=== PATIENT | female | born 1955 | race Caucasian/White ===

== ENCOUNTER 2017-04-11 08:23 | Day surgery (SDC) | payer OTHER ==
[2017-04-06 11:11] VITALS: BMI 37.2
[~2017-04-11 08:23] MED LIST: LACTATED RINGERS 1,000 ML IV SCH
[2017-04-11 09:10] VITALS: TEMP 98.3
[2017-04-11] MEDS ORDERED: LIDOCAINE 1% 20 ML VIAL (10MG/ML) FOR IV START INTRADERMA ONE (09:20)
[2017-04-11 09:25] LABS: Glucose,Whole Blood 121 mg/dL (75-99)
[2017-04-11] MEDS ORDERED: PROPOFOL 10 MG/ML 20 ML VIAL IV ONE (10:14)
--- NOTE | 2017-04-11 10:43 | P.PCN ---
Date of Procedure: 04/11/17 Preoperative Diagnosis: Postoperative Diagnosis: Procedure(s) Performed: Procedure: Total colonoscopy. Preoperative diagnosis: Screening for neoplasia. Postoperative diagnosis: Exam within normal limits. Preparation: HalfLytely prep. Sedation: Was provided by anesthesia. Brief clinical history: The patient is a 61-year-old female who is referred for this evaluation for screening for neoplasia. She has history of endometrial cancer for which she underwent hysterectomy and was advised surveillance colonoscopies every 5 years or so. She has no abdominal complaints, bleeding or anemia. Procedure: With the patient on her left lateral decubitus position and after informed consent and adequate sedation, the perianal area was inspected and it did not show any fissures or fistulas. There were no masses felt on digital rectal examination. The Olympus CFQ 160L video colonoscope was then inserted in the rectum in the usual fashion and advanced to the cecum. The mucosa appeared healthy. No polyps or tumors were seen or any obvious diverticular disease or other pathology. I retroflexed the endoscope in the rectum before the endoscope was withdrawn. The patient tolerated the procedure well. Plan: The patient was reassured. With her history, I recommended repeat exam in 5 years. Implants: Indications for Procedure: Operative Findings: Description of Procedure:
[2017-04-11 11:21] VITALS: BP 127/73; PULSE 57; RESP 16
== END 2017-04-11 11:36 | disposition home or self-care (01) ==
LOC: ORWHC2ENDO 08:23
DX: Z12.11 Encounter for screening for malignant neoplasm of colon (principal); I10 Essential (primary) hypertension; E78.5 Hyperlipidemia, unspecified; Z86.718 Personal history of other venous thrombosis and embolism; Z86.711 Personal history of pulmonary embolism; Z85.51 Personal history of malignant neoplasm of bladder; Z79.899 Other long term (current) drug therapy
CPT/HCPCS: J2704; G0121

== ENCOUNTER → 2018-06-07 | Outpatient (CLI) | payer OTHER ==
[2018-06-07 11:32] LABS: Blood Urea Nitrogen 18 mg/dL (7-17)
--- NOTE | 2018-06-07 13:28 | CT ---
EXAMINATION TYPE: CT ChestAbdPelvis w con DATE OF EXAM: 06/07/2018 COMPARISON: 02/23/2018 and 02/16/2017 HISTORY: History of endometrial CA CT DLP: 2339 mGycm. Automated Exposure Control for Dose Reduction was Utilized. CONTRAST: CT scan of the thorax, abdomen and pelvis is performed with IV Contrast, patient injected with 100 mL of Isovue 300. FINDINGS: LUNGS: Spiculated area of possible scarring is seen in the location of the previously identified roun ded 1.9 cm right lower lobe pulmonary nodule on series 4 image 31 on series 7 image 79. This could re late to posttreatment change. Additionally the previously seen 9 mm nodule within the lingula is not triangular appearance measuring approximately 4 mm on series 4 image 26. The adjacent previously seen left upper lobe pulmonary nodule is no longer identified with a ill-defined area of groundglass atte nuation in the region of the previously seen seen nodule on series 4 image 23. Additionally within th e anterior right upper lobe at the mediastinal border on series 4 image 20 in the previously seen loc ation of the 1.1 cm soft tissue mass there is an elongated residual 5 mm density. No new pulmonary no dules are seen. MEDIASTINUM: There are no greater than 1 cm hilar or mediastinal lymph nodes. No pericardial effusi on is seen. Mild coronary artery calcifications are present within the left main coronary artery. LIVER/GB: Hepatic parenchyma is diffusely hypoattenuated in comparison to that of the spleen, most co mmonly seen in hepatic steatosis. This finding limits evaluation for hepatic masses. No gross evidenc e of hepatic mass is seen. No intrahepatic biliary ductal dilatation. Gallbladder surgically absent. PANCREAS: No significant abnormality is seen. SPLEEN: No significant abnormality is seen. ADRENALS: No significant abnormality is seen. KIDNEYS: Kidneys enhance and excrete symmetrically. No hydronephrosis. Small posterior cortical renal scar is seen of the inferior pole. BOWEL: No dilated large or small bowel. Appendix is within normal limits of size, partially contrast- filled and partially air-filled. GENITAL ORGANS: Uterus is surgically absent. Ovaries are not identified and also may be surgically ab sent or atrophic LYMPH NODES: No greater than 1cm abdominal or pelvic lymph nodes are appreciated. Nonenlarged left ex ternal iliac chain lymph nodes are similar to the prior and seen on series 3 image 106 and 107. OSSEOUS STRUCTURES: Mild multilevel degenerative changes of the spine are noted. No new suspicious os seous lesions. IMPRESSION: 1. Response to treatment. Marked decrease in size of the bilateral pulmonary nodules with near comple te resolution. No new pulmonary nodules or mediastinal adenopathy. 2. No evidence of infradiaphragmatic visceral metastasis or lymphadenopathy.
== END ==
LOC: RADCTMAIN 10:46
PROVIDERS: ATTEND Obstetrics & Gynecology
DX: C54.1 Malignant neoplasm of endometrium (principal)
CPT/HCPCS: 82565; 84520; 71260; 74177; Q9967

== ENCOUNTER → 2018-10-29 | Outpatient (CLI) | payer OTHER ==
[2018-10-29 09:23] LABS: Blood Urea Nitrogen 22 mg/dL (7-17)
--- NOTE | 2018-10-29 10:28 | CT ---
EXAMINATION TYPE: CT chest w con DATE OF EXAM: 10/29/2018 COMPARISON: CT June 07, 2018 and older studies. PET/CT April 23, 2016. HISTORY: follow up Lung CA and Thoracotomy CT DLP: 618.40 mGycm. Automated Exposure Control for Dose Reduction was Utilized. TECHNIQUE: CT scan of the thorax is performed following with IV Contrast, patient injected with 100m l mL of Isovue 300. FINDINGS: LUNGS: Surgical sutures medially right infrahilar level are redemonstrated with adjacent irregular co nsolidation and/or parenchymal scarring, there is new tiny right pleural fluid collection on current study. Left lung remains clear. No obvious new nodule or mass is present. No pneumothorax is seen tera aterally. MEDIASTINUM: There are no new greater than 1 cm mediastinal lymph nodes. Some prominent but subcenti meter lymph nodes are seen. For reference right pericarinal lymph node measures 9 x 7 mm on current s tudy image 25 is larger versus most recent prior CT. There is enlarging low dense right hilar adenopa thy or low dense consolidation axial image 34 measuring 2.1 x 1.3 cm. No cardiomegaly or pericardial effusion is seen. Coronary artery calcification is redemonstrated which is noted marker for coronary artery disease. OTHER: Cholecystectomy clips are noted. Liver is low dense consistent with fatty infiltration. Some m ultilevel spurring in the thoracic spine is redemonstrated. IMPRESSION: New tiny right pleural effusion. Enlarging but subcentimeter mediastinal lymph node with new enlarged but low dense right hilar adenopathy or nodular consolidation. Recurrent neoplasm cannot be entirely excluded. Consider repeat PET/CT to further evaluate.
== END | disposition home or self-care (01) ==
LOC: RADCTMAIN 08:29
PROVIDERS: ATTEND Thoracic Surgery (Cardiothoracic Vascular Surgery)
DX: J90 Pleural effusion, not elsewhere classified (principal); R59.0 Localized enlarged lymph nodes; Z98.890 Other specified postprocedural states
CPT/HCPCS: 82565; 84520; 71260; 36415; Q9967

== ENCOUNTER → 2018-11-03 | Outpatient (CLI) | payer OTHER ==
--- NOTE | 2018-11-04 10:01 | PE ---
EXAMINATION TYPE: PET CT fusion skull to thigh DATE OF EXAM: 11/03/2018 COMPARISON: CT chest October 29, 2018. CT chest abdomen and pelvis June 07, 2018 and older CTs. PET/ CT April 23, 2016. HISTORY: History of right lung cancer diagnosed 2012 completed radiation treatment in August 2012 an d had right lung surgery July 11, 2018. TECHNIQUE: Following the intravenous administration of 14.41 mCi of F-18 FDG, whole body images are performed from the skull base to the midthigh. Images are reviewed on the computer in the coronal, a xial, and sagittal planes. Reconstructed rotating images are created on independent workstation and reviewed on the computer. A localization noncontrast CT is performed in conjunction with the PET sc an. SCAN: Subsequent FINDINGS: SKULL BASE AND NECK: No new areas of abnormal hypermetabolic uptake are present CHEST, MEDIASTINUM, AND HILAR REGION: Surgical change right infrahilar level medially there are axial image 86 is redemonstrated. No new areas of abnormal hypermetabolic uptake or suspicious nodularity is seen. Mild hypermetabolic uptake max SUV of 2.7 image 84 along area of linear scarring is presumed postsurgical. No suspicious adenopathy is present. New right-sided volume loss with mediastinal shif t is noted. No abnormal hypermetabolic uptake right infrahilar level at area of low dense consolidati on on recent CT noted near axial image 81. Trace right basilar pleural effusion axial image 103 is re demonstrated without hypermetabolic uptake. ABDOMEN AND PELVIS: There is small to moderate length segment of right: With mild to moderate wall th ickening over a length of roughly 6 cm on reconstructed coronal images, max SUV at this level is 4.96 . Concentric colonic neoplasm cannot be excluded. This area appeared fairly unremarkable with better contrast opacification on whole-body CT June 07, 2018. I would advise colonoscopy correlation of has not been performed in last 3 years. No additional areas of suspicious hypermetabolic uptake. OSSEOUS STRUCTURES: No areas of suspicious hypermetabolic uptake. OTHER CT: There is coronary artery calcification which is noted marker for coronary artery disease. Liver is diffusely low dense consistent with fatty infiltration. Cholecystectomy clips are redemonstr ated. Uterus is surgically absent or markedly atrophic. A few scattered pelvic phleboliths are present. There is mild calcified plaque of aorta extending into branch vessels. There is facet arthropathy in the lower lumbar spine. IMPRESSION: No suspicious hypermetabolic uptake in the mediastinum or right hilar region to suggest n eoplastic recurrence after surgery. No metastatic disease is seen. Only area of concern is the right colon on PET/CT, this area appeared fairly unremarkable on May 2018 whole-body CT.
== END ==
LOC: RADPETMAIN 11:52
PROVIDERS: ATTEND Obstetrics & Gynecology
DX: C54.1 Malignant neoplasm of endometrium (principal); R91.1 Solitary pulmonary nodule
CPT/HCPCS: 78815; A9552

== ENCOUNTER → 2019-05-10 | Outpatient (CLI) | payer OTHER ==
[2019-05-10 11:50] LABS: African American GFR (CKD) >90 (>60 ml/min/1.73 sqM); Blood Urea Nitrogen 19 mg/dL (7-17)
--- NOTE | 2019-05-10 14:11 | CT ---
EXAMINATION TYPE: CT ChestAbdPelvis w con DATE OF EXAM: 05/10/2019 COMPARISON: 10/29/2018 and 06/07/2018 HISTORY: R91.8 endometrial ca CONTRAST: CT scan of the chest, abdomen and pelvis is performed with Oral Contrast and with IV Contrast, patien t injected with 100 mL of Isovue 300. CT Chest: LUNGS: There is enlarging right perihilar mass measuring 3.9 x 2.0 cm. Neoplasm is not excluded. Line ar scarring is noted within the right middle lobe and right lower lobe. No additional mass is seen. R esolution of previously noted pleural effusion. MEDIASTINUM: Thoracic aorta is of normal caliber. The heart is not enlarged. No evidence for media stinal mass or adenopathy. HILAR STRUCTURES: No evidence for mass. No hilar adenopathy is appreciated. OTHER: No significant abnormality. CONTRAST CT ABDOMEN AND PELVIS FINDINGS: LIVER/GB: The gallbladder surgically absent. There is fatty hepatic infiltration noted. No space occu pying hepatic lesion. Biliary tree is of normal caliber. PANCREAS: No inflammation. No distinct mass. SPLEEN: No splenic enlargement. No lesion seen. ADRENALS: No nodule. No thickening. KIDNEYS/BLADDER: No hydronephrosis. No nephrolithiasis. No disctinct renal mass. BOWEL: Normal appendix. Normal bowel caliber. No inflammation. GENITAL ORGANS: Hysterectomy changes noted. No evidence for recurrent mass. The ovaries are not clear ly visualized. LYMPH NODES: No greater than 1cm abdominal or pelvic lymph nodes are appreciated. AORTA: No significant abnormality. OSSEOUS STRUCTURES: Vacuum disc changes lumbar spine. OTHER: No significant additional abnormality is seen. IMPRESSION: 1. Enlarging right hilar mass is suspicious for a neoplasm. Consider bronchoscopic evaluation and/or PET/CT. 2. Fatty liver. 3. No evidence for recurrent disease.
== END | disposition home or self-care (01) ==
LOC: RADCTMAIN 10:51
PROVIDERS: ATTEND Internal Medicine Hematology & Oncology
DX: Z03.89 Encounter for observation for other suspected diseases and conditions ruled out (principal); K76.0 Fatty (change of) liver, not elsewhere classified; R91.8 Other nonspecific abnormal finding of lung field; C54.1 Malignant neoplasm of endometrium
CPT/HCPCS: 82565; 84520; 71260; 74177; 36415; Q9967

== ENCOUNTER → 2019-06-08 | Outpatient (CLI) | payer OTHER ==
--- NOTE | 2019-06-12 10:57 | PE ---
Nuclear medicine PET/CT HISTORY: Carcinoma of endometrium, C 54.1, subsequent Patient received 11.1 mCi F-18 FDG intravenously in delayed scanning was performed from the skull bas e to the mid thighs. Localization and attenuation correction CT scan was performed. Correlation CT chest abdomen pelvis 05/10/2019, prior nuclear medicine PET/CT 11/03/2018 NECK and CHEST: Calcifications in the tonsillar pillars likely due to chronic infection. There is no cervical adenopathy. No abnormal supraclavicular, mediastinal, axillary, or hilar adenopathy. Coronar y artery calcification is present. The abnormal attenuation in the right lung base shows a similar ap pearance to previous CT, there are postop changes, findings at the right lung base likely represent r esidual postoperative finding, there is no associated hypermetabolic uptake, no pleural or pericardia l effusion. ABDOMEN: No evident liver mass or retroperitoneal adenopathy. No suspicious hypermetabolic uptake. Pa tient is post cholecystectomy. Uterus and adnexal structures are not seen. There is no pelvic adenopa thy or free fluid, no ascites. Osseous structures are stable. No suspicious hypermetabolic uptake. IMPRESSION: Postop changes. No recurrence evident.
== END | disposition home or self-care (01) ==
LOC: RADPETMAIN 10:00
PROVIDERS: ATTEND Internal Medicine Hematology & Oncology
DX: C54.1 Malignant neoplasm of endometrium (principal); Z90.49 Acquired absence of other specified parts of digestive tract
CPT/HCPCS: 78815; A9552

== ENCOUNTER 2019-07-19 10:25 | Day surgery (SDC) | payer OTHER ==
[2019-07-08 14:41] VITALS: BMI 38.0
[~2019-07-19 10:25] MED LIST changes: +ALBUTEROL NEB (CONC) 2.5 MG/0.5 ML INHALATION ONE; +DEXAMETHASONE SOD PHOSPHATE 10 MG/ML 1 ML VIAL IV ONE; +LIDOCAINE 1% 20 ML VIAL (10MG/ML) FOR IV START INTRADERMA PRN; +LIDOCAINE 2% (PF) 20 MG/ML 5 ML VIAL INHALATION ONE; +LIDOCAINE VISCOUS 300 MG/15 ML CUP MUCOUS MEM ONE; +MIDAZOLAM 2 MG/2 ML VIAL IV PRN; +MORPHINE SULFATE 2 MG/ML SYRINGE IV PRN; +ONDANSETRON 4 MG/2 ML VIAL IVP ONE; +ONDANSETRON 4 MG/2 ML VIAL IVP PRN; +SODIUM CHLORIDE 0.9% 1,000 ML IV SCH
[2019-07-19 11:17] LABS: Glucose,Whole Blood 121 mg/dL (75-99)
--- NOTE | 2019-07-19 13:26 | CT ---
EXAMINATION TYPE: CT Chest shabnam Holt Protocol DATE OF EXAM: 07/19/2019 COMPARISON: 06/08/2019 HISTORY: 64-year-old female Pre procedural imaging for navigational purposes, pulmonary nodule/mass. TECHNIQUE: Contiguous axial scanning of the chest without IV contrast. Both inspiratory and expiratio n for imaging is performed. Coronal and sagittal reconstructions performed. CT DLP: 727 mGycm Automated exposure control for dose reduction was used. FINDINGS: Imaging for navigational purposes. There seems to be some linear densities in the right lower lobe, q uestion some type of surgical material. Prior right posterior thoracotomy with some mild herniating f at into the subpleural region. Linear areas of probable scarring are present at the right base. Mild respiratory motion artifact in the lower lungs. No consolidation or pleural effusion. Heart upper limits of normal in size without pericardial effusion. Mild coronary vessel calcification s are noted. Ectatic ascending aorta 3.6 cm. Conventional arch vessel branching anatomy. No thoracic lymphadenopathy identified. Visualized upper abdomen shows cholecystectomy clips. Bones: Anterior endplate spondylosis lower thoracic spine. IMPRESSION: IMAGING FOR NAVIGATIONAL PURPOSES. LINEAR DENSITIES IN THE RIGHT LOWER LOBE MAY REPRESENT SURGICAL MA TERIAL ESPECIALLY GIVEN PRIOR THORACOTOMY CHANGE POSTERIOR RIGHT HEMITHORAX. SMALL AMOUNT OF HERNIATI NG FAT IS PRESENT EXTENDING INTO THE SUBPLEURAL REGION HERE.
[2019-07-19] MEDS ORDERED: ROCURONIUM BROMIDE 10 MG/ML 10 ML VIAL IV ONE (14:06)
[2019-07-19] MEDS ORDERED: MIDAZOLAM 2 MG/2 ML VIAL ONE (14:06)
[2019-07-19] MEDS ORDERED: fentaNYL (PF) 50 MCG/ML 2 ML AMP ONE (14:06)
[2019-07-19] MEDS ORDERED: GLYCOPYRROLATE 0.2 MG/ML 2 ML VIAL ONE (14:06)
[2019-07-19] MEDS ORDERED: SUCCINYLCHOLINE CHLORIDE 100 MG/5 ML SYR IV ONE (14:06)
[2019-07-19] MEDS ORDERED: LIDOCAINE 1% INJ 10MG/ML (20 ML MDV) ONE (14:06)
[2019-07-19] MEDS ORDERED: PROPOFOL 10 MG/ML 20 ML VIAL IV ONE (14:06)
[2019-07-19] MEDS ORDERED: NEOSTIGMINE 1 MG/ML 10 ML VIAL ONE (14:06)
[2019-07-19] MEDS ORDERED: ePHEDrine SULFATE/0.9% NACL/PF 50 MG/5 ML SYRINGE IV ONE (14:06)
[2019-07-19 15:20] VITALS: TEMP 97.6
[2019-07-19 15:42] LABS: Glucose,Whole Blood 148 mg/dL (75-99)
--- NOTE | 2019-07-19 15:49 | XR ---
EXAMINATION TYPE: XR chest 1V portable DATE OF EXAM: 07/19/2019 COMPARISON: CT dated 07/19/2019 HISTORY: Status post bronchoscopy TECHNIQUE: Single frontal view of the chest is obtained. FINDINGS: No postprocedural pneumothorax is seen. In comparison to the most recent chest x-ray of 06/20/2019 there are new multifocal opacities predominating at the right lung base, likely post procedura l atelectasis. Low lung volumes are noted. Surgical sutures at the right lung base are suboptimally v iewed given slight underpenetration and patient body habitus. Cardiomediastinal silhouette remains en larged. No acute osseous pathology. IMPRESSION: New multifocal airspace disease likely relates to postprocedural multifocal atelectasis with low lung volumes. No postprocedural pneumothorax is seen.
[2019-07-19 16:44] VITALS: RESP 20
[2019-07-19 16:57] VITALS: BP 132/70; PULSE 81
--- NOTE | 2019-07-19 17:51 | P.PCN ---
Date of Procedure: 07/19/19 Preoperative Diagnosis: Right middle lobe opacity Postoperative Diagnosis: Right middle lobe opacity Procedure(s) Performed: Navigational bronchoscopy, TBNA and TBBX of the RML lobe opacity Anesthesia: FLO Surgeon: Chago Morales [employer]ens Fabricating Machine Tender #1: Becki Newton Estimated Blood Loss (ml): 5 Pathology: other Condition: stable Disposition: same day Operative Findings: The patient underwent a CT of the chest using the Veran protocol to map the right middle lobe opacity. This computed tomography scan was performed and the right middle lobe opacity was identified and was mapped and its trajectory leading to the right middle lobe opacity was established. Following that, all this information was uploaded into the [employer] navigational tower. The patient was brought into the operating room. The VPADS were already applied to his chest. The patient was intubated and placed on a mechanical ventilator in the usual fashion by the help of IMPRESSION PRINTER. After achieving adequate anesthesia, the flexible bronchoscope was inserted to the orotracheal tube and was advanced into the lower trachea. Examination of the airways was done. Trachea in this distal portion was within normal limits. Franchesca was sharp in the midline. Examination of the right side showed a right mainstem bronchus was normal, right upper lobe bronchus was normal, the stump for a right lung pneumonectomy was within normal limits and the right middle lobe was identified with 2 segments being the medial and the lateral segment. Examination of the left side include the left mainstem bronchus, left upper lobe bronchus and left lower lobe bronchus and all of the structures were within normal limits. The airway examination was completed. Following that using the forceps navigational system, the appropriate calibration was done using the primary franchesca and the secondary franchesca and the right upper lobe as a reference points. Bronchoscope was then navigated into the right middle lobe bronchus and under navigational guidance, transbronchial needle aspirate and transbronchial biopsies of the right midlung opacity was done without any complications. Several passes were obtained using a 19-gauge cytology needle. Several transbronchial biopsies were also obtained. No bleeding was encountered. Total amount of bleed was less than 5 mL. Bronchoscope was removed and the patient was extubated blood any major difficulties. The patient was seen in recovery and the patient was doing extremely well. The patient will be discharged home once cleared by anesthesia to be followed up on outpatient basis. Note that the airways inspection showed no endobronchial tumors or lesions. There was a normal right lower lobe lobectomy stump.
== END 2019-07-19 17:14 | disposition home or self-care (01) ==
LOC: ORWHC2ENDO 10:25
PROVIDERS: ATTEND Internal Medicine Critical Care Medicine
DX: J98.4 Other disorders of lung (principal); I10 Essential (primary) hypertension; E78.00 Pure hypercholesterolemia, unspecified; E78.5 Hyperlipidemia, unspecified; F32.9 Major depressive disorder, single episode, unspecified; E66.9 Obesity, unspecified; Z68.38 Body mass index [BMI] 38.0-38.9, adult; E11.9 Type 2 diabetes mellitus without complications; Z85.42 Personal history of malignant neoplasm of other parts of uterus; Z90.710 Acquired absence of both cervix and uterus; Z90.49 Acquired absence of other specified parts of digestive tract; Z79.1 Long term (current) use of non-steroidal anti-inflammatories (NSAID); Z79.899 Other long term (current) drug therapy; Z88.8 Allergy status to other drugs, medicaments and biological substances
CPT/HCPCS: 31628; 31627; 88305; 88173; 71045; 71250; J2250; J1100; J2710; J2405; J2001; J3010; J0330; J2704

== ENCOUNTER → 2019-08-12 | Outpatient (CLI) | payer OTHER ==
--- NOTE | 2019-08-12 13:42 | FL ---
EXAMINATION TYPE: FL barium swallow DATE OF EXAM: 08/12/2019 CLINICAL HISTORY: Dysphagia. Prior thoracic surgery. TECHNIQUE: A double contrast esophagram is performed utilizing air and barium. A total of 1 minute and 3 seconds of fluoroscopic time was utilized during procedure. 43 fluoroscopic images were saved. COMPARISON: None FINDINGS: The esophagus shows normal motility and emptying into the stomach. Very small hiatal hernia is noted seen best in the supine position. There is mild gastroesophageal reflux present. No esophag eal strictures seen. Esophageal mucosa is regular other than minimal impression on the posterior cerv ical esophagus by small anterior osteophytes of the cervical spine. Surgical clips are noted in the a bdomen. Slight delay of passage of contrast through the very small hiatal hernia is seen at the gastr oesophageal junction. IMPRESSION: Very small hiatal hernia and mild degree gastroesophageal reflux.
== END ==
LOC: RADUSWWP 08:42
PROVIDERS: ATTEND Family Medicine
DX: K44.9 Diaphragmatic hernia without obstruction or gangrene (principal); K21.9 Gastro-esophageal reflux disease without esophagitis
CPT/HCPCS: 74220

== ENCOUNTER 2019-08-15 06:58 | Day surgery (SDC) | payer OTHER ==
[2019-08-13 15:27] VITALS: BMI 38.0
[~2019-08-15 06:58] MED LIST changes: -ALBUTEROL NEB (CONC) 2.5 MG/0.5 ML INHALATION ONE; -DEXAMETHASONE SOD PHOSPHATE 10 MG/ML 1 ML VIAL IV ONE; -LIDOCAINE 2% (PF) 20 MG/ML 5 ML VIAL INHALATION ONE; -LIDOCAINE VISCOUS 300 MG/15 ML CUP MUCOUS MEM ONE; -MIDAZOLAM 2 MG/2 ML VIAL IV PRN; -MORPHINE SULFATE 2 MG/ML SYRINGE IV PRN; -ONDANSETRON 4 MG/2 ML VIAL IVP ONE; -ONDANSETRON 4 MG/2 ML VIAL IVP PRN; -SODIUM CHLORIDE 0.9% 1,000 ML IV SCH
[2019-08-15 07:19] VITALS: RESP 18; TEMP 98.2
[2019-08-15 07:22] LABS: Glucose,Whole Blood 131 mg/dL (75-99)
[2019-08-15] MEDS ORDERED: LIDOCAINE 1% INJ 10MG/ML (20 ML MDV) ONE (07:32)
[2019-08-15] MEDS ORDERED: PROPOFOL 10 MG/ML 20 ML VIAL IV ONE (07:32)
--- NOTE | 2019-08-15 07:43 | P.GSHP ---
History of Present Illness H&P Date: 08/15/19 CHIEF COMPLAINT: Colon screen HISTORY OF PRESENT ILLNESS: The patient is a 64-year-old female who presents for colon screen. Lower endoscopy was offered for further evaluation and management. PAST MEDICAL HISTORY: Please see list. PAST SURGICAL HISTORY: Please see list. MEDICATIONS: Please see list. ALLERGIES: Please see list. SOCIAL HISTORY: No illicit drug use FAMILY HISTORY: No reports of Crohn disease or ulcerative colitis. REVIEW OF ORGAN SYSTEMS: CONSTITUTIONAL: No reports of fevers or chills. PHYSICAL EXAM: VITAL SIGNS: Stable GENERAL: Well-developed pleasant in no acute distress. HEENT: No scleral icterus. Extraocular movements grossly intact. Moist buccal mucosa. NECK: Supple without lymphadenopathy. CHEST: Unlabored respirations. Equal bilateral excursions. CARDIOVASCULAR: Regular rate and rhythm. Distal 2+ pulses. ABDOMEN: Soft, nontender, nondistended. MUSCULOSKELETAL: No clubbing, cyanosis, or edema. ASSESSMENT: 1. Colon screen. PLAN: 1. Recommend proceeding with a lower endoscopy Past Medical History Past Medical History: Cancer, Diabetes Mellitus, Deep Vein Thrombosis (DVT), Hyperlipidemia, Hypertension, Pulmonary Embolus (PE) Additional Past Medical History / Comment(s): HX lung and endometrial CANCER- received internal radiation for endometrial CA. HAD DVT LT LEG THAT TURNED INTO PE AT AGE 23. BORDERLINE DIABETIC-NO MEDS History of Any Multi-Drug Resistant Organisms: None Reported Past Surgical History: Cholecystectomy, Hysterectomy, Orthopedic Surgery Additional Past Surgical History / Comment(s): RT KNEE SX. LT KNEE SX-NO KNEE CAP. COLONOSOCPY. LUNG SX 4/5TH OF RT LOWER LUNG REMOVED R/T CANCER Past Anesthesia/Blood Transfusion Reactions: No Reported Reaction Smoking Status: Never smoker - Past Family History Mother History Unknown: Yes Additional Family Medical History / Comment(s): PT ADOPTED-FAMILY HHX UNKNOWN Medications and Allergies Home Medications Medication Instructions Recorded Confirmed Type Cholecalciferol [Vitamin D3] 2,000 unit PO DAILY 04/06/17 08/15/19 History Cinnamon Bark [Cinnamon] 1,000 mg PO BID 04/06/17 08/15/19 History Etodolac 500 mg PO BID 04/06/17 08/15/19 History Fish Oil/Dha/Epa [Fish Oil 1,200 1,200 mg PO DAILY 04/06/17 08/15/19 History mg Fish Oil] Sertraline [Zoloft] 100 mg PO QAM 04/06/17 08/15/19 History Simvastatin 40 mg PO HS 04/06/17 08/15/19 History Triamterene/Hydrochlorothiazid 1 each PO DAILY 04/06/17 08/15/19 History [Triamterene-Hctz 37.5-25 mg Tb] Vitamin B Complex 1 each PO DAILY 04/06/17 08/15/19 History Gabapentin [Neurontin] 100 mg PO BID 07/08/19 08/15/19 History Allergies Allergy/AdvReac Type Severity Reaction Status Date / Time No Known Allergies Allergy Verified 08/13/19 15:21 Surgical - Exam Vital Signs Temp Pulse Resp BP Pulse Ox 98.2 F 87 18 169/72 96 08/15/19 07:14 08/15/19 07:14 08/15/19 07:14 08/15/19 07:14 08/15/19 07:14 Results - Labs Abnormal Lab Results - Last 24 Hours (Table) 08/15/19 Range/Units 07:18 POC Glucose (mg/dL) 131 H (75-99) mg/dL
--- NOTE | 2019-08-15 07:57 | P.PCN ---
Date of Procedure: 08/15/19 Description of Procedure: PREOPERATIVE DIAGNOSIS: Colonoscopy screening. POSTOPERATIVE DIAGNOSIS: Colonoscopy screening. OPERATION: Colonoscopy to the ileocecal valve and appendiceal orifice. SURGEON: Elizabeth Delaney MD. ANESTHESIA: MAC. INDICATIONS: The patient is a 64-year-old female who presents for colonoscopy screening. Benefits and risks were described and informed consent was obtained. DESCRIPTION OF PROCEDURE: The patient had undergone Suprep. She had been brought into the operating room and laid in the left lateral decubitus position. After adequate intravenous sedation, the rectum was examined with 2% lidocaine jelly. No external hemorrhoids were encountered. The rectal tone was within normal limits. No lesions were fair. The scope was removed with visualization of each mucosal fold. No scattered diverticulosis was encountered. No colonic polyps were found. No evidence of focal colitis was found. Retroflexion of the scope demonstrated grade 1 internal hemorrhoids without active bleeding or inflammation. The colon was desufflated. The patient had tolerated the procedure well. Withdrawal time was over 6 minutes. FINDINGS: Aronchick preparation quality scale 2 (1-5) Internal hemorrhoids, grade 1 No external prolapsed hemorrhoids. No arteriovenous malformations. No adenomatous polyps. No focal colitis. No sigmoid diverticulosis RECOMMENDATIONS: Lower endoscopy in 5 years, 2023 or Cologuard home test Plan - Discharge Summary Discharge Rx Participant: No New Discharge Prescriptions: No Action Cholecalciferol [Vitamin D3] 2,000 unit PO DAILY Sertraline [Zoloft] 100 mg PO QAM Vitamin B Complex 1 each PO DAILY Triamterene/Hydrochlorothiazid [Triamterene-Hctz 37.5-25 mg Tb] 1 each PO DAILY Simvastatin 40 mg PO HS Fish Oil/Dha/Epa [Fish Oil 1,200 mg Fish Oil] 1,200 mg PO DAILY Etodolac 500 mg PO BID Cinnamon Bark [Cinnamon] 1,000 mg PO BID Gabapentin [Neurontin] 100 mg PO BID Discharge Medication List Cholecalciferol [Vitamin D3] 2,000 unit PO DAILY 04/06/17 [History] Cinnamon Bark [Cinnamon] 1,000 mg PO BID 04/06/17 [History] Etodolac 500 mg PO BID 04/06/17 [History] Fish Oil/Dha/Epa [Fish Oil 1,200 mg Fish Oil] 1,200 mg PO DAILY 04/06/17 [History] Sertraline [Zoloft] 100 mg PO QAM 04/06/17 [History] Simvastatin 40 mg PO HS 04/06/17 [History] Triamterene/Hydrochlorothiazid [Triamterene-Hctz 37.5-25 mg Tb] 1 each PO DAILY 04/06/17 [History] Vitamin B Complex 1 each PO DAILY 04/06/17 [History] Gabapentin [Neurontin] 100 mg PO BID 07/08/19 [History] Follow up Appointment(s)/Referral(s): Elizabeth Delnaey MD [STAFF PHYSICIAN] - As Needed Patient Instructions/Handouts: *Sur[facility] - (Anesthesia) Endoscopy Discharge Instructions Activity/Diet/Wound Care/Special Instructions: Repeat colonoscopy in 5 years, 2023 or Cologuard home test Discharge Disposition: HOME SELF-CARE
[2019-08-15 08:05] LABS: Glucose,Whole Blood 132 mg/dL (75-99)
[2019-08-15 09:20] VITALS: BP 127/76; PULSE 64
== END 2019-08-15 08:45 | disposition home or self-care (01) ==
LOC: ORWHC2ENDO 06:58
PROVIDERS: ATTEND Surgery Plastic and Reconstructive Surgery
DX: Z12.11 Encounter for screening for malignant neoplasm of colon (principal); K64.0 First degree hemorrhoids; E78.5 Hyperlipidemia, unspecified; I10 Essential (primary) hypertension; Z85.42 Personal history of malignant neoplasm of other parts of uterus; Z86.711 Personal history of pulmonary embolism; Z86.718 Personal history of other venous thrombosis and embolism; Z90.49 Acquired absence of other specified parts of digestive tract; Z79.899 Other long term (current) drug therapy; F32.9 Major depressive disorder, single episode, unspecified
CPT/HCPCS: J2001; J2704; G0121

== ENCOUNTER → 2019-10-31 | Outpatient (CLI) | payer OTHER ==
[2019-10-31 10:02] LABS: African American GFR (CKD) >90 (>60 ml/min/1.73 sqM); Blood Urea Nitrogen 27 mg/dL (7-17); Non-African American GFR(CKD) >90 (>60 ml/min/1.73 sqM)
--- NOTE | 2019-10-31 11:43 | CT ---
EXAMINATION TYPE: CT ChestAbdPelvis w con DATE OF EXAM: 10/31/2019 COMPARISON: PET/CT June 08, 2019. CT May 10, 2019 and older CTs HISTORY: Endometrial cancer CT DLP: 2735.9 mGycm. Automated Exposure Control for Dose Reduction was Utilized. CONTRAST: CT scan of the thorax, abdomen and pelvis is performed with IV Contrast, patient injected with 100 mL of Isovue 300. FINDINGS: LUNGS: There are some patchy bibasilar linear scarring and/or atelectasis. There is low dense consoli dation or mass right infrahilar level axial image 23 measuring 3.1 x 1.2 cm unchanged from most recen t CT May 10, 2019 and not significantly changed from PET CT axial image 87 where area was ametabolic . This is presumed the area targeted on bronchoscopy July 19, 2019, correlate clinically. No new nodules or masses. No pleural effusion or pneumothorax. Lung volumes. MEDIASTINUM: There are no greater than 1 cm hilar or mediastinal lymph nodes. No cardiomegaly or pe ricardial effusion is seen. Coronary artery calcification is present which is noted marked underlyin g coronary artery disease. LIVER/GB: Liver remains low dense consistent with diffuse fatty infiltration. Cholecystectomy clips a re redemonstrated. PANCREAS: No significant abnormality is seen. SPLEEN: No significant abnormality is seen. ADRENALS: No significant abnormality is seen. KIDNEYS: No significant abnormality is seen. BOWEL: Oral contrast reaches hepatic flexure. Mild to moderate prominence of fecal material transvers e colon through splenic flexure. No suspicious small or large bowel dilatation. Incidental normal-francisoc javier earing appendix from cecum right lower quadrant. GENITAL ORGANS: Uterus is surgically absent. No concerning new pelvic mass. LYMPH NODES: No greater than 1cm abdominal or pelvic lymph nodes are appreciated. OSSEOUS STRUCTURES: Multilevel spurring in the spine. Facet arthropathy lower lumbar levels. OTHER: No significant additional abnormality is seen. IMPRESSION: No new suspicious mass or adenopathy to suggest neoplastic recurrence.
== END | disposition home or self-care (01) ==
LOC: RADCTMAIN 08:52
PROVIDERS: ATTEND Internal Medicine Hematology & Oncology
DX: R91.1 Solitary pulmonary nodule (principal); C54.1 Malignant neoplasm of endometrium
CPT/HCPCS: 82565; 84520; 71260; 74177; 36415; Q9967 ×2

== ENCOUNTER → 2020-04-30 | Outpatient (CLI) | payer OTHER ==
[2020-04-30 11:20] LABS: African American GFR (CKD) >90 (>60 ml/min/1.73 sqM); Blood Urea Nitrogen 19 mg/dL (7-17); Non-African American GFR(CKD) >90 (>60 ml/min/1.73 sqM)
--- NOTE | 2020-04-30 12:23 | CT ---
EXAMINATION TYPE: CT chest w con DATE OF EXAM: 04/30/2020 COMPARISON: 10/31/2019, 07/19/2019, and 05/10/2019 HISTORY: 65-year-old female Follow up nodule. J98.4. TECHNIQUE: Contiguous axial scanning of the chest after the administration of 100 mL of Isovue 300. Coronal/sagittal reconstructions performed. CT DLP: 770mGycm. Automatic exposure control utilized for a dose reduction. FINDINGS: Heart normal size without pericardial effusion. Some LAD calcifications are noted. Ascending aorta borderline ectatic at 3.5 cm. Conventional arch vessel branching anatomy. Right infrahilar mixed soft tissue and fat density area measuring 3.7 x 2.0 cm remains unchanged back to at least 05/02/2019. Some surgical material is present along the medial right lower lobe along wit h some curvilinear scarring. Additional low-density curvilinear band extending superiorly along the u pper right major fissure, axial image 22 through 24 is also unchanged. Right posterolateral thoracotomy change with small amount of fat herniating into the subpleural regio n is unchanged. No new pulmonary nodules. No consolidation or pleural effusion. Visualized upper abdomen shows suspected hepatic steatosis. Cholecystectomy clips. Bones: Again, right-sided thoracotomy change. No osseous destructive process. IMPRESSION: 1. Stable right infrahilar mixed soft tissue and low density masslike opacity measuring 3.7 x 2.0 cm. Unchanged back to at least 05/10/2019 with adjacent postsurgical change. Possible scar and posttreatm ent change. 2. No suspicious pulmonary nodules or lymphadenopathy seen. 3. Hepatic steatosis.
== END | disposition home or self-care (01) ==
LOC: RADCTMAIN 10:13
PROVIDERS: ATTEND Internal Medicine Hematology & Oncology
DX: J98.4 Other disorders of lung (principal)
CPT/HCPCS: 82565; 84520; 71260; Q9967

== ENCOUNTER 2020-05-18 17:56 | Emergency (ER) | payer OTHER ==
[2020-05-18 19:15] VITALS: TEMP 98.7
[2020-05-18] MEDS ORDERED: SODIUM CHLORIDE 0.9% 1,000 ML IV STA (19:21)
[2020-05-18] MEDS ORDERED: HYDROmorphone 1 MG/ML 1 ML SYRINGE IVP STA (19:21)
[2020-05-18] MEDS ORDERED: ONDANSETRON 4 MG/2 ML VIAL IVP STA (19:21)
--- NOTE | 2020-05-18 19:44 | ED ---
Back Pain HPI - General Chief Complaint: Back Pain/Injury Stated Complaint: Back Pain Time Seen by Provider: 05/18/20 19:02 Source: patient, EMS - History of Present Illness Initial Comments: 65-year-old female patient presents to the emergency department today for evaluation of left-sided back pain. Patient states that couple of days ago she had some mild pain to the left low back. States that over the last 2 days the symptoms have worsen significantly. States it seems to be spasming until sharp. States it hurts worse never she moves or takes a deep breath. She denies any hematuria, dysuria, urinary frequency, urinary urgency. Denies radiation of the pain down her legs. Denies numbness or tingling in the legs. She denies any loss of bowel or bladder control. Patient states the pain does radiate to the left lower quadrant abdomen. She did have an episode of vomiting today has been nauseous. She denies any fevers but states she has been chilled. Patient denies any recent rash, cough, shortness of breath, chest pain, diarrhea, constipation, dizziness, weakness, headache, visual changes, or any other complaints. - Related Data Home Medications Medication Instructions Recorded Confirmed Cholecalciferol [Vitamin D3] 2,000 unit PO DAILY 04/06/17 05/18/20 Cinnamon Bark [Cinnamon] 1,000 mg PO BID 04/06/17 05/18/20 Etodolac 500 mg PO BID 04/06/17 05/18/20 Fish Oil/Dha/Epa [Fish Oil 1,200 1,200 mg PO DAILY 04/06/17 05/18/20 mg Fish Oil] Sertraline [Zoloft] 100 mg PO QAM 04/06/17 05/18/20 Simvastatin 40 mg PO HS 04/06/17 05/18/20 Triamterene/Hydrochlorothiazid 1 each PO DAILY 04/06/17 05/18/20 [Triamterene-Hctz 37.5-25 mg Tb] Vitamin B Complex 1 each PO DAILY 04/06/17 05/18/20 Gabapentin [Neurontin] 100 mg PO TID 07/08/19 05/18/20 Previous Rx's Medication Instructions Recorded Acetaminophen-Codeine 300-30mg 1 tab PO Q6H PRN #12 tablet 05/18/20 [Tylenol #3] Cyclobenzaprine [Flexeril] 10 mg PO TID #20 tab 05/18/20 Naproxen [EC-Naprosyn] 500 mg PO BID PRN #30 tablet. 05/18/20 Allergies Allergy/AdvReac Type Severity Reaction Status Date / Time No Known Allergies Allergy Verified 05/18/20 22:14 Review of Systems ROS Statement: Those systems with pertinent positive or pertinent negative responses have been documented in the HPI. ROS Other: All systems not noted in ROS Statement are negative. Past Medical History Past Medical History: Hyperlipidemia, Hypertension Additional Past Medical History / Comment(s): HX lung and endometrial CANCER. HAD DVT LT LEG THAT TURNED INTO PE AT AGE 23. BORDERLINE DIABETIC-NO MEDS. chronic back pain History of Any Multi-Drug Resistant Organisms: None Reported Past Surgical History: Cholecystectomy, Hysterectomy, Orthopedic Surgery Additional Past Surgical History / Comment(s): RT KNEE SX. LT KNEE SX-NO KNEE CAP. COLONOSOCPY. LUNG SX 4/5TH OF RT LOWER LUNG REMOVED R/T CANCER Past Anesthesia/Blood Transfusion Reactions: No Reported Reaction Past Psychological History: Depression Smoking Status: Never smoker - Past Family History Mother History Unknown: Yes Additional Family Medical History / Comment(s): PT ADOPTED-FAMILY HHX UNKNOWN General Exam General appearance: alert, in no apparent distress, other (This is a well- developed, well-nourished adult female patient in no acute distress. Vital signs upon presentation are temperature 97.8F, pulse 65, respirations 17, blood pressure 151/72, pulse ox 97% on room air) Eye exam: Present: normal appearance, PERRL, EOMI. Absent: scleral icterus, conjunctival injection, periorbital swelling ENT exam: Present: normal exam, normal oropharynx, mucous membranes moist Respiratory exam: Present: normal lung sounds bilaterally. Absent: respiratory distress, wheezes, rales, rhonchi, stridor Cardiovascular Exam: Present: regular rate, normal rhythm, normal heart sounds. Absent: systolic murmur, diastolic murmur, rubs, gallop, clicks GI/Abdominal exam: Present: soft, tenderness (Left lower quadrant), normal bowel sounds. Absent: distended, guarding, rebound, rigid Back exam: Present: normal inspection, paraspinal tenderness (Left lumbar paraspinal tenderness) Neurological exam: Present: alert, oriented X3, CN II-XII intact Psychiatric exam: Present: normal affect, normal mood Skin exam: Present: warm, dry, intact, normal color. Absent: rash Course Vital Signs 05/18/20 05/18/20 05/18/20 18:09 19:13 21:33 Temperature 97.8 F 98.7 F Pulse Rate 65 65 78 Respiratory 17 20 18 Rate Blood Pressure 151/72 141/67 151/74 O2 Sat by Pulse 97 94 L 96 Oximetry Medical Decision Making - Medical Decision Making 65-year-old female patient presents to the emergency department today for evaluation of left back pain with radiation into the left lower quadrant abdomen. Physical examination did reveal left flank tenderness, left lower quadrant tenderness. She is afebrile normal vital signs. Labs reviewed and are unremarkable. CT abdomen and pelvis was obtained and is unremarkable. Patient has been moving to a new home, states she has been lifting a lot of things. Symptoms are consistent with mechanical back pain and muscle spasms. We will treat with anti-inflammatories and muscle relaxers. She is instructed to follow-up with her primary care physician for recheck in 1-2 days. Return parameters were discussed in detail. She verbalizes understanding and agrees with this plan. - Lab Data Result diagrams: 05/18/20 19:42 05/18/20 19:42 Lab Results 05/18/20 05/18/20 05/18/20 Range/Units 19:42 19:42 19:42 WBC 7.4 (3.8-10.6) k/uL RBC 4.25 (3.80-5.40) m/uL Hgb 13.1 (11.4-16.0) gm/dL Hct 38.7 (34.0-46.0) % MCV 91.1 (80.0-100.0) fL MCH 30.9 (25.0-35.0) pg MCHC 33.9 (31.0-37.0) g/dL RDW 12.3 (11.5-15.5) % Plt Count 215 (150-450) k/uL Neutrophils % 67 % Lymphocytes % 23 % Monocytes % 5 % Eosinophils % 2 % Basophils % 1 % Neutrophils # 4.9 (1.3-7.7) k/uL Lymphocytes # 1.7 (1.0-4.8) k/uL Monocytes # 0.4 (0-1.0) k/uL Eosinophils # 0.2 (0-0.7) k/uL Basophils # 0.1 (0-0.2) k/uL Sodium 138 (137-145) mmol/L Potassium 4.1 (3.5-5.1) mmol/L Chloride 105 (98-107) mmol/L Carbon Dioxide 26 (22-30) mmol/L Anion Gap 7 mmol/L BUN 15 (7-17) mg/dL Creatinine 0.66 (0.52-1.04) mg/dL Est GFR (CKD-EPI)AfAm >90 (>60 ml/min/1.73 sqM) Est GFR (CKD-EPI)NonAf >90 (>60 ml/min/1.73 sqM) Glucose 128 H (74-99) mg/dL Plasma Lactic Acid Goyo 1.2 (0.7-2.0) mmol/L Calcium 9.9 (8.4-10.2) mg/dL Total Bilirubin 0.7 (0.2-1.3) mg/dL AST 30 (14-36) U/L ALT 30 (4-34) U/L Alkaline Phosphatase 71 (38-126) U/L Total Protein 7.0 (6.3-8.2) g/dL Albumin 4.6 (3.5-5.0) g/dL Amylase 51 (30-110) U/L Lipase 166 (23-300) U/L Urine Color Urine Appearance (Clear) Urine pH (5.0-8.0) Ur Specific Bartlett (1.001-1.035) Urine Protein (Negative) Urine Glucose (UA) (Negative) Urine Ketones (Negative) Urine Blood (Negative) Urine Nitrite (Negative) Urine Bilirubin (Negative) Urine Urobilinogen (<2.0) mg/dL Ur Leukocyte Esterase (Negative) 05/18/20 Range/Units 21:55 WBC (3.8-10.6) k/uL RBC (3.80-5.40) m/uL Hgb (11.4-16.0) gm/dL Hct (34.0-46.0) % MCV (80.0-100.0) fL MCH (25.0-35.0) pg MCHC (31.0-37.0) g/dL RDW (11.5-15.5) % Plt Count (150-450) k/uL Neutrophils % % Lymphocytes % % Monocytes % % Eosinophils % % Basophils % % Neutrophils # (1.3-7.7) k/uL Lymphocytes # (1.0-4.8) k/uL Monocytes # (0-1.0) k/uL Eosinophils # (0-0.7) k/uL Basophils # (0-0.2) k/uL Sodium (137-145) mmol/L Potassium (3.5-5.1) mmol/L Chloride (98-107) mmol/L Carbon Dioxide (22-30) mmol/L Anion Gap mmol/L BUN (7-17) mg/dL Creatinine (0.52-1.04) mg/dL Est GFR (CKD-EPI)AfAm (>60 ml/min/1.73 sqM) Est GFR (CKD-EPI)NonAf (>60 ml/min/1.73 sqM) Glucose (74-99) mg/dL Plasma Lactic Acid Goyo (0.7-2.0) mmol/L Calcium (8.4-10.2) mg/dL Total Bilirubin (0.2-1.3) mg/dL AST (14-36) U/L ALT (4-34) U/L Alkaline Phosphatase (38-126) U/L Total Protein (6.3-8.2) g/dL Albumin (3.5-5.0) g/dL Amylase (30-110) U/L Lipase (23-300) U/L Urine Color Yellow Urine Appearance Clear (Clear) Urine pH 5.0 (5.0-8.0) Ur Specific Bartlett 1.049 H (1.001-1.035) Urine Protein Negative (Negative) Urine Glucose (UA) Negative (Negative) Urine Ketones Negative (Negative) Urine Blood Negative (Negative) Urine Nitrite Negative (Negative) Urine Bilirubin 1+ H (Negative) Urine Urobilinogen <2.0 (<2.0) mg/dL Ur Leukocyte Esterase Negative (Negative) - Radiology Data Radiology results: report reviewed, image reviewed CT abdomen and pelvis is obtained. Report reviewed in its entirety. Impression by Dr. Huff shows no suspicious abnormality to account for flank pain. Mild fatty infiltration of liver. Disposition Clinical Impression: Spasm of muscle of lower back Disposition: HOME SELF-CARE Condition: Good Instructions (If sedation given, give patient instructions): Acute Low Back Pain (ED), Muscle Spasm (ED) Additional Instructions: Apply warm moist heat over the painful areas. Take medications as directed. Perform gentle range of motion exercises. Avoid prolonged episodes of sitting or standing as this will make your pain worse. Follow-up with your primary care physician for recheck in 1-2 days. Return to the emergency department im mediately for any new, worsening, or concerning symptoms. Prescriptions: Naproxen [EC-Naprosyn] 500 mg PO BID PRN #30 tablet. PRN Reason: Pain Cyclobenzaprine [Flexeril] 10 mg PO TID #20 tab Acetaminophen-Codeine 300-30mg [Tylenol #3] 1 tab PO Q6H PRN #12 tablet PRN Reason: Pain Is patient prescribed a controlled substance at d/c from ED?: No Referrals: Camron Byrne DO [Primary Care Provider] - 1-2 days Time of Disposition: 22:09
[2020-05-18 19:55] LABS: Basophils # (A) 0.1 k/uL (0-0.2); Basophils % (A) 1 %; Eosinophils # (A) 0.2 k/uL (0-0.7); Eosinophils % (A) 2 %; HCT 38.7 % (34.0-46.0); HGB 13.1 gm/dL (11.4-16.0); Lymphocytes # (A) 1.7 k/uL (1.0-4.8); Lymphocytes % (A) 23 %; MCH 30.9 pg (25.0-35.0); MCHC 33.9 g/dL (31.0-37.0); MCV 91.1 fL (80.0-100.0); Mean Platelet Volume 7.9; Monocytes # (A) 0.4 k/uL (0-1.0); Monocytes % (A) 5 %; Neutrophils # (A) 4.9 k/uL (1.3-7.7); Neutrophils % (A) 67 %; Platelet Count 215 k/uL (150-450); RBC 4.25 m/uL (3.80-5.40); RDW 12.3 % (11.5-15.5); WBC 7.4 k/uL (3.8-10.6)
[2020-05-18 20:05] LABS: ALT 30 U/L (4-34); AST 30 U/L (14-36); African American GFR (CKD) >90 (>60 ml/min/1.73 sqM); Albumin 4.6 g/dL (3.5-5.0); Alkaline Phosphatase 71 U/L (38-126); Amylase 51 U/L (30-110); Anion Gap 7 mmol/L; Blood Urea Nitrogen 15 mg/dL (7-17); Calcium 9.9 mg/dL (8.4-10.2); Carbon Dioxide 26 mmol/L (22-30); Chloride 105 mmol/L (98-107); Glucose 128 mg/dL (74-99); Non-African American GFR(CKD) >90 (>60 ml/min/1.73 sqM); Potassium 4.1 mmol/L (3.5-5.1); Sodium 138 mmol/L (137-145); Total Bilirubin 0.7 mg/dL (0.2-1.3)
--- NOTE | 2020-05-18 21:17 | CT ---
EXAMINATION TYPE: CT abdomen pelvis w con DATE OF EXAM: 05/18/2020 COMPARISON: 10/31/2019 INDICATION: abdominal/flank pain DLP: 2099.9 mGycm, Automated exposure control for dose reduction was used. CONTRAST: 100 mL of Isovue 300. Study performed without Oral Contrast TECHNIQUE: Axial images were obtained from above the diaphragm to the pubic rami in the axial plane a t 5 mm thick sections. Reconstructed images are reviewed on the computer in the coronal plane. FINDINGS: Limited CT sections are obtained the lung bases. Some mild streak atelectasis posterior right lung b ase.. CT ABDOMEN: Liver: There is mild fatty infiltration of liver. Spleen: Normal Pancreas: Normal Adrenal glands: The adrenal glands are normal. Gallbladder: Gallbladder is surgically absent. Kidneys: No masses are evident. No hydronephrosis is present. No cysts are present. Delayed images were obtained through the kidneys, which remain unremarkable. Aorta: Vascular calcification is within the aorta. Inferior vena cava: Normal. CT PELVIS: Loops of bowel within the abdomen and pelvis are normal. The study is performed without oral cont rast limiting bowel evaluation. Appendix: Normal as visualized. Urinary bladder: Tiny amount of air is present which can be related to recent instrumentation. Genitourinary structures: Uterus and ovaries are not identified. Osseous structures: No suspicious lytic or sclerotic lesions. Facet degenerative changes are present. Degenerative disc changes are within the lumbar spine IMPRESSIONS: 1. No suspicious abnormality to account for flank pain. 2. Mild fatty infiltration liver.
[2020-05-18] MEDS ORDERED: KETOROLAC 30 MG/ML 1 ML VIAL IVP STA (21:30)
[2020-05-18] MEDS ORDERED: diazePAM 5 MG TAB PO STA (21:31)
[2020-05-18 21:34] VITALS: BP 151/74; PULSE 78; RESP 18
[2020-05-18] MEDS ORDERED: ACET/COD 300 MG/30 MG STARTER PACK 6 TAB BTL PO STA (22:09)
[2020-05-18 22:20] LABS: Appearance,Urine Clear (Clear); Bilirubin,Urine 1+ (Negative); Blood,Urine Negative (Negative); Color,Urine Yellow; Glucose,Urine (UA) Negative (Negative); Ketones,Urine Negative (Negative); Leukocyte Esterase,Urine Negative (Negative); Nitrite,Urine Negative (Negative); Protein,Urine Negative (Negative); Urobilinogen,Urine <2.0 mg/dL (<2.0)
[2020-05-18 22:36] LABS: Specific Gravity,Urine 1.049 (1.001-1.035)
== END 2020-05-18 22:38 | disposition home or self-care (01) ==
LOC: EC 17:56
DX: M62.830 Muscle spasm of back (principal); R10.814 Left lower quadrant abdominal tenderness; I10 Essential (primary) hypertension; E78.5 Hyperlipidemia, unspecified; F32.9 Major depressive disorder, single episode, unspecified; Z85.118 Personal history of other malignant neoplasm of bronchus and lung; Z85.42 Personal history of malignant neoplasm of other parts of uterus; Z79.899 Other long term (current) drug therapy
CPT/HCPCS: 36415; 80053; 82150; 83605; 83690; 85025; 81003; 74177; 99284; 96374; 96375 ×2; 96361 ×2; J2405; J1885; J1170; Q9967

== ENCOUNTER → 2020-07-10 | Outpatient (CLI) | payer OTHER ==
--- NOTE | 2020-07-10 10:04 | MR ---
EXAMINATION TYPE: MR lumbar spine wo/w con DATE OF EXAM: 07/10/2020 COMPARISON: CT 06/08/2019 HISTORY: Spondylosis, Scoliosis. History of endometrial carcinoma. TECHNIQUE: Multiplanar, multisequence images of the lumbar spine were acquired. Spinal alignment is normal. Vertebral body heights are preserved. Vertebral bone marrow is normal in signal. There is an L3 vertebral body hemangioma. Degenerative endplate changes of L2, L3, and L4, wi th small areas of postcontrast enhancement adjacent to Schmorl's nodes and endplate irregularity whic h are likely degenerative. No suspicious postcontrast enhancement. Multilevel degenerative disc disease, as described by level below. There is diffuse facet arthropathy . Lower thoracic cord is normal in signal. Conus terminates normally at L2. Cauda equina nerve roots are normal in course and caliber. Paraspinal soft tissues are unremarkable. T12-L1: Mild posterior disc bulge effaces the ventral aspect of the thecal sac. No canal stenosis. Fo ramina are patent bilaterally. L1-L2: Moderate circumferential disc bulge with mild superimposed right paracentral disc protrusion w hich indents the ventral aspect of the thecal sac. No canal stenosis. Foramina are patent bilaterally . L2-L3: Severe circumferential disc bulge, facet arthropathy, and ligament flavum hypertrophy. Moderat e to severe canal stenosis. Foramina are patent bilaterally. L3-L4: Severe circumferential disc bulge, facet arthropathy, and ligament hypertrophy. Moderate canal stenosis. Moderate right neural foramina narrowing. L4-L5: Moderate circumferential disc bulge, facet arthropathy, ligamentum flavum hypertrophy. Moderat e canal stenosis. Foramina are moderately narrowed bilaterally. L5-S1: Mild circumferential disc bulge, facet arthropathy. No Canal stenosis. Moderate right and flakita re left neural foramina narrowing. IMPRESSION: Degenerative disc disease and facet arthropathy contribute to varying degrees of neural foramina narr owing and canal stenosis. There is moderate to severe canal stenosis at L2-L3, and moderate canal andreas nosis at L3-L4 and L4-L5.
== END | disposition home or self-care (01) ==
LOC: RADMRIMAIN 08:09
PROVIDERS: ATTEND Physical Medicine & Rehabilitation
DX: M48.061 Spinal stenosis, lumbar region without neurogenic claudication (principal); M51.36 Other intervertebral disc degeneration, lumbar region; M47.816 Spondylosis without myelopathy or radiculopathy, lumbar region
CPT/HCPCS: 72158; A9585

== ENCOUNTER → 2020-10-13 | Outpatient (CLI) | payer OTHER ==
--- NOTE | 2020-10-13 11:56 | CT ---
EXAMINATION TYPE: CT chest wo con DATE OF EXAM: 10/13/2020 COMPARISON: Chest CT April 30, 2020 and older CTs HISTORY: malignant neoplasm of endometrium CT DLP: 605.9 mGycm. Automated Exposure Control for Dose Reduction was Utilized. TECHNIQUE: CT scan of the thorax is performed without IV contrast. FINDINGS: LUNGS: Lung volumes redemonstrated. Mild to moderate right greater than left bibasilar linear scarrin g and/or atelectasis again seen. Right basilar partial pneumonectomy changes medial lower lung redemo nstrated. No new greater than 4 mm nodules or masses bilaterally. Tiny nodular scarring anteromedial right mid lung axial image 24 redemonstrated and stable. No pleural effusion or pneumothorax seen bilaterally. MEDIASTINUM: Lack of IV contrast is noted to limit evaluation for mediastinal and especially hilar ad enopathy. There are no definitive new or enlarging greater than 1 cm hilar or mediastinal lymph nodes . No cardiomegaly or pericardial effusion is seen. Coronary artery calcification redemonstrated. OTHER: The liver remains low dense consistent with diffuse fatty infiltration. Cholecystectomy clips are redemonstrated. Underlying scoliotic curvature with mild to moderate multilevel spurring of the s pine redemonstrated. Right posterior mid rib partial resection redemonstrated. IMPRESSION: Posttreatment changes to right lung redemonstrated. No new or enlarging nodules or adenop athy identified.
== END | disposition home or self-care (01) ==
LOC: RADCTMAIN 10:55
PROVIDERS: ATTEND Internal Medicine Hematology & Oncology
DX: C54.1 Malignant neoplasm of endometrium (principal); Z90.2 Acquired absence of lung [part of]
CPT/HCPCS: 71250

== ENCOUNTER → 2021-04-19 | Outpatient (CLI) | payer OTHER ==
--- NOTE | 2021-04-20 08:59 | CT ---
EXAMINATION TYPE: CT chest w con DATE OF EXAM: 04/19/2021 COMPARISON: 10/13/2020, 04/30/2020, 10/31/2017 HISTORY: 65-year-old female J98.4, Follow up for pulmonary nodule. C54.1, endometrial carcinoma. TECHNIQUE: Contiguous axial scanning of the chest after the administration of 100ml mL of Isovue 300. Coronal/sagittal reconstructions performed. CT DLP: 459.5mGycm. Automatic exposure control utilized for a dose reduction. FINDINGS: Heart upper limits of normal in size without pericardial effusion. Ectatic ascending aorta at 3.8 cm. Conventional arch was a branching anatomy. No thoracic lymphadenopathy by CT size criteria. Redemonstrated prior thoracotomy change along the posterior right midlung with some stable herniating chest wall fact into the subpleural region. Strandy opacities in the right lower lung suggestive of postsurgical change and scarring especially g iven surgical material near. Mixed soft tissue and fat density elongated area along the right infrahilar region has shown gradual decrease in size now measuring 2.6 x 1.5 cm versus 2.7 x 2.0 cm on 10/13/2020 and 3.7 x 2.0 cm on 04/30. A couple small pulmonary nodules in the anterior medial right middle lobe measuring up to 6 mm versus 5 mm on 10/13/2020 and 3 mm on 04/30/2020. A new 6 mm anterior right upper lobe pulmonary nodule, axial image 13 warrants close surveillance. Strandy atelectasis at the left base. No consolidation or pleural effusion. Tiny hiatal hernia. Visualized upper abdomen otherwise shows no gross abnormality. Bones: Previous right-sided thoracotomy change. No osseous destructive process. Some bridging anter ior and lower thoracic spine. IMPRESSION: 1. Postsurgical and posttreatment change at the right infrahilar region and right lower lung is overa ll unchanged. The more focal density in the right infrahilar region shows continued gradual decrease in size. 2. However, a couple areas warrant continued surveillance. Particularly, a new 6 mm right upper lobe pulmonary nodule. A new metastatic or primary neoplastic pulmonary nodule are both possibilities at t his time. The other 2 nodules measure 6 mm and less in the right middle lobe and measured 3 mm back o n 04/30/2020.
== END ==
LOC: RADCTMAIN 18:51
PROVIDERS: ATTEND Internal Medicine Hematology & Oncology
DX: C54.1 Malignant neoplasm of endometrium (principal); R91.1 Solitary pulmonary nodule; R91.8 Other nonspecific abnormal finding of lung field
CPT/HCPCS: 71260; Q9967

== ENCOUNTER → 2021-04-26 | Outpatient (CLI) | payer OTHER ==
--- NOTE | 2021-04-26 13:05 | P.PAINCN ---
History of Present Illness - Reason for Consult Consult date: 04/26/21 - History of Present Illness This is 66 years old female with a chronic history of severe low back pain for more than 10 years, and she is diagnosed with lumbar degenerative disc disease and lumbar spondylosis with lumbar facet arthropathy, patient done physical therapy for a few months ,and she had minimal improvement and she tried several different treatment with the medication youngster anti-inflammatory medication a nd pain medication Ultram and Neurontin, she continued to have severe low back pain, patient had diagnostic medial branch block done at [facility] by Dr. Pabon, on 2 different occasions and she got excellent pain relief than 90% improvement of her low back pain, and she was referred to [facility] pain clinic for RFA of the medial branch lumbar area, also patient complaining of severe right-sided chest wall pain, it's constant and increases with any chest wall movement, radiated from the posterior chest wall to the anterior part of the chest wall, this pain started after she had thoracotomy surgery Past Medical History Past Medical History: Hyperlipidemia, Hypertension Additional Past Medical History / Comment(s): HX lung and endometrial CANCER. HAD DVT LT LEG THAT TURNED INTO PE AT AGE 23. BORDERLINE DIABETIC-NO MEDS. chronic back pain History of Any Multi-Drug Resistant Organisms: None Reported Past Surgical History: Cholecystectomy, Hysterectomy, Orthopedic Surgery Additional Past Surgical History / Comment(s): RT KNEE SX. LT KNEE SX-NO KNEE CAP. COLONOSOCPY. LUNG SX 4/5TH OF RT LOWER LUNG REMOVED R/T CANCER Past Anesthesia/Blood Transfusion Reactions: No Reported Reaction Past Psychological History: Anxiety, Depression Smoking Status: Never smoker Past Alcohol Use History: Occasional Past Drug Use History: None Reported - Past Family History Mother History Unknown: Yes Additional Family Medical History / Comment(s): PT ADOPTED-FAMILY HHX UNKNOWN Medications and Allergies Home Medications Medication Instructions Recorded Confirmed Type Cholecalciferol [Vitamin D3] 2,000 unit PO DAILY 04/06/17 05/18/20 History Cinnamon Bark [Cinnamon] 1,000 mg PO BID 04/06/17 05/18/20 History Etodolac 500 mg PO BID 04/06/17 05/18/20 History Sertraline [Zoloft] 100 mg PO QAM 04/06/17 05/18/20 History Simvastatin 40 mg PO HS 04/06/17 05/18/20 History Triamterene/Hydrochlorothiazid 1 each PO DAILY 04/06/17 05/18/20 History [Triamterene-Hctz 37.5-25 mg Tb] Vitamin B Complex 1 each PO DAILY 04/06/17 05/18/20 History Gabapentin [Neurontin] 100 mg PO TID 07/08/19 05/18/20 History traMADol HCL 50 mg PO BID 04/26/21 04/26/21 History Allergies Allergy/AdvReac Type Severity Reaction Status Date / Time No Known Allergies Allergy Verified 05/18/20 22:14 Physical Exam Vitals: Intake and Output 04/25/21 04/26/21 04/26/21 22:59 06:59 14:59 Other: Weight 108.862 kg Physical Examinations : -Constitutiona : Cooperative , not in acute distress . -HEENT : nech : supple , no Lymphadenopathy , normal thyroid size . : eyes : no ptosis , no icterus, no photophobia . - neurologic : Cranial nerve II to XII intact , no focal neurological deffecit . -psychatric : alert , oriented X 3 , appropriate affect , intact judgment and insight . -Lymphatic : no Lymphadenopathy . - musculoskeltal : Thoracic Spine : Severe tenderness over the posterior aspect of the thoracic spine around T7 to T9 around the area of the incision/scar Incision healed appropriately, positive anadenia positive dysesthesia Lumber spine moter stegnth lower extremities ,thigh and legs 4/5 Right side , 5/5 Left side deep tendon reflexes : normal Knee Jerk , normal ankle Jerk lumber facet Loading Test =positive Right , positive Left Range of motion of the lumbar spine Flexion 30 degrees, extension 10 degrees strait leg raising test = positive at 30 degree Fabere test= positive Right , and positive LT . Sever tenderness over the Sacroiliac joint on the Right , and Left sides Results Comments: MRI of the lumbar spine multilevel lumbar degenerative disc disease multilevel lumbar spondylosis with facet arthropathy Assessment and Plan Plan: Assessment and plan=1-lumbar spondylosis with lumbar facet arthropathy without myelopathy. 2-lumbar degenerative disc disease. 3-intercostal neuralgia/ right-sided chest wall pain Patient had diagnostic medial branch block lumbar area x2 done by Dr. Pabon at [facility], ,she would be good candidate to have RFA of the medial branch lumbar area at L3 , L4, L5 In the future after we finished treatment for her low back we can do diagnostic intercostal nerve block and possible RFA of the intercostal nerve Time with Patient: Greater than 30 PQRS Measure Charge Sheet Measure #130: Documentation of Current Meds in Medical Chart: Patient's medications documented in chart Measure #226: Tobacco Use: Screen & Cessation Intervention: Pt not a tobacco user Measure #111: Pneumonia Vaccination: Pneumococcal vaccine administered or previously received Measure #47: Advance Care Plan: Advance care planning discussed & documented, pt chose/unable to give Measure #412: Opioid Treatment Agreement: No documentation of signed opioid treatment agreement Measure #408: Opioid Therapy Follow-up Evaluation: Patient had NO f/u eval minimum every 3 months during opioid therapy Measure #317: Preventitive Care & Scrn High Bld Press & F/U: Normal blood pressure, f/u not required Measure #128: Body Mass Index (BMI) Screening & Follow-up: BMI documented ABOVE normal parameters - f/u documented Measure #131: Pain Assessment & Follow-up: Pain positive & plan documented, Follow-up scheduled Measure #431: Unhealthy Alcohol Use Preventative Care & Scrn: Patient not identified as an unhealthy alcohol user PQRS Narrative: Smoking Status Never smoker Home Medications: Ambulatory Orders Cholecalciferol [Vitamin D3] 2,000 unit PO DAILY 04/06/17 Cinnamon Bark [Cinnamon] 1,000 mg PO BID 04/06/17 Etodolac 500 mg PO BID 04/06/17 Sertraline [Zoloft] 100 mg PO QAM 04/06/17 Simvastatin 40 mg PO HS 04/06/17 Triamterene/Hydrochlorothiazid [Triamterene-Hctz 37.5-25 mg Tb] 1 each PO DAILY 04/06/17 Vitamin B Complex 1 each PO DAILY 04/06/17 Gabapentin [Neurontin] 100 mg PO TID 07/08/19 traMADol HCL 50 mg PO BID 04/26/21
== END ==
CPT/HCPCS: 99212

== ENCOUNTER 2021-05-21 09:49 | Day surgery (SDC) | payer OTHER ==
[2021-05-20 10:27] VITALS: BMI 36.5
[2021-05-21 10:07] VITALS: TEMP 97
[2021-05-21] MEDS ORDERED: LACTATED RINGERS 1,000 ML IV ONE (10:07)
[2021-05-21 10:10] LABS: Glucose,Whole Blood 129 mg/dL (75-99)
[2021-05-21] MEDS ORDERED: MIDAZOLAM 2 MG/2 ML VIAL ONE (10:14)
[2021-05-21] MEDS ORDERED: fentaNYL (PF) 50 MCG/ML 2 ML AMP ONE (10:14)
[2021-05-21] MEDS ORDERED: ROPIVACAINE 5MG/ML 20ML VIAL ONE (10:15)
[2021-05-21] MEDS ORDERED: LIDOCAINE 1% INJ 10MG/ML (20 ML MDV) ONE (10:15)
[2021-05-21] MEDS ORDERED: IV FLUID CONTINUATION 1,000 ML IV ONE (10:52)
[2021-05-21 10:55] VITALS: RESP 12
--- NOTE | 2021-05-21 11:07 | FL ---
EXAMINATION TYPE: FL guided pain mgmt statistic DATE OF EXAM: 05/21/2021 FLUOROSCOPY Fluoroscopy time of 30 seconds was used during lumbar radiofrequency ablation for pain management. 6 image/s document/s the procedure.
[2021-05-21 11:08] VITALS: BP 134/78; PULSE 73
--- NOTE | 2021-06-16 15:37 | P.PCN ---
Date of Procedure: 05/21/21 Description of Procedure: PREOPERATIVE DIAGNOSIS: Lumbar Spondylosis POSTOPERATIVE DIAGNOSIS: Same PROCEDURES: Radiofrequency ablation of the L3, L4, L5 medial branches with fluoroscopic guidance bilaterally SURGEON: Slava Carlos MD. ANESTHESIA: Lidocaine 1% 5 mL, Monitored anesthesia care with anesthesia team EBL: Minimal Fluoroscopy was used for the procedure and images were saved in the radiology portion of the chart. PROCEDURE INDICATION: The patient with low back pain secondary to lumbar facet arthropathy who had more than 50% relief of pain with previous diagnostic lumbar medial branch block X2. PROCEDURE DESCRIPTION / TECHNIQUE: The patient was seen and identified in the preoperative area. Risks, benefits, complications, including but not limited to risk of infection ,bleeding , allergic reactions to the medications and incomplete pain relief , and alternatives were discussed with the patient, the patient agreed to proceed with the procedure and signed the consent. IV was started. The operative site was marked. Patient was taken to the OR and time out was completed. The patient was placed in the prone position on the procedure table. The lumbar area was prepped and draped in the usual sterile fashion. . Vital signs were closely monitored during the procedure .IV sedation was used during the procedure to decrease patients anxiety. Using AP and then oblique fluoroscopy, the "eye of the Yemi dog" corresponding to the connection between the superior and transverse articular processes of the L4 and L5 as well as the sacral ala were identified, marked, and localized with 1% lidocaine. Subsequently, an 18 guage 100 mm radiofrequency cannula with a 10-mm active tip was advanced guided by fluoroscopy to the identified target at each site. Needle positioning was confirmed on AP, oblique and lateral fluoroscopy. Motor testing at 2.5 Hz was done with paraspinal muscle stimulation only, and no radicular symptoms down the legs. Then 1 mL 0.5% ropivacaine was injected in each site. Radiofrequency thermocoagulation at 80 degrees celsius for 90 seconds was then performed. [place] were removed. Sterile dressings were applied. COMPLICATIONS: No acute complications. DISPOSITION / PLANS: The patient was placed in a supine position and transferred to the recovery area in a stable condition for observation and was discharged from the recovery room after meeting discharge criteria. Home discharge instructions given to the patient by the staff. The patient will follow up in clinic in 4 weeks.
== END 2021-05-21 11:21 | disposition home or self-care (01) ==
LOC: ORPAIN 09:49
PROVIDERS: ATTEND Anesthesiology
DX: M47.816 Spondylosis without myelopathy or radiculopathy, lumbar region (principal); I10 Essential (primary) hypertension; E78.5 Hyperlipidemia, unspecified; Z85.118 Personal history of other malignant neoplasm of bronchus and lung; E11.9 Type 2 diabetes mellitus without complications; Z79.891 Long term (current) use of opiate analgesic; Z79.899 Other long term (current) drug therapy
CPT/HCPCS: 64635; 64636; J2250; J2001; J3010; J2795

== ENCOUNTER → 2021-06-14 | Outpatient (CLI) | payer OTHER ==
[2021-06-14 08:33] VITALS: BP 141/67; PULSE 90; RESP 18; TEMP 98.3
--- NOTE | 2021-06-14 08:42 | P.PN ---
Subjective Progress Note Date: 06/14/21 This is follow up visit for this 66 years old female with a chronic history of severe low back pain for more than 10 years, and she is diagnosed with lumbar degenerative disc disease and lumbar spondylosis with lumbar facet arthropathy, patient done physical therapy for a few months ,and she had minimal improvement and she tried several different treatment with the medication youngster anti- inflammatory medication and pain medication Ultram and Neurontin, she continued to have severe low back pain, patient had diagnostic medial branch block done at [facility] by Dr. 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 -HEENT : nech : supple , no Lymphadenopathy , normal thyroid size . : eyes : no ptosis , no icterus, no photophobia . - neurologic : Cranial nerve II to XII intact , no focal neurological deffecit . -psychatric : alert , oriented X 3 , appropriate affect , intact judgment and insight . -Lymphatic : no Lymphadenopathy . - musculoskeltal : Thoracic Spine : Severe tenderness over the posterior aspect of the thoracic spine around T6 to T8 around the area of the incision/scar Incision healed appropriately, positive anadenia positive dysesthesia Lumber spine moter stegnth lower extremities ,thigh and legs 4/5 Right side , 5/5 Left side deep tendon reflexes : normal Knee Jerk , normal ankle Jerk lumber facet Loading Test =positive Right , positive Left Range of motion of the lumbar spine Flexion 30 degrees, extension 10 degrees strait leg raising test = positive at 30 degree Fabere test= positive Right , and positive LT . Sever tenderness over the Sacroiliac joint on the Right , and Left sides Results Comments: MRI of the lumbar spine multilevel lumbar degenerative disc disease multilevel lumbar spondylosis with facet arthropathy Assessment and Plan Plan: Assessment and plan=1-lumbar spondylosis with lumbar facet arthropathy without myelopathy. 2-lumbar degenerative disc disease. 3-intercostal neuralgia/ right-sided chest wall pain Patient will be good candidate to have diagnost ic intercostal nerve block Right T5,T6 ,T7 ,T8 ,and possible RFA of the intercostal nerve PQRS Measure Charge Sheet Measure #130: Documentation of Current Meds in Medical Chart: Patient's medications documented in chart Measure #226: Tobacco Use: Screen & Cessation Intervention: Pt not a tobacco user Measure #111: Pneumonia Vaccination: Pneumococcal vaccine administered or previously received Measure #47: Advance Care Plan: Advance care planning discussed & documented, pt chose/unable to give Measure #412: Opioid Treatment Agreement: No documentation of signed opioid treatment agreement Measure #408: Opioid Therapy Follow-up Evaluation: Patient had NO f/u eval minimum every 3 months during opioid therapy Measure #317: Preventitive Care & Scrn High Bld Press & F/U: Normal blood pressure, f/u not required Measure #128: Body Mass Index (BMI) Screening & Follow-up: BMI documented ABOVE normal parameters - f/u documented Measure #131: Pain Assessment & Follow-up: Pain positive & plan documented, Follow-up scheduled Measure #431: Unhealthy Alcohol Use Preventative Care & Scrn: Patient not iden tified as an unhealthy alcohol user PQRS Narrative: Objective - Vital Signs Vital signs: Vital Signs Temp 98.3 F 06/14/21 08:28 Pulse 90 06/14/21 08:28 Resp 18 06/14/21 08:28 BP 141/67 06/14/21 08:28 Pulse Ox 97 06/14/21 08:28
== END ==
LOC: PNWHC3 08:16
PROVIDERS: ATTEND Specialist
DX: M47.816 Spondylosis without myelopathy or radiculopathy, lumbar region (principal); M51.36 Other intervertebral disc degeneration, lumbar region
CPT/HCPCS: 99211

== ENCOUNTER 2021-07-08 13:09 | Day surgery (SDC) | payer OTHER ==
[2021-07-05 11:30] VITALS: BMI 35.7
[2021-07-08 13:37] VITALS: TEMP 99.2
[2021-07-08] MEDS ORDERED: LACTATED RINGERS 1,000 ML IV ONE (13:37)
[2021-07-08] MEDS ORDERED: MIDAZOLAM 2 MG/2 ML VIAL ONE (13:44)
[2021-07-08] MEDS ORDERED: ROPIVACAINE 5MG/ML 20ML VIAL ONE (13:44)
[2021-07-08] MEDS ORDERED: TRIAMCINOLONE ACETONIDE 40 MG/ML 1 ML VIAL ONE (13:44)
[2021-07-08] MEDS ORDERED: fentaNYL (PF) 50 MCG/ML 2 ML AMP ONE (13:44)
--- NOTE | 2021-07-08 14:05 | P.PCN ---
Date of Procedure: 07/08/21 Description of Procedure: Intercostal Nerve Block Attending: Slava Carlos MD. PREOPERATIVE DIAGNOSIS: Intercostal neuralgia on the right side POSTOPERATIVE DIAGNOSIS: Same OPERATION PERFORMED: right Sided Intercostal Nerve Block at the T5 T6 T7 T8 IV SEDATION with Versed and fentanyl, sedation time 16 min Fluoroscopy was used for the procedure and images saved to patient's chart. Ultrasound was also used for the procedure and images saved to the patient's chart. PROCEDURE AND FINDINGS: The patient was greeted in the pre procedure holding area. The risk, benefits and alternatives to the procedure were again reviewed with the patient and written informed consent was placed in the chart. Prior to the procedure a time out was completed, verifying correct patient, procedure, site, positioning, and implants and/or special equipment. An IV line was placed. A 500 mL bag of NS was connected to the patient. The patient was taken to the procedure room and positioned prone on the fluoroscopy table. Routine monitors were applied including EKG leads, blood pressure cuff, and pulse oximetry. The area of subcutaneous tissue on the [] side(s) overlying the T[] levels was identified. The patient was prepped and draped in the usual sterile fashion. At this point, a radiopaque pointer was used to count all ribs corresponding to this level. Coming down from the 1st thoracic level the proper ribs were identified. The vertebral bodies were marked, and a point in the inferior margin of the corresponding ribs were identified and marked approximately 6 centimeters lateral to midline. At this point, the subcutaneous tissue and the skin was anesthetized using about 3 cc of 1% lidocaine at each level. This was accomplished with a 1-1/2 inch 25-gauge needle. Then, a 21-gauge [place] 50 mm needle was used and Os was contacted in each case and the tissue infiltration was done under live ultrasound guidance. The tip of the needle was walked off the inferior aspect of the rib and at that point, 10 milligrams of Kenalog was injected with 1-1.5 cc of ropivacaine 0.5% at each level. A total of 40 mg of Kenalog was used for the procedure. The needle was flushed and removed. The patient tolerated the procedure well. Patient was hemodynamically stable throughout and had no difficulty with respiration or coughing or shortness of breath. The patient was taken to the recovery room where they were monitored for a brief period of time. Patient tolerated the procedure well and were discharged home in stable condition with post procedural instructions. The patient had no questions prior to discharge. Patient was instructed to go to the emergency room should they develop sudden shortness of breath, coughing or difficulty with breathing. The patient will follow up in clinic in 4 weeks. Complications: none
[2021-07-08] MEDS ORDERED: IV FLUID CONTINUATION 600 ML IV ONE (14:14)
[2021-07-08 14:44] VITALS: BP 145/80; PULSE 68; RESP 20
--- NOTE | 2021-07-08 14:57 | FL ---
Fluoroscopy HISTORY: Pain 8 seconds fluoroscopy time supplied to the referring clinician. 5 intraoperative C-arm images docume nt the procedure. See dictated report from anesthesia.
== END 2021-07-08 14:44 | disposition home or self-care (01) ==
LOC: ORPAIN 13:09
PROVIDERS: ATTEND Anesthesiology
DX: G58.0 Intercostal neuropathy (principal)
CPT/HCPCS: 64420; 76000; J2250; J3301; J3010; J2795; 99152

== ENCOUNTER → 2021-07-15 | Outpatient (CLI) | payer OTHER ==
--- NOTE | 2021-07-15 10:17 | CT ---
EXAMINATION TYPE: CT chest wo con DATE OF EXAM: 07/15/2021 COMPARISON: NONE prior chest CT April 19, 2021 and older CTs HISTORY: Pulmonary nodules, history of endometrial cancer. CT DLP: 605.6 mGycm. Automated Exposure Control for Dose Reduction was Utilized. TECHNIQUE: CT scan of the thorax is performed without IV contrast. FINDINGS: LUNGS: Low lung volumes are redemonstrated. Persistent mild right greater than left bibasilar linear scarring and/or atelectasis is again seen. Right medial lower lung partial pneumonectomy changes are redemonstrated. No new greater than 4 mm nodules or masses bilaterally. There is 7 x 6 mm nodule righ t upper lung axial image 11 is not significantly changed from most recent CT. Stable 4 to 5 mm anteri or right mid lung nodule sagittal image 49. No new nodules clearly seen. No pleural effusion or pneu mothorax seen bilaterally. MEDIASTINUM: Lack of IV contrast is noted to limit evaluation for mediastinal and especially hilar ad enopathy. There are no definitive new greater than 1 cm mediastinal lymph nodes. Heart size stable an d upper limits of normal. Trace Pericardial effusion is currently seen. Coronary artery calcification redemonstrated. OTHER: Cholecystectomy clips are redemonstrated. IMPRESSION: Persistent but stable 6 mm right upper lung nodule from most recent CT. No new or enlargi ng nodules.
== END | disposition home or self-care (01) ==
LOC: RADCTMAIN 09:29
PROVIDERS: ATTEND Internal Medicine Hematology & Oncology
DX: R91.1 Solitary pulmonary nodule (principal); Z85.42 Personal history of malignant neoplasm of other parts of uterus
CPT/HCPCS: 71250

== ENCOUNTER → 2021-08-09 | Outpatient (CLI) | payer OTHER ==
[2021-08-09 14:47] VITALS: BP 130/69; PULSE 87; RESP 18; TEMP 98.3
--- NOTE | 2021-08-09 15:00 | P.PN ---
Subjective Progress Note Date: 08/09/21 This is follow up visit for this 66 years old female with a chronic history of severe low back pain for more than 10 years, and she is diagnosed with lumbar degenerative disc disease and lumbar spondylosis with lumbar facet arthropathy, patient done physical therapy for a few months ,and she had minimal improvement and she tried several different treatment with the medication youngster anti- inflammatory medication and pain medication Ultram and Neurontin, she continued to have severe low back pain, patient had diagnostic medial branch block done at [facility] by Dr. Pabon, on 2 different occasions and she got excellent pain relief than 90% improvement of her low back pain, and recently we did RFA of the medial branch lumbar area, and she reported that she had 90% improvement of her low back pain, now she is complaining of severe right-sided chest wall pain, it's constant and increases with any chest wall movement, radiated from the posterior chest wall to the anterior part of the chest wall, this pain started after she had thoracotomy surgery, which was done a few years ago(patient had endometrial cancer with metastases to the lung and required her to have right thoracotomy surgery) she continued to have severe right-sided chest wall pain after the surgery, she is using Neurontin 300 mg TID , and she uses it etodolac 500 mg twice a day, and Ultram 50 mg twice a day when necessary, patient already done physical therapy and chiropractors, recently we have done right-sided intercostal nerve block which helped her right-sided chest wall pain significantly, she got almost 100% relief for a few weeks Physical Examinations : -Constitutiona : Cooperative , not in acute distress . -HEENT : nech : supple , no Lymphadenopathy , normal thyroid size . : eyes : no ptosis , no icterus, no photophobia . - neurologic : Cranial nerve II to XII intact , no focal neurological deffecit . -psychatric : alert , oriented X 3 , appropriate affect , intact judgment and insight . -Lymphatic : no Lymphadenopathy . - musculoskeltal : Thoracic Spine : Positive tenderness here aspects thoracic spine,+ allodynia, +Dysthesia moter stegnth lower extremities ,thigh and legs 4/5 Right side , 5/5 Left side deep tendon reflexes : normal Knee Jerk , normal ankle Jerk lumber facet Loading Test =positive Right , positive Left Range of motion of the lumbar spine Flexion 30 degrees, extension 10 degrees strait leg raising test = positive at 30 degree Fabere test= positive Right , and positive LT . Sever tenderness over the Sacroiliac joint on the Right , and Left sides Results MRI of the lumbar spine multilevel lumbar degenerative disc disease multilevel lumbar spondylosis with facet arthropathy Assessment and Plan Plan: Assessment and plan=1-lumbar spondylosis with lumbar facet arthropathy without myelopathy. 2-lumbar degenerative disc disease. 3-intercostal neuralgia/ right-sided chest wall pain Patient will be good candidate to have repeate intercostal nerve block Right T5,T6 ,T7 ,T8 (she get 100% relief of her small pain after the first injection ) PQRS Measure Charge Sheet Measure #130: Documentation of Current Meds in Medical Chart: Patient's medications documented in chart Measure #226: Tobacco Use: Screen & Cessation Intervention: Pt not a tobacco user Measure #111: Pneumonia Vaccination: Pneumococcal vaccine administered or previously received Measure #47: Advance Care Plan: Advance care planning discussed & documented, pt chose/unable to give Measure #412: Opioid Treatment Agreement: No documentation of signed opioid treatment agreement Measure #408: Opioid Therapy Follow-up Evaluation: Patient had NO f/u eval minimum every 3 months during opioid therapy Measure #317: Preventitive Care & Scrn High Bld Press & F/U: Normal blood pressure, f/u not required Measure #128: Body Mass Index (BMI) Screening & Follow-up: BMI documented ABOVE normal parameters - f/u documented Measure #131: Pain Assessment & Follow-up: Pain positive & plan documented, Follow-up scheduled Measure #431: Unhealthy Alcohol Use Preventative Care & Scrn: Patient not identified as an unhealthy alcohol user PQRS Narrative: Objective - Vital Signs Vital signs: Vital Signs Temp 98.3 F 08/09/21 14:40 Pulse 87 08/09/21 14:40 Resp 18 08/09/21 14:40 BP 130/69 08/09/21 14:40 Pulse Ox 96 08/09/21 14:40
== END ==
LOC: PNWHC3 14:17
PROVIDERS: ATTEND Specialist
DX: M47.816 Spondylosis without myelopathy or radiculopathy, lumbar region (principal); M51.36 Other intervertebral disc degeneration, lumbar region; R07.89 Other chest pain
CPT/HCPCS: 99211

== ENCOUNTER → 2021-09-09 | Day surgery (SDC) | payer OTHER ==
[~2021-09-09] MED LIST changes: +IOPAMIDOL M200 10 ML VIAL ONE; +IV FLUID CONTINUATION 1,000 ML IV ONE; +LACTATED RINGERS 1,000 ML IV ONE; -LIDOCAINE 1% 20 ML VIAL (10MG/ML) FOR IV START INTRADERMA PRN; +MIDAZOLAM 2 MG/2 ML VIAL ONE; +ROPIVACAINE 5MG/ML 20ML VIAL ONE; +fentaNYL (PF) 50 MCG/ML 2 ML AMP ONE; +methylPREDNISolone ACETATE 40 MG/ML 1 ML VIAL ONE
[2021-09-09 08:07] VITALS: TEMP 97.8
--- NOTE | 2021-09-09 09:00 | P.PCN ---
Date of Procedure: 09/09/21 Procedure(s) Performed: PROCEDURE: right sided T5, T6. T10, T11, T12 Intercostal nerve block under fluoroscopic guidance.( Fluoroscopy images available in the radiology department ) PREOP DIAGNOSIS= 1-: Right Intercostal neuralgia.. 2-right side chest wall pain POSTOP DIAGNOSIS: Same as pre-op Diagnosis. ANESTHESIA: moderate sedations with versed 1 mg ,and Fentanyle 50 mcg . EBL: Minimal COMPLICATION: None. IV FLUIDS: 100 mL of normal saline. PROCEDURE INDICATION: Chronic right-sided thoracic pain secondary to intercostals neuralgia who had more than 100% pain relief from a prior diagnostic block with Bupivacaine. PROCEDURE DESCRIPTION: The patient was seen and identified in the preoperative area. Risks, benefits, complications, and alternatives were discussed with the patient. The patient agreed to proceed with the procedure and signed the consent. IV was started. Vital signs were stable throughout the procedure. The patient was taken to the procedure room and was placed in the prone position on the procedure table. The thoracic area was prepped and draped in the usual sterile fashion. Critical pause was taken. Using anteroposterior fluoroscopy, the T8 (first level) rib on the right was identified. An area approximately 2 inches lateral to the vertebral midline was localized under fluoroscopy. Subsequently, a 25-gauge, 2-inch needle was advanced under fluoroscopy towards the inferior aspect of the rib. After making contact with the rib, the needle w as walked off and carefully slipped inferiorly off the rib. After negative aspiration and with the absence of paresthesias, half ml of Iso View 200 injected and it showed no intravascular spread then after that 1,5 ml then a mixture of ropivacaine 0.5% 6 ml mixed with Depo-Medrol 80 mg and 1-1/2 mL of the mixture injected after negative aspiration . The needle was subsequently removed while being flushed with Ropivacaine 0.5 % ,and the same procedure was repeated at the levels of T7 ,, T6 ,, T5 At the end of the procedure, skin was cleansed, and bandages were applied. Patient denied any shortness of breath after the procedure. Lungs auscultation showed clear and equal air entry bilaterally after the procedure. The patient tolerated the procedure well without complications. Patient was observed in the recovery area ,
[2021-09-09 09:06] VITALS: RESP 16
--- NOTE | 2021-09-09 09:07 | FL ---
EXAMINATION TYPE: FL guided pain mgmt statistic DATE OF EXAM: 09/09/2021 CLINICAL HISTORY: Rib pain. TECHNIQUE: Fluoroscopy. COMPARISON: None. FINDINGS: Fluoroscopic guidance was provided during pain relief procedure performed by Dr. Gomez . A total of 20 seconds of fluoroscopic time was utilized during the procedure and 4 spot images are acquired. Images acquired shows needle localization at several levels with contrast injection just below mid to lower posterior ribs. IMPRESSION: As Above.
[2021-09-09 09:15] VITALS: BP 126/70; PULSE 79
--- NOTE | 2021-09-09 09:25 | XR ---
EXAMINATION TYPE: XR chest 1V portable DATE OF EXAM: 09/09/2021 COMPARISON: Chest CT July 15, 2021. Chest x-ray July 19, 2019 HISTORY: Post rib injections TECHNIQUE: Single AP portable frontal upright view of the chest is obtained. FINDINGS: There is mild scattered chronic parenchymal changes without suspicious focal air space opa city, pleural effusion, or pneumothorax seen. The cardiac silhouette size is stable and upper limits of normal. Partial resection of the posterior right sixth rib is redemonstrated. IMPRESSION: No pneumothorax after recent thoracic pain relief procedure.
== END ==
LOC: ORPAIN 07:52
PROVIDERS: ATTEND Specialist
DX: G89.29 Other chronic pain (principal); G58.8 Other specified mononeuropathies; R07.89 Other chest pain
CPT/HCPCS: 71045; 64420; 64421 ×3; J2250; J1030; J3010; Q9966; J2795; 99152

== ENCOUNTER → 2021-09-27 | Outpatient (CLI) | payer OTHER ==
[2021-09-27 11:21] VITALS: BP 123/67; PULSE 98; RESP 18; TEMP 97.8
--- NOTE | 2021-09-28 17:02 | P.PN ---
Subjective Progress Note Date: 09/27/21 This is follow up visit for this 66 years old female with a chronic history of severe low back pain for more than 10 years, and she is diagnosed with lumbar degenerative disc disease and lumbar spondylosis with lumbar facet arthropathy, previously would have done RFA of the medial branch lumbar area, and she reported that her low back pain improved significantly after the RFA, and later on patient was complaining of right-sided chest wall pain and she was diagnosed with intercostal neuralgia and we have done right-sided intercostal nerve block at T5-/T6/ T7/-T8 2 patient gets excellent relief after each of block and she is currently for that most of her chest wall completely gone and she continued to some back pain , (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 -HEENT : nech : supple , no Lymphadenopathy , normal thyroid size . : eyes : no ptosis , no icterus, no photophobia . - neurologic : Cranial nerve II to XII intact , no focal neurological deffecit . -psychatric : alert , oriented X 3 , appropriate affect , intact judgment and insight . -Lymphatic : no Lymphadenopathy . - musculoskeltal : Results MRI of the lumbar spine multilevel lumbar degenerative disc disease multilevel lumbar spondylosis with facet arthropathy Assessment and plan=1-lumbar spondylosis with lumbar facet arthropathy without myelopathy. 2-lumbar degenerative disc disease. 3-intercostal neuralgia/ right-sided chest wall pain Patient had 100% relief of her right-sided chest wall pain after intercostal nerve block 2 Patient reported that she is currently having some low back pain issues, and she is currently using Ultram 50 mg twice a day when necessary, preescription for Ultram 50 mg twice a day dispense 60 with 1 refill given and patient signed a narcotic agreement , patient used to get p rescription for Ultram from the Dr. Pabon and she does not follow-up with him anymore for this reason we will take over prescription,, and in the future if patient had right-sided chest wall pain she could benefit from RFA of the right side intercostal nerve at T5, T6, T7, T8) - PQRS measures = - Patient's medications are documented in the chart. -Tobacco use is negative and counseling.Given. -Patient's has received pneumococcal vaccine. -Advanced care planning discussed, patient not eligible. -Opiate contract signed. -Pain positive and follow-up visit/procedure is scheduled. -Patient's blood pressure measured [123/67 ] , and documented in the record ,and patient will follow up with the primary care. -Patient's weight was measured and body mass index [ 35 ] above the normal limits and counseling was done. and patient instructed to follow-up with the primary care physician. -Patient was not identified as an unhealthy alcohol user Objective - Vital Signs Vital signs: Vital Signs Temp 97.8 F 09/27/21 11:14 Pulse 98 09/27/21 11:14 Resp 18 09/27/21 11:14 BP 123/67 09/27/21 11:14 Pulse Ox 96 09/27/21 11:14 Intake & Output 09/26/21 09/27/21 09/27/21 18:59 06:59 18:59 Weight 104.326 kg
== END ==
LOC: PNWHC3 11:09
PROVIDERS: ATTEND Specialist
DX: M47.816 Spondylosis without myelopathy or radiculopathy, lumbar region (principal); M51.36 Other intervertebral disc degeneration, lumbar region; R07.89 Other chest pain
CPT/HCPCS: 99211

== ENCOUNTER → 2021-11-15 | Outpatient (CLI) | payer OTHER ==
[2021-11-15 11:29] VITALS: BP 122/58; PULSE 80; RESP 18; TEMP 98
--- NOTE | 2021-11-15 19:04 | P.PN ---
Subjective Progress Note Date: 11/15/21 Principal diagnosis: This is follow-up visit for this patient, a 66 yr old female with a history of severe and chronic low back pain secondary to multilevel lumbar disc bulges, degenerative disc diseases and facet arthropathy presents today for medication refills. As pt already has an opioid agreement with [facility], she would like to refill Tramadol as well as fill her Neurontin. MAPS reviewed and consistent. Pain ranges from a 5-8/10 in intensity within the lower back with sharp, shooting pain towards the lower extremities bilaterally. Pain is provoked by movement. Pain is alleviated with medications, topical essential oils, injections, ice or heat application, routine activity, physical therapy (of which she participated in years ago), chiropractic treatment in Oct, 2021, home exercise stretching regimen and massage (with last treatment in Oct, 2021). Pt wanted to receive a pain injection this week as she is leaving for [place] in 4 days and will be out of town for 8 weeks. As pt could not be scheduled for such procedure timely, medication refills will be in place. MRI of the lumbar spine reviewed with the patient again. Interventional pain procedures completed include Patient is currently on Tramadol 50mg & Neurontin 300mg Patient denies any side effects of the medication(s), denies excessive drowsiness or sleepiness, denies suicidal ideation and reports that the current pain medication is helping to control the pain and improve activities of daily living. Patient denies any motor or sensory deficits. Patient denies any fever or night sweats, denies any change in the bowel movements or urination. Physical Examination: -Constitutional: Cooperative. Not in acute distress . -HEENT: Neck is supple. No lymphadenopathy. No thyromegaly. Normal thyroid size. Eyes: No ptosis , no icterus, no photophobia. ENT: No auditory deficits. Normal oropharynx. No Thrush. - Respiratory: Chest clear to auscultations bilaterally. No wheezing. No rhonchi. - Cardiovascular: Regular rate and rhythm. S1 / S2 , no S3 , no S4. - Gastrointestinal: Abdomen soft no tenderness. Bowel sounds positive in all four quadrants. No organomegaly. - Genitourinary: Deferred. - Neurologic: Cranial nerve II to XII intact. No focal neurological deficits. - Psychatric: Alert & oriented x 3. Matching mood & appropriate affect. Judgment and insight intact. - Lymphatic: No Lymphadenopathy. - Musculoskeletal: Cervical spine: Muscle bulk/ tone/ strength in the bilateral upper extremities normal. Facet loading test cervical area positive. Lumbar spine: Motor bulk/ tone/ strength 5/5 lower extremities , thigh and legs Deep tendon reflexes : Normal Knee Jerk. Normal Ankle Jerk . Lumbar Facet Loading Test positive Supine Straight Leg Raise: positive at 30 degree right side/ left side Reed test: positive right side / left side Range of motion: flexion of the lumbar spine <60 degrees Range of motion: Extension of the lumbar spine <20 degrees Severe tenderness over the Sacroiliac joint: right side / left side Assessment and plan: Chronic low back pain secondary to multilevel lumbar disc bulges, degenerative disc diseases and facet arthropathy MAPS reviewed and consistent Medications refilled: Tramadol 50mg #60 with one refill, Gabapentin 300mg #270 with no refill. Urine for UDS collected Chronic and current use of high-risk medication (Opioids). The patient was counseled about risk of opioid use, psychological risk associated with opioids and was orally counseled to not overuse , divert or sell medications. Pt is to store medication in a safe location. The patient is counseled against driving while using narcotic medications and also not to use alcohol or any illicit recreational drugs. Patient verbalized understanding that the lack of compliance will result in failure to renew narcotic prescription(s) as well as possible discharge from the clinic Diagnoses, prognosis and treatment options including but not limited to physical therapy, surgical interventions, interventional therapies and medication management including narcotics and adjuvant medication were discussed. All patient questions answered MAPS reviewed and it was appropriate. I have spent 31 minutes on patient care today. The time was used to review the medical records including relevant urine studies and Prescription history (MAPs), review of the available imaging, evaluation and examination of the patient, coordination of care with the medical staff and if applicable referring physicians, as well as creation of the medical record Objective - Vital Signs Vital signs: Vital Signs Temp 98 F 11/15/21 11:16 Pulse 80 11/15/21 11:16 Resp 18 11/15/21 11:16 BP 122/58 11/15/21 11:16 Pulse Ox 97 11/15/21 11:16 PQRS Measure Charge Sheet Mode of Arrival: Ambulatory - Pain Location Lower Back Non-Pharmacological Interventions: Chiropractic Treatment, Heat, Home Exercise, Ice, Massage, Physical Therapy, Sitting, Stretching Pharmacological Interventions: Block, Medication, PRN Medication PQRS Narrative: Smoking Status Never smoker Narcotic Agreement Date Signed 09/27/21 Blood Pressure 122/58 Pain Intensity [Lower Back] 5 Scale Used Numeric (1 - 10) Hx Alcohol Use (MH) Yes: occ Home Medications: Ambulatory Orders Cholecalciferol [Vitamin D3] 2,000 unit PO DAILY 04/06/17 Cinnamon Bark [Cinnamon] 1,000 mg PO BID 04/06/17 Etodolac 500 mg PO BID 04/06/17 Sertraline [Zoloft] 100 mg PO QAM 04/06/17 Simvastatin 80 mg PO HS 04/06/17 Triamterene/Hydrochlorothiazid [Triamterene-Hctz 37.5-25 mg Tb] 1 each PO DAILY 04/06/17 Vitamin B Complex 1 each PO DAILY 04/06/17 [place]-3 Fatty Acids/Fish Oil [Fish Oil 1,000 mg Softgel] 1 each PO DAILY 05/20/21 Famotidine [Pepcid AC] 10 mg PO BID 07/22/21 traMADol HCL [Ultram] 50 mg PO BID PRN #60 tab 09/27/21
== END ==
LOC: PNWHC3 09:47
PROVIDERS: ATTEND Physician Assistant Medical
DX: M51.36 Other intervertebral disc degeneration, lumbar region (principal); M47.816 Spondylosis without myelopathy or radiculopathy, lumbar region; G89.29 Other chronic pain; M51.26 Other intervertebral disc displacement, lumbar region; Z79.891 Long term (current) use of opiate analgesic
CPT/HCPCS: 80307; 99211; G0482

== ENCOUNTER → 2022-02-03 | Outpatient (CLI) | payer OTHER ==
--- NOTE | 2022-02-03 13:06 | CT ---
EXAMINATION TYPE: CT chest wo con DATE OF EXAM: 02/03/2022 INDICATION: Lung nodule CT DLP: 538.80 mGy.cm Automated Exposure Control for Dose Reduction was Utilized. TECHNIQUE AND CONTRAST: CT scan of the chest without IV contrast administration. COMPARISON: CT dated 07/15/2021 FINDINGS: Slightly more prominent right apical lung nodule measuring 7 mm compared to 6 mm previously. This nod ule was first appreciated in October 2020 CT scan when it measured 3 mm. In April 2021 CT scan, it me asured about 5 mm. Stable bilateral basal thick pulmonary atelectasis and postsurgical changes. Minim al infiltration is seen at the anterior aspect of the right upper lobe measuring about 4 mm (image #1 4, series 4), attention follow-up. No other definite lung nodule identified. Patent central airways. No pleural effusion. Cardiomegaly w ith coronary and arterial atherosclerotic calcifications. No pericardial effusion. No pathologically enlarged lymph nodes in the chest. Previous cholecystectomy. Stable bone defect at the posterior aspe ct of the right sixth rib likely related to previous surgical intervention. Degenerative changes of t horacic spine. No gross aggressive bone lesion. IMPRESSION: Minimal interval change in the size of the right apical pulmonary nodule as compared to the previous CT scan yet it is slowly growing since October 2020 CT scan as described above. Recommend further PE T scan assessment. Other interval changes and incidental findings as described above.
== END | disposition home or self-care (01) ==
LOC: RADCTMAIN 11:50
PROVIDERS: ATTEND Internal Medicine Hematology & Oncology
DX: R91.1 Solitary pulmonary nodule (principal)
CPT/HCPCS: 71250

== ENCOUNTER → 2022-02-07 | Outpatient (CLI) | payer MEDICARE, OTHER ==
[2022-02-07 11:11] VITALS: BP 145/76; PULSE 73; RESP 18; TEMP 97.9
--- NOTE | 2022-02-07 11:31 | P.PN ---
Subjective Progress Note Date: 02/07/22 Principal diagnosis: A 66 yr old female with a history of severe and chronic low back pain secondary to lumbar degenerative disc diseases and lumbar spondylosis with facet arthropathy presents today for evaluation for lower back pain. Pain level is currently at 9 out of 10 in intensity, constant, achy, sore in the lower aspects of her lumbar spine and tailbone region with radiation of pain down the lower extremities. Pain is provoked by excessive standing, excessive bending or excessive lifting. Pain is alleviated with medications, topicals, injections, ice, heat, chiropractic treatments monthly, massage therapy monthly and rest. Interventional pain procedures completed include bilateral RFA L3 to L5, right intercostal nerve block 2 Patient is currently on tramadol 50 mg #60 from this clinic. Neurontin 300 mg 3 times a day. Patient denies any side effects of the medication(s), denies excessive drowsiness or sleepiness, denies suicidal ideation and reports that the current pain medication is helping to control the pain and improve activities of daily living. Patient denies any motor or sensory deficits. Patient denies any fever or night sweats, denies any change in the bowel movements or urination. Physical Examination: -Constitutional: Cooperative. Not in acute distress . -HEENT: Neck is supple. No lymphadenopathy. No thyromegaly. Normal thyroid size. Eyes: No ptosis , no icterus, no photophobia. ENT: No auditory deficits. Normal oropharynx. No Thrush. - Respiratory: Chest clear to auscultations bilaterally. No wheezing. No rhonchi. - Cardiovascular: Regular rate and rhythm. S1 / S2 , no S3 , no S4. - Gastrointestinal: Abdomen soft no tenderness. Bowel sounds positive in all four quadrants. No organomegaly. - Genitourinary: Deferred. - Neurologic: Cranial nerve II to XII intact. No focal neurological deficits. - Psychatric: Alert & oriented x 3. Matching mood & appropriate affect. Judgment and insight intact. - Lymphatic: No Lymphadenopathy. - Musculoskeletal: Cervical spine: Muscle bulk/ tone/ strength in the bilateral upper extremities normal. Facet loading test cervical area positive. Lumbar spine: Motor bulk/ tone/ strength lower extremities , thigh and legs : 5/5 Deep tendon reflexes : Normal Knee Jerk. Normal Ankle Jerk . Vertebral body tenderness to palpation over L5 Lumbar Facet Loading Test positive Straight Leg Raise: positive at 30 degrees right side/ left side Gaenslen's Test positive Sacral spine : Severe tenderness over the Sacroiliac joint: right side / left side Range of motion: Flexion of the lumbar spine <60 degrees Range of motion: Extension of the lumbar spine <20 degrees Gaenslen's Test positive Reed test: positive right side / left side Assessment and plan: Chronic low back pain secondary to lumbar degenerative disc disease , lumbar spondylosis with facet arthropathy without myelopathy Recommendation of LESI L5- S1. May need a series of injections, up to 3 within a six-month period, to obtain optimal pain relief. Risks, benefits of procedure discussed and patient verbalized understanding. Denies anticoagulants use. Denies medical history of diabetes. Chronic and current use of high-risk medication (Opioids). The patient was counseled about risk of opioid use, psychological risk associated with opioids and was orally counseled to not overuse , divert or sell medications. Pt is to store medication in a safe location. The patient is counseled against driving while using narcotic medications and also not to use alcohol or any illicit recreational drugs. Patient verbalized understanding that the lack of compliance will result in failure to renew narcotic prescription(s) as well as possible discharge from the clinic Diagnoses, prognosis and treatment options including but not limited to physical therapy, surgical interventions, interventional therapies and medication management including narcotics and adjuvant medication were discussed. All patient questions answered MAPS reviewed and it was appropriate. UDS from 11/2021 reviewed and consistent. Prescription refill for tramadol 50 mg #60 with 1 refill I have spent 31 minutes on patient care today. Dr Gomez was available by phone for the evaluation of this patient. The time was used to review the medical records including relevant urine studies and Prescription history (MAPs), review of the available imaging, evaluation and examination of the patient, coordination of care with the medical staff and if applicable referring physicians, as well as creation of the medical record Objective - Vital Signs Vital signs: Vital Signs Temp 97.9 F 02/07/22 10:57 Pulse 73 02/07/22 10:57 Resp 18 02/07/22 10:57 BP 145/76 02/07/22 10:57 Pulse Ox 97 02/07/22 10:57 PQRS Measure Charge Sheet Mode of Arrival: Ambulatory - Pain Location Bilateral Lower Back Non-Pharmacological Interventions: Chiropractic Treatment, Heat, Ice, Massage, Position/Reposition Pharmacological Interventions: Block, PRN Medication, Topical Medication PQRS Narrative: Smoking Status Never smoker Narcotic Agreement Date Signed 09/27/21 Blood Pressure 145/76 Pain Intensity [Bilateral 9 Lower Back] Scale Used Numeric (1 - 10) Hx Alcohol Use (MH) Yes: occ Home Medications: Ambulatory Orders Cholecalciferol [Vitamin D3] 2,000 unit PO DAILY 04/06/17 Cinnamon Bark [Cinnamon] 1,000 mg PO BID 04/06/17 Etodolac 500 mg PO BID 04/06/17 Sertraline [Zoloft] 100 mg PO QAM 04/06/17 Simvastatin 80 mg PO HS 04/06/17 Triamterene/Hydrochlorothiazid [Triamterene-Hctz 37.5-25 mg Tb] 1 each PO DAILY 04/06/17 Vitamin B Complex 1 each PO DAILY 04/06/17 [place]-3 Fatty Acids/Fish Oil [Fish Oil 1,000 mg Softgel] 1 each PO DAILY 05/20/21 Famotidine [Pepcid AC] 10 mg PO BID 07/22/21 traMADol HCL [Ultram] 50 mg PO BID PRN 30 Days #60 tab 02/07/22
== END ==
LOC: PNWHC3 10:31
PROVIDERS: ATTEND Specialist
DX: G89.29 Other chronic pain (principal); M51.36 Other intervertebral disc degeneration, lumbar region; M47.816 Spondylosis without myelopathy or radiculopathy, lumbar region; Z79.891 Long term (current) use of opiate analgesic
CPT/HCPCS: 99211

== ENCOUNTER 2022-03-10 08:28 | Day surgery (SDC) | payer MEDICARE ==
[2022-03-10] MEDS ORDERED: LACTATED RINGERS 1,000 ML IV ONE (08:58)
[2022-03-10 08:59] VITALS: TEMP 96.8
[2022-03-10] MEDS ORDERED: fentaNYL (PF) 50 MCG/ML 2 ML AMP ONE (09:00)
[2022-03-10] MEDS ORDERED: IOPAMIDOL M200 10 ML VIAL ONE (09:00)
[2022-03-10] MEDS ORDERED: methylPREDNISolone ACETATE 40 MG/ML 1 ML VIAL ONE (09:00)
[2022-03-10] MEDS ORDERED: MIDAZOLAM 2 MG/2 ML VIAL ONE (09:00)
[2022-03-10 09:01] LABS: Glucose,Whole Blood 140 mg/dL (75-99)
--- NOTE | 2022-03-10 09:14 | P.PCN ---
Date of Procedure: 03/10/22 Description of Procedure: Procedure: 1. L5-S1 Epidural steroid injection under fluoroscopic guidance # 1 , 2. Lumbar epidurogram PREOPERATIVE DIAGNOSIS: Lumbar degenerative disc disease, and Lumbar radiculopathy. POSTOPERATIVE DIAGNOSIS: Lumbar degenerative disc disease, and Lumbar radiculopathy. SURGEON: Bernadette Bonds ANESTHESIA: Local with 1% lidocaine, and IV sedation as per anesthesia record EBL: None. Specimen removed: None Fluoroscopic image: saved to electronic medical records PROCEDURE INDICATION: The patient had history of Lumbar degenerative disc disease and Lumbar radiculopathy. Failed to conservative therapy. Presented for epidural steroid injection. PROCEDURE DESCRIPTION: The patient was seen and identified in the preoperative area. Risks, benefits, complications, and alternatives were discussed with the patient. The patient agreed to proceed with the procedure and signed the consent. IV was started, and vital signs were stable. Patient was taken to the procedure area, and time out was completed. The patient was placed in the prone position on procedure table and a pillow was placed under the abdomen to reduce lumbar lordosis. The lumbosacral area was prepped and draped in the usual sterile fashion. Critical pause was taken. Vital signs were closely monitored during the procedure. Using anterior-posterior fluoroscopy, the L5-S1 interlaminar space was identified, and skin and deeper tissues were localized with 1% lidocaine. Using anterior-posterior fluoroscopy, lateral fluoroscopy, and [id number] technique, a 18 gauge 3.5 Tuohy epidural needle entered the epidural space. After negative aspiration of CSF and blood with no paresthesias, 2 ml of [id number] contrast dye was injected and an excellent epidurogram was seen. Again after negative aspiration of CSF and blood with no paresthesias, 10 mL of block solution was injected into the epidural space. Block solution contained 40 mg of Depo-Medrol, and 9 mL of preservative-free normal saline. Needle was withdrawn intact, skin was cleansed, and bandages were applied. COMPLICATIONS: None. DISPOSITION / PLANS: The patient was placed in a supine position and transferred to the recovery area in a stable condition for observation. Patient was discharged from the recovery room after meeting discharge criteria. Home discharge instructions given to the patient by the staff. The patient was reexamined prior to discharge. The patient will schedule a follow up in the clinic in 4 weeks. Note: 20-gauge 3.5 inch Tuohy epidural needle is not available as needed to back ordered
[2022-03-10] MEDS ORDERED: LACTATED RINGERS 1,000 ML IV SCH (09:15)
[2022-03-10] MEDS ORDERED: IV FLUID CONTINUATION 1,000 ML IV ONE (09:17)
--- NOTE | 2022-03-10 09:25 | FL ---
EXAMINATION TYPE: FL guided pain mgmt statistic DATE OF EXAM: 03/10/2022 CLINICAL HISTORY: Low back pain. TECHNIQUE: Fluoroscopy. COMPARISON: None. FINDINGS: Fluoroscopic guidance was provided during pain relief procedure performed by Dr. Bonds . A total of 3 seconds of fluoroscopic time was utilized during the procedure and 2 spot images are a cquired. Images acquired shows needle localization at the posterior L5-S1 level. IMPRESSION: As Above.
[2022-03-10 09:34] VITALS: BP 117/70; PULSE 69; RESP 16
== END 2022-03-10 09:50 | disposition home or self-care (01) ==
LOC: ORPAIN 08:28
DX: M51.16 Intervertebral disc disorders with radiculopathy, lumbar region (principal)
CPT/HCPCS: 62323; J2250; J1030; J3010; Q9966; 99152

== ENCOUNTER → 2022-04-04 | Outpatient (CLI) | payer MEDICARE ==
[2022-04-04 08:46] VITALS: BP 137/77; PULSE 67; RESP 18; TEMP 98.2
--- NOTE | 2022-04-04 08:55 | P.PN ---
Subjective Progress Note Date: 04/04/22 This is a 66-year-old lady with history of lower back pain which has improved significantly with the last lumbar epidural steroid injection with 80% of pain relief in her lower back area. The patient continues to have pain in the midthoracic area with radiation to the chest anteriorly which goes around her chest on both sides. This pain has been there for quite a while since her right thoracotomy for lung cancer which has been in remission . The patient takes tramadol and Neurontin sparingly. Patient denies new-onset weakness, bowel/bladder incontinence, or any other signs or symptoms of cauda equina syndrome. There are no signs of acute intoxication, and no indications of medication diversion or overuse. In addition to above, 13-point review of systems is also negative for chest pain, shortness of breath, changes in vision, changes in hearing, new onset weak ness, abdominal pain, diarrhea, extreme fatigue, malaise, fever, skin changes, homicidal or suicidal ideation, or bowel or bladder incontinence. 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 Explanation: When patients on opioids, opioid and psychological risk scores were reviewed. Diagnoses, prognoses, and multiple treatment options including but not limited to physical therapy, interventional therapies, adjuvant medical therapies, narcotic medication therapies, and surgery were discussed with the patient and all questions were answered to the patient's satisfaction. 2. Opioid agreement:When patients are prescribed opoids through our clinic, opioid agreement is signed with the patient and the patient is warned not to use opioids while driving or before driving and not to combine opioids with benzodiazepines or alcohol. 3. Counseling: When patient is smoking or obese, the patient was counseled extensively on SMOKING CESSATION, BODY MASS INDEX, EXERCISE. Specifically, the patient was instructed regarding the importance of smoking cessation, obesity, and exercise in the context of both chronic pain and overall health. 4. Procedures: Scheduled for a thoracic epidural steroid injection at the T7-T8 level or at the scar level of her previous right thoracotomy. 5. Consultations: None 6. Investigations: None 7. Medications: The patient does not need prescription today but she takes tramadol and Neurontin at home and she still has I cannot for these medications 8. Disposition: Proceed with the above-mentioned procedure as soon as possible 9. Maps were reviewed and were appropriate. Objective - Vital Signs Vital signs: Vital Signs Temp 98.2 F 04/04/22 08:33 Pulse 67 04/04/22 08:33 Resp 18 04/04/22 08:33 BP 137/77 04/04/22 08:33 Pulse Ox 97 04/04/22 08:33 FiO2 Intake & Output 04/03/22 04/04/22 04/04/22 18:59 06:59 18:59 Weight 108.862 kg
== END ==
LOC: PNWHC3 08:18
PROVIDERS: ATTEND Anesthesiology
DX: M47.816 Spondylosis without myelopathy or radiculopathy, lumbar region (principal); M47.814 Spondylosis without myelopathy or radiculopathy, thoracic region; M79.2 Neuralgia and neuritis, unspecified
CPT/HCPCS: 99211

== ENCOUNTER → 2022-04-26 | Outpatient (CLI) | payer MEDICARE ==
--- NOTE | 2022-04-26 12:21 | XR ---
EXAMINATION TYPE: XR thoracic spine 2V DATE OF EXAM: 04/26/2022 COMPARISON: CT dated 02/03/2022 INDICATION: Back pain. TECHNIQUE: Standard 3 views of the thoracic spine. FINDINGS: Mild dextroscoliosis of the lower thoracic spine. Partial resection of the right sixth rib. Surgical suture is seen at the inferior aspect of the right lung. Slightly exaggerated dorsal kyphosis. No sig nificant anterolisthesis or retrolisthesis. No definite vertebral body collapse or acute displaced fracture. Degenerative changes of the mid to l ower thoracic spine with opposing endplate osteophytosis and slightly degenerative disks. T1 vertebral body is suboptimally visualized in the lateral view. No gross paraspinal lesion. Cholecy stectomy clips. IMPRESSION: Degenerative changes of the thoracic spine and other incidental findings as described above.
== END ==
LOC: RADXRMAIN 11:43
PROVIDERS: ATTEND Physician Assistant Medical
DX: M51.34 Other intervertebral disc degeneration, thoracic region (principal); M47.814 Spondylosis without myelopathy or radiculopathy, thoracic region
CPT/HCPCS: 72070

== ENCOUNTER → 2022-05-31 | Outpatient (CLI) | payer MEDICARE ==
--- NOTE | 2022-06-01 04:47 | MR ---
EXAMINATION TYPE: MR thoracic spine wo con DATE OF EXAM: 05/31/2022 COMPARISON: None HISTORY: Thoracic pain x 3 years Multiplanar multiecho imaging of the thoracic spine with no contrast. Thoracic vertebra have normal alignment. No compression fracture. Thoracic spinal cord has normal sig nal pattern. No edema. There is no thoracic paraspinal mass. No evidence of focal bone destruction.Th ere is a small posterior disc herniation at T6-7. This extends on the left side without significant n eural foraminal impingement. There is no spinal stenosis. IMPRESSION: No fracture. No spinal stenosis. Small posterior left side T6-7 disc herniation without significant i mpingement on the neural elements.
== END | disposition home or self-care (01) ==
LOC: RADMRIMAIN 06:54
PROVIDERS: ATTEND Specialist
DX: M51.34 Other intervertebral disc degeneration, thoracic region (principal)
CPT/HCPCS: 72146

== ENCOUNTER → 2022-07-25 | Outpatient (CLI) | payer MEDICARE ==
[2022-07-25 10:59] VITALS: BP 134/83; PULSE 89; RESP 18; TEMP 98.6
--- NOTE | 2022-07-25 16:19 | P.PAINPG ---
PQRS Measure Charge Sheet Comment: A 67 yr old female with a history of severe and chronic mid to low back pain secondary to thoracolumbar degenerative disc diseases and spondylosis with facet arthropathy without myelopathy presents today for evaluation s/p R paramedial T6-7 ASHLEY. Pt states she experienced 99% pain relief x 2 wks s/p procedure. Pain level is currently at 2/10 in intensity, constant, localized in the mid spine, sharp in character w shooting towards the flank. Pain is provoked by climbing steps. Pain is alleviated with PT in the past, massage therapy monthly x 2 yrs, chiropractic treatments monthly x 2 yrs, heat, ice, topicals, repositioning and rest. Interventional pain procedures completed include T6-T7 ASHLEY Patient is currently on DENIES Patient denies any side effects of the medication(s), denies excessive drowsiness or sleepiness, denies suicidal ideation and reports that the current pain medication is helping to control the pain and improve activities of daily living. Patient denies any motor or sensory deficits. Patient denies any fever or night sweats, denies any change in the bowel movements or urination. Physical Examination: -Constitutional: Cooperative. Not in acute distress . - Neurologic: Cranial nerve II to XII intact. No focal neurological deficits. - Psychatric: Alert & oriented x 3. Matching mood & appropriate affect. Judgment and insight intact. - Musculoskeletal: Cervical spine: Muscle bulk/ tone/ strength in the bilateral upper extremities normal Vertebral body tenderness to palpation over Spurling test positive Distraction test positive Facet loading test positive Thoracic spine Muscle bulk / tone/ strength in the bilateral paraspinal muscles normal Vertebral body tender to palpation over Facet loading test positive Lumbar spine: Motor bulk/ tone/ strength lower extremities , thigh and legs : 5/5 Deep tendon reflexes : Normal Knee Jerk. Normal Ankle Jerk . Vertebral body tenderness to palpation over Lumbar Facet Loading Test positive Straight Leg Raise: positive at 30 degrees right side/ left side Gaenslen's Test positive Sacral spine : Severe tenderness over the Sacroiliac joint: right side / left side Range of motion: Flexion of the lumbar spine <60 degrees Range of motion: Extension of the lumbar spine <20 degrees Gaenslen's Test positive Kenji's Test positive Reed test: positive right side / left side Thigh Thrust Test Sacral Thrust Test Assessment and plan: Chronic mid to low back pain secondary to thoracolumbar degenerative disc disease , spondylosis with facet arthropathy without myelopathy Pt exhibited substantial pain relief s/p procedure. She may return to our clinic on an as needed basis. Risks, benefits of procedure discussed and pt verbalized understanding. Denies anticoagulant use or medical history of diabetes. All patient questions answered MAPS reviewed and it was appropriate. I have spent less than 30 minutes on patient care today. Dr Gomez was available by phone for the evaluation of this patient. The time was used to review the medical records including relevant urine studies and Prescription history (MAPs), review of the available imaging, evaluation and examination of the patient, coordination of care with the medical staff and if applicable referring physicians, as well as creation of the medical record PQRS Narrative: Smoking Status Never smoker Narcotic Agreement Date Signed 09/27/21 Hx Alcohol Use (MH) Yes: occ Home Medications: Ambulatory Orders Cholecalciferol [Vitamin D3] 2,000 unit PO DAILY 04/06/17 Cinnamon Bark [Cinnamon] 1,000 mg PO BID 04/06/17 Etodolac 500 mg PO BID 04/06/17 Sertraline [Zoloft] 100 mg PO QAM 04/06/17 Simvastatin 80 mg PO HS 04/06/17 Triamterene/Hydrochlorothiazid [Triamterene-Hctz 37.5-25 mg Tb] 1 each PO DAILY 04/06/17 Vitamin B Complex 1 each PO DAILY 04/06/17 [place]-3 Fatty Acids/Fish Oil [Fish Oil 1,000 mg Softgel] 1 each PO DAILY 05/20/21 Famotidine [Pepcid AC] 10 mg PO BID 07/22/21 Gabapentin [Neurontin] 300 mg PO TID 30 Days #90 cap 06/09/22 traMADol HCl [Ultram] 50 mg PO Q12HR PRN 30 Days #60 tab 06/09/22 Controlled Substance Measures - Controlled Substance Measures Is patient prescribed a controlled substance at discharge?: No
== END ==
LOC: PNWHC3 10:26
PROVIDERS: ATTEND Specialist
DX: M51.35 Other intervertebral disc degeneration, thoracolumbar region (principal); M47.815 Spondylosis without myelopathy or radiculopathy, thoracolumbar region; G89.29 Other chronic pain
CPT/HCPCS: 99211

== ENCOUNTER → 2022-08-08 | Outpatient (CLI) | payer MEDICARE ==
--- NOTE | 2022-08-08 10:37 | CT ---
EXAMINATION TYPE: CT chest wo con DATE OF EXAM: 08/08/2022 COMPARISON: Prior chest CT February 03, 2022 and older CTs. HISTORY: Solitary pulmonary nodule CT DLP: 588.5 mGycm. Automated Exposure Control for Dose Reduction was Utilized. TECHNIQUE: CT scan of the thorax is performed without IV contrast. FINDINGS: LUNGS: Low lung volumes are redemonstrated. Persistent mild right greater than left bibasilar linear scarring and/or atelectasis is again seen. Right medial lower lung partial pneumonectomy changes are redemonstrated. No new greater than 4 mm nodules or masses bilaterally. There is slow growing 10 x 7 mm nodule right upper lung axial image 11. No additional new or enlarging greater than 5 mm pulmonary nodules. No pleural effusion or pneumothorax seen bilaterally. MEDIASTINUM: Lack of IV contrast is noted to limit evaluation for mediastinal and especially hilar ad enopathy. There are no definitive new greater than 1 cm mediastinal lymph nodes. Heart size stable an d upper limits of normal. Trace Pericardial effusion remains present. Coronary artery calcification r edemonstrated. OTHER: Cholecystectomy clips are redemonstrated. Slight scoliotic curvature again seen. IMPRESSION: Slow growing 10 x 7 mm right upper lung pulmonary nodule. Neoplasm needs to be considered . Consider PET/CT follow-up.
== END | disposition home or self-care (01) ==
LOC: RADCTMAIN 09:17
PROVIDERS: ATTEND Internal Medicine Hematology & Oncology
DX: R91.1 Solitary pulmonary nodule (principal)
CPT/HCPCS: 71250

== ENCOUNTER → 2022-08-19 | Outpatient (CLI) | payer MEDICARE ==
--- NOTE | 2022-08-19 12:01 | PE ---
EXAMINATION TYPE: PET CT fusion skull to thigh DATE OF EXAM: 08/19/2022 COMPARISON: Prior PET/CT June 08, 2019. Most recent chest CT August 08, 2022 and older CTs. HISTORY: Endometrial cancer progress study. History of right lung partial resection 2018. TECHNIQUE: Following the intravenous administration of 10.37 mCi of F-18 FDG, whole body images are performed from the skull base to the midthigh. Images are reviewed on the computer in the coronal, a xial, and sagittal planes. Reconstructed rotating images are created on independent workstation and reviewed on the computer. A localization and attenuation correction CT is performed in conjunction with the PET scan. Blood glucose level equals 135. SCAN: Subsequent Scan FINDINGS: SKULL BASE AND NECK: No new areas of abnormal hypermetabolic uptake. CHEST, MEDIASTINUM, AND HILAR REGION: No abnormal hypermetabolic uptake in the slow growing 11 x 7 mm right upper lobe nodule axial image 69. No areas of abnormal hypermetabolic uptake throughout entire thorax. ABDOMEN AND PELVIS: Normal excretion is present. No abnormal hypermetabolic uptake. Uterus surgically absent. OSSEOUS STRUCTURES: No abnormal hypermetabolic uptake. OTHER CT: Surgical changes to the lower right lung redemonstrated. Cholecystectomy clips redemonstrat ed. IMPRESSION: No abnormal hypermetabolic uptake to suggest malignancy. Slow growing near 1.0 cm right u pper lung nodule however remains suspicious and should be closely followed.
== END | disposition home or self-care (01) ==
LOC: RADPETMAIN 07:03
PROVIDERS: ATTEND Internal Medicine Hematology & Oncology
DX: C54.1 Malignant neoplasm of endometrium (principal)
CPT/HCPCS: 78815; A9552

== ENCOUNTER → 2022-09-19 | Outpatient (CLI) | payer MEDICARE ==
--- NOTE | 2022-09-20 17:15 | MM ---
Reason for Exam: Screening (asymptomatic). Last mammogram was performed 1 year(s) and 1 month(s) ago. Patient History: Menarche at age 12. First Full-Term at age 24. Postmenopausal. Risk Values: [place] 5 year model risk: 1.6%. NCI Lifetime model risk: 5.9%. Prior Study Comparison: 06/13/2019 Bilateral MG screening mammo w CAD - 2, [facility]. 08/06/2020 Bilateral MG screening mammo w CAD - 2, [facility]. 08/24/2021 Bilateral MG screening mammo w CAD - 2, [facility]. 09/08/2021 Left MG work up mamm w CAD LT - 2, [facility]. Tissue Density: There are scattered fibroglandular densities. Findings: Analyzed By CAD. Pattern appears symmetrical and stable. No significant interval change is evident. No suspicious groups of microcalcifications, spiculated or lobular masses, architectural distortion or other secondary signs of malignancy are mammographically apparent. Overall Assessment: Benign, BI-RAD 2 Management: Screening Mammogram of both breasts in 1 year. A negative mammogram report should not preclude additional follow up of suspicious palpable abnormalities. Patient should continue monthly self breast exam. A clinical breast exam by your physician is recommended on an annual basis and results should be correlated with mammographic findings. Electronically signed and approved by: Camron Huff D.O. Radiologis
== END | disposition home or self-care (01) ==
LOC: RADMAMWWP 09:58
PROVIDERS: ATTEND Family Medicine
DX: Z12.31 Encounter for screening mammogram for malignant neoplasm of breast (principal); Z78.0 Asymptomatic menopausal state
CPT/HCPCS: 77063; 77067

== ENCOUNTER → 2022-10-31 | Outpatient (CLI) | payer MEDICARE ==
--- NOTE | 2022-10-31 10:06 | CT ---
EXAMINATION TYPE: CT chest wo con DATE OF EXAM: 10/31/2022 COMPARISON: 08/08/2022 HISTORY: Lung nodule. CT DLP: 472.5 mGycm, Automated exposure control for dose reduction was used. CONTRAST: Performed injected with 0 mL of Isovue 300. TECHNIQUE: Axial images were obtained at 5 mm thick sections. Reconstructed images are reviewed on [employer] computer in the coronal plane. FINDINGS: Portion of the thyroid visualized is normal. There is a 1.1 x 0.6 cm right apical nodule. Previous measurements 1.0 x 0.7 cm. Some subpleural fat is in the right posterior lateral chest present previously there is some streak opacity within the po sterior right mid lung, stable from comparison. Mild streaky atelectasis or scarring is in the siebel crm developer ior right lung base.r No enlarged mediastinal or hilar adenopathy is evident. The ascending aorta diameter at the level o f the main pulmonary artery is 3.5 cm. The main pulmonary artery diameter at the bifurcation is 3.0 cm. Mild coronary artery calcification is present. Limited CT sections are obtained through the upper abdomen. Abdomen is essentially unremarkable. IMPRESSIONS: 1. Stable right apical nodule. This should be confirmed as stable over the course of 2 years. Follow- up in 6 months can be performed.
== END | disposition home or self-care (01) ==
LOC: RADCTMAIN 07:54
PROVIDERS: ATTEND Internal Medicine Hematology & Oncology
DX: C54.1 Malignant neoplasm of endometrium (principal); E78.5 Hyperlipidemia, unspecified; R91.1 Solitary pulmonary nodule; Z71.3 Dietary counseling and surveillance
CPT/HCPCS: 71250

== ENCOUNTER → 2022-11-10 | Outpatient (CLI) | payer MEDICARE ==
[2022-11-10 10:34] LABS: Amorphous Sediment,Urine Occasional /hpf; Appearance,Urine Cloudy (Clear); Bacteria,Urine Rare /hpf; Bilirubin,Urine 3+ (Negative); Blood,Urine Negative (Negative); Color,Urine Yellow; Glucose,Urine (UA) Negative (Negative); Ketones,Urine Negative (Negative); Leukocyte Esterase,Urine Large (Negative); Mucus,Urine Rare /hpf; Nitrite,Urine Negative (Negative); Protein,Urine Trace (Negative); RBC,Urine 3 /hpf (0-5); Specific Gravity,Urine 1.021 (1.001-1.035); Squamous Epithelial Cell,Urine 5 /hpf (0-4); Urobilinogen,Urine <2.0 mg/dL (<2.0); WBC,Urine 21 /hpf (0-5)
[2022-11-10 15:05] LABS: HGB 13.7 g/dL (12.0-15.0); MCH 29.9 pg (27.0-32.0); MCHC 33.4 g/dL (32.0-37.0); MCV 89.5 fL (80.0-97.0); Mean Platelet Volume 10.3 fL (9.5-12.2); NRBC Per 100 WBC 0 /100 WBCS (0.0-0.0); Platelet Count 256 X 10*3/uL (140-440); RBC 4.58 X 10*6/uL (4.10-5.20); RDW 11.9 % (11.5-14.5); WBC 6.81 X 10*3/uL (4.50-10.00)
[2022-11-10 15:40] LABS: ALT 25 U/L (8-44); AST 22 U/L (13-35); African American GFR (CKD) 96.7 (60.0-200.0); Albumin 4.5 g/dL (3.8-4.9); Albumin/Globulin Ratio 2.11 (1.60-3.17); Alkaline Phosphatase 84 U/L (41-126); BUN/Creat Ratio 22.09 Ratio (12.00-20.00); Blood Urea Nitrogen 16.5 mg/dL (9.0-27.0); Calcium 10.3 mg/dL (8.7-10.3); Carbon Dioxide 25.4 mmol/L (20.0-27.5); Chloride 104 mmol/L (96-109); Chol/HDL Ratio 3.47 Ratio; Globulin 2.1 g/dL (1.6-3.3); Glucose 141 mg/dL (70-110); LDL Cholesterol,Calculated 95.5 mg/dL (0.0-131.0); Non-African American GFR(CKD) 83.5 (60.0-200.0); Potassium 4.3 mmol/L (3.5-5.5); Sodium 142 mmol/L (135-145); Total Protein 6.6 g/dL (6.2-8.2)
== END | disposition home or self-care (01) ==
LOC: LABWHC1 08:25
PROVIDERS: ATTEND Family Medicine
DX: Z00.01 Encounter for general adult medical examination with abnormal findings (principal); E11.9 Type 2 diabetes mellitus without complications
CPT/HCPCS: 36415; 80053; 80061; 81001; 82043; 82306; 82570; 83036; 85027

== ENCOUNTER → 2022-11-17 | Outpatient (CLI) | payer MEDICARE ==
[2022-11-17 12:34] VITALS: BP 153/83; PULSE 81; RESP 18; TEMP 98.5
--- NOTE | 2022-11-17 15:28 | P.PAINPG ---
Objective - Vital Signs Vital signs: Vital Signs Temp 98.5 F 11/17/22 12:29 Pulse 81 11/17/22 12:29 Resp 18 11/17/22 12:29 BP 153/83 11/17/22 12:29 Pulse Ox 96 11/17/22 12:29 FiO2 Intake & Output 11/16/22 11/17/22 11/17/22 18:59 06:59 18:59 Weight 106.594 kg PQRS Measure Charge Sheet Mode of Arrival: Ambulatory Comment: A 67 yr old female with a history of severe and chronic low back pain secondar y to lumbar DDD and spondylosis with facet arthropathy without myelopathy presents today for LBP. Pain level is currently at 8 /10 in intensity, constant, localized in the lumbar spine, sharp in character w shooting towards . Pain is provoked by bending, climbing steps. Pain is alleviated with PT in the past, home exercise daily, massage therapy monthly, chiropractic treatments monthly, heat, ice, topicals, repositioning and rest. Interventional pain procedures completed include ASHLEY T6-T7, L5-S1 Patient is currently on Denies Patient denies any side effects of the medication(s), denies excessive drowsiness or sleepiness, denies suicidal ideation and reports that the current pain medication is helping to control the pain and improve activities of daily living. Patient denies any motor or sensory deficits. Patient denies any fever or night sweats, denies any change in the bowel movements or urination. Physical Examination: -Constitutional: Cooperative. Not in acute distress . - Neurologic: Cranial nerve II to XII intact. No focal neurological deficits. - Psychatric: Alert & oriented x 3. Matching mood & appropriate affect. Judgment and insight intact. - Musculoskeletal: Cervical spine: Muscle bulk/ tone/ strength in the bilateral upper extremities normal Vertebral body tenderness to palpation over Spurling test positive Distraction test positive Facet loading test positive Thoracic spine Muscle bulk / tone/ strength in the bilateral paraspinal muscles normal Vertebral body tender to palpation over Facet loading test positive Lumbar spine: Motor bulk/ tone/ strength lower extremities , thigh and legs : 5/5 Deep tendon reflexes : Normal Knee Jerk. Normal Ankle Jerk . Vertebral body tenderness to palpation over L5 Lumbar Facet Loading Test positive Straight Leg Raise: positive at 30 degrees right side/ left side Gaenslen's Test positive Sacral spine : Severe tenderness over the Sacroiliac joint: right side / left side Range of motion: Flexion of the lumbar spine <60 degrees Range of motion: Extension of the lumbar spine <20 degrees Gaenslen's Test positive Reed test: positive right side / left side Thigh Thrust Test Sacral Thrust Test Assessment and plan: Chronic low back pain secondary to lumbar degenerative disc disease, spondylosis with facet arthropathy without myelopathy Recommendation of ASHLEY L5-S1. May need a series, up to 4 within a 12 mo period, for optimal pain relief. Risks, benefits of procedure discussed and pt verbalized understanding. Denies anticoagulant use or medical history of diabetes. All patient questions answered I have spent less than 30 minutes on patient care today. Dr Gomez was available by phone for the evaluation of this patient. The time was used to review the medical records including relevant urine studies and Prescription history (MAPs), review of the available imaging, evaluation and examination of the patient, coordination of care with the medical staff and if applicable referring physicians, as well as creation of the medical record - Pain Location Lower Back Non-Pharmacological Interventions: Chiropractic Treatment, Heat, Home Exercise, Ice, Inactivity, Massage, Physical Therapy, Position/Reposition, Sitting, Stretching Pharmacological Interventions: Epidural, Topical Medication PQRS Narrative: Smoking Status Never smoker Narcotic Agreement Date Signed 09/27/21 Blood Pressure 153/83 Pain Intensity [Lower Back] 8 Scale Used Numeric (1 - 10) Hx Alcohol Use (MH) Yes: occ Home Medications: Ambulatory Orders Cholecalciferol [Vitamin D3] 2,000 unit PO DAILY 04/06/17 Cinnamon Bark [Cinnamon] 1,000 mg PO BID 04/06/17 Etodolac 500 mg PO BID 04/06/17 Sertraline [Zoloft] 100 mg PO QAM 04/06/17 Simvastatin 80 mg PO HS 04/06/17 Triamterene/Hydrochlorothiazid [Triamterene-Hctz 37.5-25 mg Tb] 1 each PO DAILY 04/06/17 Vitamin B Complex 1 each PO DAILY 04/06/17 [place]-3 Fatty Acids/Fish Oil [Fish Oil 1,000 mg Softgel] 1 each PO DAILY 05/20/21 Famotidine [Pepcid AC] 10 mg PO BID 07/22/21 Controlled Substance Measures - Controlled Substance Measures Is patient prescribed a controlled substance at discharge?: No
== END ==
LOC: PNWHC3 12:12
PROVIDERS: ATTEND Specialist
DX: M47.816 Spondylosis without myelopathy or radiculopathy, lumbar region (principal); M51.36 Other intervertebral disc degeneration, lumbar region; G89.29 Other chronic pain
CPT/HCPCS: 99211

== ENCOUNTER 2022-11-24 11:17 | Day surgery (SDC) | payer MEDICARE ==
[2022-11-24] MEDS ORDERED: LIDOCAINE 1% (10MG/ML) FOR IV START INTRADERMA PRN (11:40)
[2022-11-24] MEDS ORDERED: LACTATED RINGERS 1,000 ML IV SCH (11:40)
[2022-11-24 11:53] VITALS: TEMP 97
[2022-11-24 11:54] LABS: Glucose,Whole Blood 133 mg/dL (70-110)
[2022-11-24] MEDS ORDERED: MIDAZOLAM 2 MG/2 ML VIAL ONE (12:32)
[2022-11-24] MEDS ORDERED: methylPREDNISolone ACETATE 80 MG/ML 1 ML VIAL ONE (12:32)
[2022-11-24] MEDS ORDERED: IOPAMIDOL M200 10 ML VIAL ONE (12:32)
[2022-11-24] MEDS ORDERED: fentaNYL (PF) 50 MCG/ML 2 ML AMP ONE (12:32)
--- NOTE | 2022-11-24 12:45 | P.PCN ---
Date of Procedure: 11/24/22 Procedure(s) Performed: PREOPERATIVE DIAGNOSIS: 1- Lumbar Degenerative Disc Diseases 2-Lumbar spondylosis with Facet arthropathy without myelopathy. POSTOPERATIVE DIAGNOSIS: Same as preop diagnosis. PROCEDURE 1. Lumbar epidural steroid injection under fluoroscopic guidance at the L5-S1 level. (Fluoroscopy imaging was available in radiology department) 2. Lumbar epidurogram. ANESTHESIA: moderate sedation with intravenous Versed 1 mg ,and fentanyle 50 Mcg Sedation start time : 1237 Sedation end time : 1243 EBL: Minimal PROCEDURE INDICATION: The patient with low back pain and radiculitis symptoms unresponsive to conservative treatment. Fluoroscopy was used to optimize visualization of the needle placement and to maximize safety. PROCEDURE DESCRIPTION / TECHNIQUE: The patient was seen and identified in the preoperative area. Risks, benefits, complications including but not limited to infections ,bleeding ,allergic reaction to the medications ,nerve damage and not complete pain releife , and alternatives were discussed with the patient. The patient agreed to proceed with the procedure and signed the consent. IV was started, and vital signs were stable. Patient was taken to the OR and time out was completed. The patient was placed in the prone position on procedure table and a pillow was placed under the abdomen to reduce lumbar lordosis. The lumbosacral area was prepped and draped in the usual sterile fashion.ere closely monitored during the procedure. Conscious sedation was used during the procedure to decrease patients anxiety. Vital signs was monitered during the entire procedure. Using anterior-posterior fluoroscopy, the L5-S1 interlaminar space was identified and the skin over this site was marked and then infiltrated with 1% lidocaine subcutaneously. Subsequently, a 20-gauge Tuohy epidural needle was inserted and advanced toward the epidural space using the ``Loss of resistance technique and guided by AP and lateral fluoroscopy. The correct needle position in the epidural space was verified with the injection of 2 mL of the water soluble contrast dye Isovue 300 contrast and observing an excellent epidurogram with the epidural spread of the dye, after negative aspiration for blood and CSF and in the absence of paresthesias. Again after negative aspiration, a 6 ml mixture containing 80 mg of Depo-medrol ( Preservetive Free ), and 2 ml of preservative free Normal Saline, and 2 ml of preservative free lidocaine 1% solution was injected and a washout of epidurogram was seen. Needle was withdrawn intact, skin was cleansed, and bandages were applied. COMPLICATIONS: None DISPOSITION / PLANS: The patient was placed in a supine position and transferred to the recovery area in a stable condition for observation. There was no evidence of lower extremity motor or sensory deficit after the procedure. Patient was discharged from the recovery room after meeting discharge criteria. Home discharge instructions were given to the patient by the staff. The patient was reexamined prior to discharge. The patient will schedule a follow up in the clinic in 2-4 weeks.
[2022-11-24] MEDS ORDERED: IV FLUID CONTINUATION 1,000 ML IV ONE (12:48)
[2022-11-24 12:51] VITALS: RESP 12
[2022-11-24 13:05] VITALS: BP 146/87; PULSE 80
--- NOTE | 2022-11-24 13:07 | FL ---
EXAMINATION TYPE: FL guided pain mgmt statistic DATE OF EXAM: 11/24/2022 CLINICAL HISTORY: Low back pain. TECHNIQUE: Fluoroscopy. COMPARISON: None. FINDINGS: Fluoroscopic guidance was provided during pain relief procedure performed by Dr. Gomez . A total of 5 seconds of fluoroscopic time was utilized during the procedure and 1 spot images a re acquired. Images acquired shows needle localization at the level of the lower lumbar spine. IMPRESSION: As Above.
== END 2022-11-24 13:32 | disposition home or self-care (01) ==
LOC: ORPAIN 11:17
PROVIDERS: ATTEND Specialist
DX: M51.16 Intervertebral disc disorders with radiculopathy, lumbar region (principal); M47.26 Other spondylosis with radiculopathy, lumbar region
CPT/HCPCS: 62323; J2250; J1040; J3010; Q9966

== ENCOUNTER → 2023-02-02 | Outpatient (CLI) | payer MEDICARE ==
[2023-02-02 11:27] LABS: INR 0.9 (<1.2)
[2023-02-02 11:38] LABS: Partial Thromboplastin Time 21.6 sec (22.0-30.0)
[2023-02-02 14:24] LABS: HCT 39.7 % (37.2-46.3); HGB 12.9 g/dL (12.0-15.0); MCH 30.1 pg (27.0-32.0); MCHC 32.5 g/dL (32.0-37.0); MCV 92.5 fL (80.0-97.0); Mean Platelet Volume 10.7 fL (9.5-12.2); NRBC Per 100 WBC 0 /100 WBCS (0.0-0.0); Platelet Count 252 X 10*3/uL (140-440); RBC 4.29 X 10*6/uL (4.10-5.20); RDW 12.3 % (11.5-14.5)
[2023-02-02 14:28] LABS: African American GFR (CKD) 110.1 (60.0-200.0); Albumin 4.6 g/dL (3.8-4.9); Albumin/Globulin Ratio 1.77 (1.60-3.17); Anion Gap 14.6 mmol/L (10.00-18.00); BUN/Creat Ratio 26.17 Ratio (12.00-20.00); Blood Urea Nitrogen 15.7 mg/dL (9.0-27.0); Calcium 10.2 mg/dL (8.7-10.3); Carbon Dioxide 21.4 mmol/L (20.0-27.5); Globulin 2.6 g/dL (1.6-3.3); Potassium 4.4 mmol/L (3.5-5.5); Total Bilirubin 0.5 mg/dL (0.30-1.20); Total Protein 7.2 g/dL (6.2-8.2)
[2023-02-02 15:24] LABS: Appearance,Urine Clear (Clear); Bilirubin,Urine Negative (Negative); Blood,Urine Negative (Negative); Color,Urine Yellow (Yellow); Ketones,Urine Negative (Negative); Nitrite,Urine Negative (Negative); Specific Gravity,Urine 1.018 (1.001-1.030); Urobilinogen,Urine 0.2 (0.2,1.0)
[2023-02-02 15:32] LABS: Bacteria,Urine None Seen /HPF (None Seen)
== END | disposition home or self-care (01) ==
LOC: LABPAT 10:17
PROVIDERS: ATTEND Orthopaedic Surgery
DX: Z01.818 Encounter for other preprocedural examination (principal); I45.10 Unspecified right bundle-branch block; M17.12 Unilateral primary osteoarthritis, left knee; R94.31 Abnormal electrocardiogram [ECG] [EKG]
CPT/HCPCS: 80053; 81001; 85027; 85610; 85730; 87070; 93005

== ENCOUNTER → 2023-02-15 | Outpatient (CLI) | payer MEDICARE ==
--- NOTE | 2023-02-15 15:31 | CT ---
EXAMINATION TYPE: CT chest wo con DATE OF EXAM: 02/15/2023 COMPARISON: 10/31/2022 HISTORY: f/u nodules CT DLP: 753 mGycm, Automated exposure control for dose reduction was used. CONTRAST: None TECHNIQUE: Axial images were obtained at 5 mm thick sections. Reconstructed images are reviewed on [employer] computer in the coronal plane. FINDINGS: Portion of the thyroid visualized is normal. There is a 0.9 cm nodule in the right apex. Small linear comparison. There is some impression from subpleural fat in the posterior lateral right upper lung field. Image 2 4 No enlarged mediastinal or hilar adenopathy is evident. The ascending aorta diameter at the level o f the main pulmonary artery is 3.9 cm. The main pulmonary artery diameter at the bifurcation is 2.9 cm. Mild coronary artery calcification is present. Limited CT sections are obtained through the upper abdomen. Abdomen is essentially unremarkable. IMPRESSIONS: 1. Stable right apical nodule. Follow-up CT chest in 6 months
== END | disposition home or self-care (01) ==
LOC: RADCTMAIN 11:41
PROVIDERS: ATTEND Internal Medicine Hematology & Oncology
DX: C54.1 Malignant neoplasm of endometrium (principal); R91.1 Solitary pulmonary nodule
CPT/HCPCS: 71250

== ENCOUNTER 2023-02-20 13:12 | Observation (INO) | payer MEDICARE ==
[~2023-02-20 13:12] MED LIST changes: +ACETAMINOPHEN TAB 500 MG TAB PO PRN; +HYDROmorphone 0.5 MG/0.5 ML SYRINGE IVP PRN; -IOPAMIDOL M200 10 ML VIAL ONE; -IV FLUID CONTINUATION 1,000 ML IV ONE; -LACTATED RINGERS 1,000 ML IV ONE; -LACTATED RINGERS 1,000 ML IV SCH; +LIDOCAINE 1% (10MG/ML) FOR IV START INTRADERMA PRN; +MELOXICAM 7.5 MG TAB PO PRN; -MIDAZOLAM 2 MG/2 ML VIAL ONE; +ONDANSETRON 4 MG/2 ML VIAL IVP PRN; -ROPIVACAINE 5MG/ML 20ML VIAL ONE; +ROPIVACAINE/EPI/CLONIDINE/KET 50 ML SYRINGE MISCELLANE PRN; +TRANEXAMIC ACID IN NACL,ISO-OS 1,000 MG in SALINE 1 100ML.BAG IVPB PRN; -fentaNYL (PF) 50 MCG/ML 2 ML AMP ONE; -methylPREDNISolone ACETATE 40 MG/ML 1 ML VIAL ONE
[2023-02-20] MEDS: LACTATED RINGERS 1,000 ML IV SCH ×2 (14:14→18:44)
[2023-02-20 14:18] LABS: Glucose,Whole Blood 127 mg/dL (70-110)
[2023-02-20] MEDS ORDERED: MIDAZOLAM 2 MG/2 ML VIAL IV ONE ×2 (14:34→14:35)
[2023-02-20] MEDS ORDERED: BUPIVACAINE (PF) 0.5% 30 ML VIAL ONE (14:58)
[2023-02-20] MEDS ORDERED: MIDAZOLAM 2 MG/2 ML VIAL ONE (14:58)
[2023-02-20] MEDS ORDERED: DEXAMETHASONE SOD PHOSPHATE 4 MG/ML 1 ML VIAL ONE (14:58)
[2023-02-20] MEDS ORDERED: fentaNYL (PF) 50 MCG/ML 2 ML AMP ONE (14:58)
[2023-02-20] MEDS ORDERED: ceFAZolin 1,000 MG in SODIUM CHLORIDE 0.9% 1,000 ML IRRIGATION ONE (15:28)
[2023-02-20] MEDS ORDERED: ROPIVACAINE 1,100 MG, SODIUM CHLORIDE 0.9% 500 ML 330 ML, EMPTY PAIN BALL 1 EACH MISCELLANE PRN ×2 (16:19)
--- NOTE | 2023-02-20 16:21 | P.ANPRN ---
Procedure Note - Anesthesia - Nerve Block Performed Left Adductor Canal Infusion Time Out Performed: Yes Date of Procedure: 02/20/23 Procedure Start Time: 14:33 Procedure Stop Time: 14:45 Location of Patient: PreOp Indication: Acute Post-Operative Pain, Requested by Surgeon Sedation Type: Sedate with meaningful contact maintained Preparation: Sterile Prep, Sterile Dressing Position: Supine Catheter: Indwelling Needle Types: On-Q Needle Gauge: 18 Ultrasound used to visualize needle placement: Yes Ultrasound used to observe medication spread: Yes Injectate: 0.5% Ropivacaine (see comment for volume) (20 ml + decadron 2 mg) Blood Aspirated: No Pain Paresthesia on Injection Noted: No Resistance on Injection: Normal Image Stored and Saved: Yes Events: Uneventful and Well Tolerated Left iPack Single Time Out Performed: Yes Date of Procedure: 02/20/23 Procedure Start Time: 14:46 Procedure Stop Time: 14:52 Location of Patient: PreOp Indication: Acute Post-Operative Pain, Requested by Surgeon Sedation Type: Sedate with meaningful contact maintained Preparation: Sterile Prep Position: Right Lateral Catheter: None Needle Types: Facet Needle Gauge: 20 Ultrasound used to visualize needle placement: Yes Ultrasound used to observe medication spread: Yes Injectate: 0.5% Ropivacaine (see comment for volume) (10 ml + decadron 2 mg) Blood Aspirated: No Pain Paresthesia on Injection Noted: No Resistance on Injection: Normal Image Stored and Saved: Yes Events: Uneventful and Well Tolerated
--- NOTE | 2023-02-20 17:01 | P.OP ---
Date of Procedure: 02/20/23 Procedure(s) Performed: PREOPERATIVE DIAGNOSIS: Left knee severe osteoarthritis with genu varum and status post complete patellectomy POSTOPERATIVE DIAGNOSIS: Left knee severe osteoarthritis with genu varum and status post complete patellectomy OPERATION: Left knee cemented total replacement arthroplasty-cruciate substituting (PS) metal on polyethylene cemented. ANESTHESIA: Spinal ESTIMATED BLOOD LOSS: 100 ml. SITE AUDITOR: Mckenna Reynolds PA-C (assistance with: patient positioning, retraction, exposure, hemostasis, leg positioning, implantation, irrigation, closure, dressing) COMPLICATIONS: None apparent. COMPONENTS IMPLANTED: Persona system from [employer] INDICATIONS: Rosina is a 67 year old female with a history of severe left knee osteoarthritis. She has a history of patellar fracture with patellectomy many years ago. Conservative treatment has been tried and has been unsuccessful in controlling symptoms adequately. The operation of knee replacement has been discussed at length in the office, as well as potential risks and complications. These are inclusive of, but not limited to: bleeding, infection, scarring, discomfort, blood vessel and nerve damage, need for further surgery, failure to relieve symptoms, persistence, recurrence, or worsening of problems, loosening, dislocation, wear, blood clot, pulmonary embolism, , gait dysfunction, stiffness, and other risks as discussed in the office. The patient elects to proceed and the consent form has been signed. PROCEDURE: The patient was taken to the operating room and positioned on the operating room table in the supine position. Anesthesia was initiated. Care was taken to make sure that all pressure points were adequately padded. The operative lower extremity was prepped and draped in the usual aseptic fashion using ChloraPrep. Ioban drape was used for the case and the patient received intravenous antibiotics within one hour of the incision. A pneumotourniquet and leg hidalgo were used for the case. The limb was exsanguinated with an Esmarch bandage and the tourniquet was inflated to 275 mmHg. Time-out was called confirming the patient's identity, side, procedure and administration of antibiotics and tranexamic acid, 1 g IV. The incision was then created following her previous well healed scar over the knee, carried down through skin and into the subcutaneous tissues and down to fascia. Full thickness subcutaneous medial flap was developed. Medial arthrotomy was performed and the interior of the knee was inspected. There was end-stage osteoarthritis of the knee with a mild to moderate genu varum type deformity. No patella was present. Severe scar tissue and degenerative tissue was seen in the suprapatellar pouch and medial and lateral gutters. This was removed sharply using a knife. Hemostasis was used as needed for obvious vessels. The fat pad really not present but severe scar tissue was excised in this region with care to preserve the attachment of the patellar tendon to the tibia. Proximal medial release on the tibia was completed using meticulous dissection and a curved osteotome. The anterior cruciate ligament was taken down. Note was made of significant attrition of the anterior and significant degenerative appearance of the posterior cruciate ligaments. The exposure was excellent. The knee was flexed 90 degrees and the extensor tissue was retracted gently laterally. A spot was chosen on the femur approximately 1 cm anterior to the posterior cruciate ligament insertion and an intramedullary hole was created within the femur. The intramedullary guide was then set to 5 degrees of valgus. The distal cutting block was attached and pinned into position. An appropriate amount of distal femoral resection was set. The oscillating saw was then used to make the distal femoral cut. This cut was confirmed to be flat with the flat end of an osteotome. Due to the patient's preoperative flexion contracture, an additional 2 mm of material was resected off the distal femur. The retractors were placed around the tibia and the tibial surface was addressed. The angle and depth of resection was adjusted using an extramedullary cutting guide. The guide had a built-in 3 degree posterior slope cut. Once the cutting guide was adjusted appropriately and in line with the axis of the tibia and confirmed to be in good position in relation to the second metatarsal and transmalleolar axis, the tibial cut was then created with protection of the posterior neurovascular structures and the collateral ligaments. The tibial cut surface was removed and sized. Femoral sizing was then accomplished using anterior referencing. Care was taken to analyze the posterior condyles for signs of deficiency or severe wear, and adjustments to the guide were made, as appropriate. 3 degree external rotation pins were placed. The cutting jig for the femur was applied to these pins. The planned cuts were further analyzed prior to performing them with the oscillating saw. No femoral notching was produced. Bone fragments were removed and the cut surfaces were finished, as necessary, with a reciprocating saw. Spacer block technique was then used to confirm that the flexion and extension gaps were equal. Soft tissue releases and adjustment of the tibial and/or femo ral cuts were made, as necessary, until the gaps were equal. This included release of the posterior cruciate ligament, which was tight in this patient, as well as a limited posterior capsular release off the posterior femur. The femur was then further finished for a posterior cruciate ligament substituting component. The trial components were inserted. The tibial tray was allowed to self center and the patella was noted to track very well. The position of the tibial component was marked and the tibia was then finished for a stemmed tibial component. Cement was mixed on the back table and applied to the final components. Trial components were removed and the cut surfaces of the bone were pulse lavaged thoroughly and dried. Cement was then applied to the tibial surface and pressurized into the surface using finger pressurization technique. The tibial component was then applied and excess cement was removed after it was impacted securely and noted to be flush with the cut surface. In similar fashion, the cement was applied to the cut femoral surface, pressurized in using finger pressurization and the component was impacted into place. Excess cement was removed. The polyethylene spacer was then implanted and locked into position. Once the cement had fully hardened, the knee was reinspected. Any other cement extrusion was removed and final kinematic testing showed range of motion from 0 to 130 degrees with excellent stability, both medially and laterally and appropriate alignment of the leg. Extensor mechanism remained intact throughout the case and appeared robust. The knee was then thoroughly pulse lavaged with normal saline. The tourniquet was deflated and hemostasis was obtained with electrocautery and IV tranexamic acid, 1 g given prior to inflation of the tourniquet and another gram given at the time of closure. Closure was with #2 PDS in the fascia and supplemented with #2 Quill, 2-0 Vicryl suture was used for the subcutaneous tissues and 3-0 Quill for the skin. Dermabond was then applied along with Optefoam dressing. A lightly compressive dressing was applied using Webril and an Delvis wrap. The patient was then transferred to stretcher and taken to the recovery room in stable condition. Sponge and needle counts were correct.
[2023-02-20] MEDS ORDERED: HYDROmorphone 0.5 MG/0.5 ML SYRINGE IVP PRN ×2 (17:38)
[2023-02-20] MEDS ORDERED: ONDANSETRON 4 MG/2 ML VIAL IVP PRN (17:38)
[2023-02-20] MEDS ORDERED: MAGNESIUM HYDROXIDE 2,400 MG/10 ML CUP PO PRN (17:38)
[2023-02-20] MEDS ORDERED: bisacodyL 10 MG SUPP RECTAL PRN (17:38)
[2023-02-20] MEDS ORDERED: HYDROcodone/APAP 5-325MG 1 EACH TAB PO PRN (17:38)
[2023-02-20] MEDS ORDERED: NALOXONE 0.4 MG/ML 1 ML VIAL IV PRN (17:38)
[2023-02-20] MEDS ORDERED: NA PHOS,M-B/NA PHOS,DI-BA 133 ML ENEMA RECTAL PRN (17:38)
--- NOTE | 2023-02-20 18:26 | XR ---
EXAMINATION TYPE: XR knee limited LT DATE OF EXAM: 02/20/2023 COMPARISON: None HISTORY: Postop knee TECHNIQUE: 2 view left knee FINDINGS: Tibial femoral components have been placed. No acute fracture or dislocation is evident. Po stsurgical changes are through the soft tissues. IMPRESSION: 1. No acute fractures post knee replacement.
[2023-02-20 20:23] LABS: Glucose,Whole Blood 219 mg/dL (70-110)
[2023-02-20] MEDS: SENNOSIDES-DOCUSATE SODIUM 1 EACH TAB PO SCH (20:26)
[2023-02-20] MEDS: HYDROcodone/APAP 5-325MG 1 EACH TAB PO PRN (20:26)
[2023-02-20] MEDS: APIXABAN 2.5 MG TABLET PO SCH (20:26)
[2023-02-20] MEDS ORDERED: ASPIRIN 81 MG PO SCH (21:00)
[2023-02-20] MEDS ORDERED: GABAPENTIN 300 MG CAP PO PRN (21:40)
[2023-02-20] MEDS ORDERED: FAMOTIDINE 20 MG TAB PO PRN (21:40)
[2023-02-20] MEDS ORDERED: TEMAZEPAM 15 MG CAP PO PRN (22:00)
--- NOTE | 2023-02-20 23:08 | P.CONS ---
History of Present Illness - Reason for Consult Consult date: 02/20/23 Medical management Requesting physician: Gavino Goodman - Chief Complaint Left knee surgery - History of Present Illness This is a pleasant 67-year-old patient follows with Dr. Byrne. Chronic stable medical conditions include atrial fibrillation, diabetes, DVT, GERD, hypertension, hyperlipidemia, osteoarthritis, lung cancer treated with chemo and surgery now being followed up for the sport in the lung felt to be cancer less likely, endometrial cancer with radiation surgery, atrial fibrillation in remission DVT/PE at the age of 23, anxiety depression Patient has undergone surgery of the left knee. Postprocedure mild nausea. No dizziness no lightheadedness. Review of systems: GEN.: None EYES: None HEENT: None NECK: None RESPIRATORY: None CARDIOVASCULAR: None GASTROINTESTINAL: None GENITOURINARY: None MUSCULOSKELETAL: Joint pains LYMPHATICS: None HEMATOLOGICAL: None PSYCHIATRY: None NEUROLOGICAL: None Past medical history to include: Paroxysmal atrial fibrillation, diabetes, DVT and PE at the age of 23, GERD, hypertension, hyperlipidemia, osteoporosis, lung cancer treated with surgery and chemotherapy and endometrial cancer treated with radiation surgery, diabetes mellitus borderline, anxiety depression Social history: No smoking. Alcohol occasionally. Physical examination: VITAL SIGNS: Afebrile, 76, 16, 131/75, 97% room air] GENERAL: BMI 36.1, declining but awake comfortable. EYES: Pupils equal. Conjunctiva normal. HEENT: External appearance of nose and ears normal, oral cavity grossly normal. NECK: JVD not raised; masses not palpable. HEART: First and second heart sounds are normal; no edema. LUNGS: Respiratory rate normal; clear to auscultation. ABDOMEN: Soft, nontender, liver spleen not palpable, no masses palpable. PSYCH: Alert and oriented x3; mood and affect normal. MUSCULOSKELETAL:No Clubbing/cyanosis;muscles-grossly intact. OA. Dressing over the left knee. With Delvis wrap NEUROLOGICAL: Cranial nerves grossly intact; no facial asymmetry, power and sensation grossly intact. LYMPHATICS: No lymph nodes palpable in the axilla and neck INVESTIGATIONS, reviewed in the clinical context: 02/02/2023: WBC 7.1 hemoglobin 12.9 platelets 252 sodium 141 potassium 4.4 creatinine 0 point Assessment and plan: -Left knee cemented total hip replacement arthroplasty, for severe arthritic Eliquis for DVT prophylaxis -Hyperlipidemia Simvastatin 80 mg daily at bedtime -GERD Pepcid -Depression Zoloft 100 mg daily -Primary osteoarthritis Indomethacin -Obesity BMI 36.1 Weight loss measures -History of lung cancer and intermittent chill cancer. -Right lung nodule being followed outpatient. Home medications reviewed. Care was discussed the patient and questions answered. Activity per orthopedics. Thank you Dr. Goodman Past Medical History Past Medical History: Atrial Fibrillation, Cancer, Diabetes Mellitus, Deep Vein Thrombosis (DVT), GERD/Reflux, Hyperlipidemia, Hypertension, Osteoarthritis (OA), Pulmonary Embolus (PE) Additional Past Medical History / Comment(s): HX lung-had surg. & chemo and endometrial CANCER-had radiation & surg., past hx. of a-fib-not current, urinary frequency,. HAD DVT LT LEG THAT TURNED INTO PE AT AGE 23. DIABETIC ONLY BORDERLINE. chronic back pain History of Any Multi-Drug Resistant Organisms: None Reported Past Surgical History: Cholecystectomy, Hysterectomy, Orthopedic Surgery Additional Past Surgical History / Comment(s): RT KNEE SX, tera cataracts removed, tera CTS,. LT KNEE SX-NO KNEE CAP. COLONOSCOPY. LUNG SX / OF RT LOWER LUNG REMOVED R/T CANCER. PAIN CLINIC PROCEDURE Past Anesthesia/Blood Transfusion Reactions: No Reported Reaction Smoking Status: Never smoker - Past Family History Mother History Unknown: Yes Additional Family Medical History / Comment(s): PT ADOPTED-FAMILY HHX UNKNOWN Medications and Allergies Home Medications Medication Instructions Recorded Confirmed Type Cholecalciferol [Vitamin D3] 2,000 unit PO DAILY 04/06/17 02/15/23 History Cinnamon Bark [Cinnamon] 1,000 mg PO BID 04/06/17 02/15/23 History Etodolac 500 mg PO BID 04/06/17 02/15/23 History Sertraline [Zoloft] 100 mg PO QAM 04/06/17 02/20/23 History Simvastatin 80 mg PO HS 04/06/17 02/20/23 History Triamterene/Hydrochlorothiazid 1 each PO DAILY 04/06/17 02/20/23 History [Triamterene-Hctz 37.5-25 mg Tb] Vitamin B Complex 1 each PO DAILY 04/06/17 02/15/23 History [place]-3 Fatty Acids/Fish Oil [Fish 1 each PO DAILY 05/20/21 02/15/23 History Oil 1,000 mg Softgel] Famotidine [Pepcid AC] 10 mg PO BID PRN 07/22/21 02/20/23 History Gabapentin [Neurontin] 300 mg PO TID PRN 11/23/22 02/20/23 History traMADol HCL 50 mg PO Q6H PRN 11/23/22 02/20/23 History Apixaban [Eliquis] 2.5 mg PO BID #60 tab 02/20/23 Rx HYDROcodone/APAP 7.5-325MG [[place] 1 - 2 tab PO Q6HR PRN #32 tab 02/20/23 Rx 7.5-325] Sennosides-Docusate Sodium 1 tab PO BID #60 tablet 02/20/23 Rx [Senokot-S] Allergies Allergy/AdvReac Type Severity Reaction Status Date / Time No Known Allergies Allergy Verified 02/20/23 13:41 Physical Exam Vitals: Vital Signs Temp Pulse Pulse Pulse Resp BP Pulse Ox 02/20/23 21:31 76 16 131/75 97 02/20/23 21:16 78 16 146/76 94 L 02/20/23 20:46 78 16 147/76 97 02/20/23 20:31 71 148/76 98 02/20/23 20:16 74 151/77 98 02/20/23 19:46 70 152/75 98 02/20/23 19:31 72 150/82 98 02/20/23 19:16 68 152/78 98 02/20/23 19:01 64 16 139/69 96 02/20/23 18:32 72 16 110/57 95 02/20/23 18:15 65 16 117/58 97 02/20/23 18:00 64 16 118/61 97 02/20/23 17:45 72 16 113/55 98 02/20/23 17:30 97.5 F L 66 16 119/59 97 02/20/23 14:47 72 16 137/62 98 02/20/23 14:01 98.0 F 87 18 162/66 96 Intake and Output 02/20/23 02/20/23 02/21/23 14:59 22:59 06:59 Intake Total 950 51 Output Total 320 Balance 950 -269 Intake: IV 950 51 Output: Urine 220 Estimated Blood Loss 100 Other: Weight 107.8 kg 107.8 kg Results Labs: Abnormal Lab Results - Last 24 Hours (Table) 02/20/23 02/20/23 Range/Units 14:11 20:17 POC Glucose (mg/dL) 127 H 219 H (70-110) mg/dL
[2023-02-21] MEDS: HYDROmorphone 0.5 MG/0.5 ML SYRINGE IVP PRN ×2 (00:12→09:07)
[2023-02-21] MEDS: HYDROcodone/APAP 5-325MG 1 EACH TAB PO PRN ×3 (05:19→19:03)
[2023-02-21] MEDS: LACTATED RINGERS 1,000 ML IV SCH ×3 (05:19→11:31)
[2023-02-21 06:16] LABS: Glucose,Whole Blood 171 mg/dL (70-110)
--- NOTE | 2023-02-21 07:05 | P.PN ---
Progress Note - Text Progress Note Date: 02/21/23 Patient doing well overall. Pain /10. Ambulating. Denies weakness. Adductor canal catheter site clean and dry. A/P POD#1 s/p L TKA - continue multimodal analgesia
[2023-02-21] MEDS: CHOLECALCIFEROL 25 MCG (1000 IU) TABLET PO SCH (08:39)
[2023-02-21] MEDS: APIXABAN 2.5 MG TABLET PO SCH ×2 (08:39→21:20)
[2023-02-21] MEDS: FOLIC ACID-VIT B COMPLEX-VIT C 1 CAP PO SCH (08:40)
[2023-02-21] MEDS: SERTRALINE 100 MG TAB PO SCH (08:40)
[2023-02-21] MEDS ORDERED: MELOXICAM 7.5 MG TAB PO SCH (09:00)
[2023-02-21 11:09] LABS: Glucose,Whole Blood 169 mg/dL (70-110)
--- NOTE | 2023-02-21 11:40 | P.PN ---
Subjective Progress Note Date: 02/21/23 This is a 67-year-old female who is status post left total knee arthroplasty. This is postoperative day #1 and patient is seen and evaluated at bedside today. Patient states that she was able to work with physical therapy today and she denies any new complaints. Objective - Vital Signs Vital signs: Vital Signs Temp 98.2 F 02/21/23 07:09 Pulse 75 02/21/23 10:35 Resp 18 02/21/23 10:35 BP 124/60 02/21/23 07:09 Pulse Ox 91 L 02/21/23 07:09 FiO2 Intake & Output 02/20/23 02/21/23 02/21/23 18:59 06:59 18:59 Intake Total 1001 200 Output Total 100 820 550 Balance 901 -820 -350 Weight 107.8 kg Intake: IV 1001 Oral 200 Output: Urine 820 550 Estimated Blood Loss 100 Other: Voiding Method Bedside Commode Bedside Commode - Exam On exam patient is lying comfortably in bed in no acute distress. Patient is alert and oriented x3. Dressing is clean, dry and intact. No drainage. No e rythema. Calf is soft and nontender to palpation. Sensation intact. Patient has full range of motion of the foot and ankle. Neurovascular status and circulatory status are intact. - Labs Labs: Abnormal Lab Results - Last 24 Hours (Table) 02/20/23 02/20/23 02/21/23 Range/Units 14:11 20:17 06:14 POC Glucose (mg/dL) 127 H 219 H 171 H (70-110) mg/dL 02/21/23 Range/Units 11:07 POC Glucose (mg/dL) 169 H (70-110) mg/dL Assessment and Plan (1) S/P total knee arthroplasty Current Visit: Yes Status: Acute Code(s): Z96.659 - PRESENCE OF UNSPECIFIED ARTIFICIAL KNEE JOINT SNOMED Code(s): 4177463783528 (2) Osteoarthritis of left knee Current Visit: Yes Status: Acute Code(s): M17.12 - UNILATERAL PRIMARY OSTEOARTHRITIS, LEFT KNEE SNOMED Code(s): 302613298264884 Plan: 1.The patient may be weightbearing as tolerated. 2. Please keep dressing intact for 7 days. 3. Continue physical therapy and pain control. 4. Anticoagulation with Eliquis. 5. Appreciate input from internal medicine. 6. Anticipate discharge home with home care tomorrow.
[2023-02-21 12:02] LABS: Basophils # (A) 0.02 X 10*3/uL (0.00-0.10); Basophils % (A) 0.2 %; Eosinophils # (A) 0 X 10*3/uL (0.04-0.35); Eosinophils % (A) 0 %; HCT 34.1 % (37.2-46.3); HGB 11.2 g/dL (12.0-15.0); Immature Grans, Automated 0.4 %; Lymphocytes # (A) 0.86 X 10*3/uL (0.90-5.00); Lymphocytes % (A) 6.8 %; MCH 30.2 pg (27.0-32.0); MCHC 32.8 g/dL (32.0-37.0); MCV 91.9 fL (80.0-97.0); Mean Platelet Volume 11.3 fL (9.5-12.2); Monocytes # (A) 1.25 X 10*3/uL (0.20-1.00); Monocytes % (A) 9.9 %; NRBC Per 100 WBC 0 /100 WBCS (0.0-0.0); Neutrophils # (A) 10.48 X 10*3/uL (1.80-7.70); Neutrophils % (A) 82.7 %; Platelet Count 181 X 10*3/uL (140-440); RBC 3.71 X 10*6/uL (4.10-5.20); RDW 12.1 % (11.5-14.5); WBC 12.66 X 10*3/uL (4.50-10.00)
[2023-02-21 16:55] LABS: Glucose,Whole Blood 180 mg/dL (70-110)
--- NOTE | 2023-02-21 20:42 | P.PN ---
Progress Note - Text Progress Note Date: 02/21/23 - Chief Complaint Left knee surgery - History of Present Illness This is a pleasant 67-year-old patient follows with Dr. Byrne. Chronic stable medical conditions include atrial fibrillation, diabetes, DVT, GERD, hypertension, hyperlipidemia, osteoarthritis, lung cancer treated with chemo and surgery now being followed up for the sport in the lung felt to be cancer less likely, endometrial cancer with radiation surgery, atrial fibrillation in remission DVT/PE at the age of 23, anxiety depression Patient has undergone surgery of the left knee. Postprocedure mild nausea. No dizziness no lightheadedness. February 21: Up in that is tender. Pain at the operative site. Vomited once in the morning. Diet discussed. Breathing stable. Working with therapy. Active Medications Hydrocodone Bitart/Acetaminophen (Hydrocodone/Apap 5-325mg 1 Each Tab) 1 each PO Q6HR PRN PRN Reason: Pain Scale 1 to 5 Stop: 03/22/23 17:39 Hydrocodone Bitart/Acetaminophen (Hydrocodone/Apap 5-325mg 1 Each Tab) 2 each PO Q6HR PRN PRN Reason: Pain Scale 6 to 10 Stop: 03/22/23 17:39 Last Admin: 02/21/23 19:03 Dose: 2 each Apixaban (Apixaban 2.5 Mg Tablet) 2.5 mg PO BID [facility]; Protocol Stop: 03/22/23 21:01 Last Admin: 02/21/23 08:39 Dose: 2.5 mg Atorvastatin Calcium (Atorvastatin 40 Mg Tab) 40 mg PO [facility] Bisacodyl (Bisacodyl 10 Mg Supp) 10 mg RECTAL DAILY PRN PRN Reason: Constipation Stop: 03/22/23 17:39 Cholecalciferol (Cholecalciferol 25 Mcg (1000 Iu) Tablet) 50 mcg PO DAILY [facility]ISA Last Admin: 02/21/23 08:39 Dose: 50 mcg Ropivacaine 1,100 mg/ Sodium Chloride 330 ml/ Bandage/Support Products 1 each 0 mg MISCELLANE Q2H PRN PRN Reason: Breakthrough Pain Stop: 03/22/23 16:20 Last Admin: 02/20/23 17:45 Dose: 1,100 mg Famotidine (Famotidine 20 Mg Tab) 10 mg PO BID PRN PRN Reason: Heartburn Gabapentin (Gabapentin 300 Mg Cap) 300 mg PO TID PRN PRN Reason: Pain Hydromorphone HCl (Hydromorphone 0.5 Mg/0.5 Ml Syringe) 0.125 mg IVP Q3HR PRN PRN Reason: Pain Scale 1 to 3 Stop: 03/22/23 17:39 Hydromorphone HCl (Hydromorphone 0.5 Mg/0.5 Ml Syringe) 0.5 mg IVP Q3HR PRN PRN Reason: Pain Scale 7 to 10 Stop: 03/22/23 17:39 Last Admin: 02/21/23 09:07 Dose: 0.5 mg Hydromorphone HCl (Hydromorphone 0.5 Mg/0.5 Ml Syringe) 0.25 mg IVP Q3HR PRN PRN Reason: Pain Scale 4 to 6 Stop: 03/22/23 17:39 Lactated Ringer's (Lactated Ringers) 1,000 mls @ 20 mls/hr IV .Q24H [facility] Stop: 03/22/23 07:14 Last Admin: 02/21/23 08:03 Dose: Not Given Lactated Ringer's (Lactated Ringers) 1,000 mls @ 100 mls/hr IV .Q10H [facility] Stop: 03/22/23 17:46 Last Admin: 02/21/23 11:31 Dose: Not Given Lidocaine HCl (Lidocaine 1% (10mg/Ml) For Iv Start) 0.1 ml INTRADERMA PER PROTOCOL PRN PRN Reason: IV Start Stop: 03/22/23 07:14 Last Admin: 02/20/23 14:14 Dose: 0.1 ml Magnesium Hydroxide (Magnesium Hydroxide 2,400 Mg/10 Ml Cup) 2,400 mg PO DAILY PRN PRN Reason: Constipation Stop: 03/22/23 17:39 Multivit/Ca Carb/B Cmplx/FA/Prenat (Folic Acid-Vit B Complex-Vit C 1 Cap) 1 each PO DAILY [facility] Last Admin: 02/21/23 08:40 Dose: 1 each Naloxone HCl (Naloxone 0.4 Mg/Ml 1 Ml Vial) 0.2 mg IV Q2M PRN PRN Reason: Opioid Reversal Stop: 03/22/23 17:39 Ondansetron HCl (Ondansetron 4 Mg/2 Ml Vial) 4 mg IVP Q8HR PRN PRN Reason: Nausea And Vomiting Stop: 03/22/23 17:39 Last Admin: 02/21/23 11:52 Dose: 4 mg Senna/Docusate Sodium (Sennosides-Docusate Sodium 1 Each Tab) 2 each PO HS [facility] Stop: 03/22/23 21:01 Last Admin: 02/20/23 20:26 Dose: 2 each Sertraline HCl (Sertraline 100 Mg Tab) 100 mg PO QAM [facility] Last Admin: 02/21/23 08:40 Dose: 100 mg Sodium Biphosphate/Sodium Phosphate (Na Phos,M-B/Na Phos,Di-Ba 133 Ml Enema) 133 ml RECTAL DAILY PRN PRN Reason: Constipation Stop: 03/22/23 17:39 Temazepam (Temazepam 15 Mg Cap) 15 mg PO 2200 PRN PRN Reason: Insomnia Stop: 03/22/23 22:01 Past medical history to include: Paroxysmal atrial fibrillation, diabetes, DVT and PE at the age of 23, GERD, hypertension, hyperlipidemia, osteoporosis, lung cancer treated with surgery and chemotherapy and endometrial cancer treated with radiation surgery, diabetes mellitus borderline, anxiety depression Social history: No smoking. Alcohol occasionally. Physical examination: VITAL SIGNS: 99.2, 86, 16, 144/66, 93% room air GENERAL: BMI 36.1, up in a recliner EYES: Pupils equal. Conjunctiva normal. HEENT: External appearance of nose and ears normal, oral cavity grossly normal. NECK: JVD not raised; masses not palpable. HEART: First and second heart sounds are normal; no edema. LUNGS: Respiratory rate normal; clear to auscultation. ABDOMEN: Soft, nontender, liver spleen not palpable, no masses palpable. PSYCH: Alert and oriented x3; mood and affect normal. MUSCULOSKELETAL:No Clubbing/cyanosis;muscles-grossly intact. OA. Dressing over the left knee. INVESTIGATIONS, reviewed in the clinical context: February 21: White count 12.6 hemoglobin 11.2 platelets 181 02/02/2023: WBC 7.1 hemoglobin 12.9 platelets 252 sodium 141 potassium 4.4 creatinine 0 point Assessment and plan: -Left knee cemented total hip replacement arthroplasty, for severe arthritic Eliquis for DVT prophylaxis -Hyperlipidemia Simvastatin 80 mg daily at bedtime -GERD Pepcid -Depression Zoloft 100 mg daily -Primary osteoarthritis Indomethacin -Obesity BMI 36.1 Weight loss measures -History of lung cancer and intermittent chill cancer. -Right lung nodule being followed outpatient. . Care was discussed the patient and questions answered. Activity per PT OT Thank you Dr. Goodman
[2023-02-21 20:55] LABS: Glucose,Whole Blood 216 mg/dL (70-110)
[2023-02-21] MEDS ORDERED: ATORVASTATIN 40 MG TAB PO SCH (21:00)
[2023-02-21] MEDS: SENNOSIDES-DOCUSATE SODIUM 1 EACH TAB PO SCH (21:20)
[2023-02-22] MEDS: HYDROcodone/APAP 5-325MG 1 EACH TAB PO PRN (03:27)
[2023-02-22 06:08] LABS: Glucose,Whole Blood 165 mg/dL (70-110)
[2023-02-22 07:12] VITALS: BP 100/60; PULSE 78; RESP 16; TEMP 98.1
--- NOTE | 2023-02-22 07:30 | P.DS ---
Providers Date of admission: 02/21/23 14:37 Expected date of discharge: 02/22/23 Attending physician: Gavino Goodman Consults: 02/20/23 18:53 Consult Physician Routine Consulting Provider: Abel Genao Consult Reason/Comments: medical management Do you want consulting provider notified?: Yes Primary care physician: Camron Byrne - Discharge Diagnosis(es) (1) History of pulmonary embolism Current Visit: Yes Status: Acute (2) Osteoarthritis of left knee Current Visit: Yes Status: Acute (3) S/P total knee arthroplasty Current Visit: Yes Status: Acute Hospital Course: This is a 67-year-old female who was last seen with complaint of continued left knee pain. The patient has a known history of degenerative arthritis of the left knee and presents to discuss surgical options. After discussion and consideration the patient elects to proceed with total left knee arthroplasty. The patient is seen preoperatively by her primary care physician and cleared for surgery. The patient is admitted to [facility] for total left knee arthroplasty. The procedures performed without complication or sequelae. He is doing well postoperatively. Vital signs are stable at discharge. Labs are stable at discharge. the patient is ambulating well with walker with minimal assistance. The patient is discharged to home on postop day #2 pending medical clearance. Please see orders and refer to the med rec for accurate list of medications. Patient Condition at Discharge: Good Plan - Discharge Summary Discharge Rx Participant: Yes New Discharge Prescriptions: New Apixaban [Eliquis] 2.5 mg PO BID #60 tab Sennosides-Docusate Sodium [Senokot-S] 1 tab PO BID #60 tablet HYDROcodone/APAP 7.5-325MG [[place] 7.5-325] 1 - 2 tab PO Q6HR PRN #32 tab PRN Reason: Pain No Action Cholecalciferol [Vitamin D3] 2,000 unit PO DAILY Sertraline [Zoloft] 100 mg PO QAM Vitamin B Complex 1 each PO DAILY Triamterene/Hydrochlorothiazid [Triamterene-Hctz 37.5-25 mg Tb] 1 each PO DAILY Simvastatin 80 mg PO HS Etodolac 500 mg PO BID Cinnamon Bark [Cinnamon] 1,000 mg PO BID [place]-3 Fatty Acids/Fish Oil [Fish Oil 1,000 mg Softgel] 1 each PO DAILY Famotidine [Pepcid AC] 10 mg PO BID PRN PRN Reason: Heartburn traMADol HCL 50 mg PO Q6H PRN PRN Reason: Pain Gabapentin [Neurontin] 300 mg PO TID PRN PRN Reason: Pain Discharge Medication List Cholecalciferol [Vitamin D3] 2,000 unit PO DAILY 04/06/17 [History] Cinnamon Bark [Cinnamon] 1,000 mg PO BID 04/06/17 [History] Etodolac 500 mg PO BID 04/06/17 [History] Sertraline [Zoloft] 100 mg PO QAM 04/06/17 [History] Simvastatin 80 mg PO HS 04/06/17 [History] Triamterene/Hydrochlorothiazid [Triamterene-Hctz 37.5-25 mg Tb] 1 each PO DAILY 04/06/17 [History] Vitamin B Complex 1 each PO DAILY 04/06/17 [History] [place]-3 Fatty Acids/Fish Oil [Fish Oil 1,000 mg Softgel] 1 each PO DAILY 05/20/21 [History] Famotidine [Pepcid AC] 10 mg PO BID PRN 07/22/21 [History] Gabapentin [Neurontin] 300 mg PO TID PRN 11/23/22 [History] traMADol HCL 50 mg PO Q6H PRN 11/23/22 [History] Apixaban [Eliquis] 2.5 mg PO BID #60 tab 02/20/23 [Rx] HYDROcodone/APAP 7.5-325MG [[place] 7.5-325] 1 - 2 tab PO Q6HR PRN #32 tab 02/20 [Rx] Sennosides-Docusate Sodium [Senokot-S] 1 tab PO BID #60 tablet 02/20/23 [Rx] Follow up Appointment(s)/Referral(s): Mckenna Reynolds PAC [PHYSICIAN [employer]] - 2 Weeks [facility], [NON-STAFF] - ([facility] will call you to arrange a visit) Activity/Diet/Wound Care/Special Instructions: May bear wt as tolerated. Remove stocking and clementine wrap 48h post op. Keep Optifoam dressing intact and remove 7 days post op. May shower 48h post op. Discharge Disposition: HOME WITH HOME HEALTH SERVICES
[2023-02-22] MEDS: LACTATED RINGERS 1,000 ML IV SCH ×3 (09:00→10:31)
[2023-02-22] MEDS: APIXABAN 2.5 MG TABLET PO SCH (09:13)
[2023-02-22] MEDS: CHOLECALCIFEROL 25 MCG (1000 IU) TABLET PO SCH (09:13)
[2023-02-22] MEDS: FOLIC ACID-VIT B COMPLEX-VIT C 1 CAP PO SCH (09:13)
[2023-02-22] MEDS: SERTRALINE 100 MG TAB PO SCH (09:13)
[2023-02-22 11:15] LABS: Glucose,Whole Blood 172 mg/dL (70-110)
== END 2023-02-22 13:31 | disposition home health service (06) ==
LOC: OR 13:12 → 4SSUR 17:50 → OR 02-21 14:37 → 4SSUR 02-21 14:37
PROVIDERS: ADMIT Orthopaedic Surgery; ATTEND Orthopaedic Surgery
DX: M17.12 Unilateral primary osteoarthritis, left knee (principal); M21.162 Varus deformity, not elsewhere classified, left knee; R73.03 Prediabetes; I48.0 Paroxysmal atrial fibrillation; K21.9 Gastro-esophageal reflux disease without esophagitis; E78.5 Hyperlipidemia, unspecified; I10 Essential (primary) hypertension; M81.0 Age-related osteoporosis without current pathological fracture; G47.33 Obstructive sleep apnea (adult) (pediatric); Z68.36 Body mass index [BMI] 36.0-36.9, adult; E66.9 Obesity, unspecified; R91.1 Solitary pulmonary nodule; G89.29 Other chronic pain; M54.9 Dorsalgia, unspecified; F32.A Depression, unspecified; F41.9 Anxiety disorder, unspecified; Z92.21 Personal history of antineoplastic chemotherapy; Z85.42 Personal history of malignant neoplasm of other parts of uterus; Z92.3 Personal history of irradiation; Z86.718 Personal history of other venous thrombosis and embolism; Z86.711 Personal history of pulmonary embolism; Z85.118 Personal history of other malignant neoplasm of bronchus and lung; Z90.49 Acquired absence of other specified parts of digestive tract; Z90.710 Acquired absence of both cervix and uterus; Z98.42 Cataract extraction status, left eye; Z98.41 Cataract extraction status, right eye; Z97.3 Presence of spectacles and contact lenses; Z98.890 Other specified postprocedural states
CPT/HCPCS: 97116; 97161; 64999; 64448; 76942; 85025; 73560; 27447; G0378 ×2; C1713; C1776; C1751; J2250; J1100; J0690 ×3; J2405 ×2; J3010; J2795; J1170; 88305; 88311

== ENCOUNTER → 2023-02-24 | Outpatient (CLI) | payer MEDICARE ==
--- NOTE | 2023-02-24 13:40 | US ---
EXAMINATION TYPE: US venous doppler duplex LE LT DATE OF EXAM: 02/24/2023 1:04 PM COMPARISON: NONE CLINICAL HISTORY: I80.9 PHLEBITIS AND THROMBOPHLEBITIS OF UNSP,M25.562, M17.12. Pain and edema post o p knee surgery SIDE PERFORMED: Left TECHNIQUE: The lower extremity deep venous system is examined utilizing real time linear array sonog david with graded compression, doppler sonography and color-flow sonography. VESSELS IMAGED: Common Femoral Vein Deep Femoral Vein Greater Saphenous Vein * Femoral Vein Popliteal Vein Small Saphenous Vein * Proximal Calf Veins (* superficial vessels) Left Leg: Negative for DVT IMPRESSION: Grayscale, color doppler, spectral doppler imaging performed of the deep veins of the lo wer extremities. There is normal flow, compressibility, vascular waveforms.
== END | disposition home or self-care (01) ==
LOC: RADUSWWP 12:41
PROVIDERS: ATTEND Orthopaedic Surgery
DX: M17.12 Unilateral primary osteoarthritis, left knee (principal); I80.9 Phlebitis and thrombophlebitis of unspecified site

== ENCOUNTER → 2023-03-03 | Outpatient (CLI) | payer MEDICARE ==
[2023-03-03 19:38] LABS: % Iron Saturation 12.46 (12.00-45.00); Anion Gap 13.3 mmol/L (10.00-18.00); BUN/Creat Ratio 17.36 Ratio (12.00-20.00); Blood Urea Nitrogen 11.7 mg/dL (9.0-27.0); Calcium 10.6 mg/dL (8.7-10.3); Carbon Dioxide 25.9 mmol/L (20.0-27.5); Non-African American GFR(CKD) 91.4 (60.0-200.0); Potassium 4.4 mmol/L (3.5-5.5)
[2023-03-03 20:46] LABS: Basophils # (A) 0.08 X 10*3/uL (0.00-0.10); Basophils % (A) 0.8 %; Eosinophils # (A) 0.16 X 10*3/uL (0.04-0.35); Eosinophils % (A) 1.7 %; HCT 36.4 % (37.2-46.3); HGB 11.5 g/dL (12.0-15.0); Immature Grans, Automated 1.1 %; Lymphocytes # (A) 1.94 X 10*3/uL (0.90-5.00); MCH 29.8 pg (27.0-32.0); MCHC 31.6 g/dL (32.0-37.0); MCV 94.3 fL (80.0-97.0); Mean Platelet Volume 9.8 fL (9.5-12.2); Monocytes # (A) 0.67 X 10*3/uL (0.20-1.00); Monocytes % (A) 6.9 %; NRBC Per 100 WBC 0 /100 WBCS (0.0-0.0); Neutrophils # (A) 6.72 X 10*3/uL (1.80-7.70); Neutrophils % (A) 69.5 %; Platelet Count 454 X 10*3/uL (140-440); RBC 3.86 X 10*6/uL (4.10-5.20); RDW 12.3 % (11.5-14.5); WBC 9.68 X 10*3/uL (4.50-10.00)
== END | disposition home or self-care (01) ==
LOC: LABWHC1 10:38
PROVIDERS: ATTEND Family Medicine
DX: I10 Essential (primary) hypertension (principal); D64.9 Anemia, unspecified
CPT/HCPCS: 36415; 80048; 82728; 83540; 83550; 85025

== ENCOUNTER → 2023-03-16 | Outpatient (CLI) | payer MEDICARE ==
[2023-03-16 21:04] LABS: HCT 38.2 % (37.2-46.3); HGB 12.1 g/dL (12.0-15.0); MCH 29.4 pg (27.0-32.0); MCHC 31.7 g/dL (32.0-37.0); MCV 92.7 fL (80.0-97.0); Mean Platelet Volume 10.7 fL (9.5-12.2); NRBC Per 100 WBC 0 /100 WBCS (0.0-0.0); Platelet Count 347 X 10*3/uL (140-440); RBC 4.12 X 10*6/uL (4.10-5.20); RDW 12.5 % (11.5-14.5); WBC 7.34 X 10*3/uL (4.50-10.00)
[2023-03-17 01:20] LABS: Appearance,Urine Turbid (Clear); Bacteria,Urine Trace /HPF (None Seen); Bilirubin,Urine Negative (Negative); Blood,Urine Negative (Negative); Color,Urine Yellow (Yellow); Ketones,Urine Negative (Negative); Nitrite,Urine Negative (Negative); PH, Urine 7.5 (5.0-8.0); Specific Gravity,Urine 1.018 (1.001-1.030); Urobilinogen,Urine 0.2 (0.2,1.0)
== END | disposition home or self-care (01) ==
LOC: LABWHC1 14:43
PROVIDERS: ATTEND Family Medicine
DX: E83.52 Hypercalcemia (principal); I10 Essential (primary) hypertension; R30.0 Dysuria
CPT/HCPCS: 36415; 81001; 82272; 82310; 85027; 87086

== ENCOUNTER → 2023-05-04 | Outpatient (CLI) | payer MEDICARE ==
--- NOTE | 2023-05-04 15:53 | NM ---
EXAMINATION TYPE: NM bone scan whole body DATE OF EXAM: 05/04/2023 COMPARISON: NONE CLINICAL INDICATION: Female, 68 years old with history of Z85.18; Delayed whole-body scanning was performed following the injection of 22.2 mCi Tc 99m MDP. Images acq uired 4 hours post injection. FINDINGS: There is intense uptake involving the middle one third of the left femoral diaphysis as well as a sma ll focal area more distally. Radiographic correlation is recommended to exclude fracture or underlyin g bone lesion. There is evidence of total left knee arthroplasty. Advanced degenerative uptake is see n about the right knee. There is also degenerative uptake about the shoulders, sternoclavicular joint s, ankles feet and left great toe. Degenerative uptake is seen about the hands and wrists. IMPRESSION: There is intense uptake involving the middle one third of the left femoral diaphysis as well as a sma ll focal area more distally. Radiographic correlation is recommended to exclude fracture or underlyin g bone lesion.
== END | disposition home or self-care (01) ==
LOC: RADNMMAIN 09:54
PROVIDERS: ATTEND Orthopaedic Surgery
DX: M86.8X5 Other osteomyelitis, thigh (principal); M25.562 Pain in left knee; M79.645 Pain in left finger(s); Z47.1 Aftercare following joint replacement surgery; Z96.652 Presence of left artificial knee joint
CPT/HCPCS: 78306; A9503

== ENCOUNTER → 2023-05-08 | Outpatient (CLI) | payer MEDICARE ==
[2023-05-08 08:01] VITALS: BP 146/70; PULSE 85; RESP 17; TEMP 98.1
--- NOTE | 2023-05-08 14:19 | P.PAINPG ---
PQRS Measure Charge Sheet Comment: A 68 yr old female with a history of severe and chronic LBP secondary to lumbar DDD and spondylosis with facet arthropathy without myelopathy presents today for evaluation s/p ASHLEY L5-S1. Pt states she experienced 100 % pain relief x 5 mo s/p procedure. Pain level is provoked at 8 /10 in intensity, constant, localized in the lumbar spine, stabbing in character w/o shooting pain. Pain is provoked by prolonged activity for periods of 30 min or more. Pain is alleviated with physician guided home exercises and stretches daily x 3 yrs, chiropractic treatments monthly x 3 yrs, heat, ice, medications, topical, walking/stretching, repositioning and rest. Interventional pain procedures completed include ASHLEY L5-S1, T6-T7 Patient is currently on Ibu Patient denies any side effects of the medication(s), denies excessive drowsiness or sleepiness, denies suicidal ideation and reports that the current pain medication is helping to control the pain and improve activities of daily living. Patient denies any motor or sensory deficits. Patient denies any fever or night sweats, denies any change in the bowel movements or urination. Physical Examination: -Constitutional: Cooperative. Not in acute distress . - Neurologic: Cranial nerve II to XII intact. No focal neurological deficits. - Psychatric: Alert & oriented x 3. Matching mood & appropriate affect. Judgment and insight intact. - Musculoskeletal: Cervical spine: Muscle bulk/ tone/ strength in the bilateral upper extremities normal Vertebral body tenderness to palpation over Spurling test positive Distraction test positive Facet loading test positive TTP Thoracic spine Muscle bulk / tone/ strength in the bilateral paraspinal muscles normal Vertebral body tender to palpation over Facet loading test positive TTP Lumbar spine: Motor bulk/ tone/ strength lower extremities , thigh and legs : 5/5 Deep tendon reflexes : Normal Knee Jerk. Normal Ankle Jerk . Vertebral body tenderness to palpation over L5 Abreu Test positive Lumbar Facet Loading Test positive Straight Leg Raise: positive at 30 degrees right side/ left side Gaenslen's Test positive Sacral spine : Severe tenderness over the Sacroiliac joint: right side / left side Range of motion: Flexion of the lumbar spine <60 degrees Range of motion: Extension of the lumbar spine <20 degrees Gaenslen's Test positive right side / left side Reed test: positive right side / left side Thigh Thrust Test positive right side / left side Sacral Thrust Test positive right side / left side Assessment and plan: Chronic LBP secondary to lumbar DDD, spondylosis with facet arthropathy without myelopathy Recommendation of ASHLEY L5-S1. May need a series of injections for optimal pain relief. Risks, benefits of procedure discussed and pt verbalized understanding. Admits to anticoagulant use or medical history of diabetes. Protocol for discontinuation/ continuation of medications kris procedure discussed. Minimal anesthesia provided, if clinically indicated, consisting of Versed and Fentanyl. All questions answered. I have spent less than 30 minutes on patient care today. Dr Gomez was available by phone for the evaluation of this patient. The time was used to review the medical records including relevant urine studies and Prescription history (MAPs), review of the available imaging, evaluation and examination of the patient, coordination of care with the medical staff and if applicable referring physicians, as well as creation of the medical record - Pain Location Bilateral Lower Back Non-Pharmacological Interventions: Heat, Ice Pharmacological Interventions: PRN Medication PQRS Narrative: Smoking Status Never smoker Narcotic Agreement Date Signed 09/27/21 Hx Alcohol Use (MH) Yes: occ Home Medications: Ambulatory Orders Cholecalciferol [Vitamin D3 (25 Mcg = 1000 Iu)] 2,000 unit PO DAILY 04/06/17 Cinnamon Bark [Cinnamon] 1,000 mg PO BID 04/06/17 Sertraline [Zoloft] 100 mg PO QAM 04/06/17 Simvastatin 80 mg PO HS 04/06/17 Triamterene/Hydrochlorothiazid [Triamterene-Hctz 37.5-25 mg Tb] 1 each PO DAILY 04/06/17 Vitamin B Complex 1 each PO DAILY 04/06/17 [place]-3 Fatty Acids/Fish Oil [Fish Oil 1,000 mg Softgel] 1 each PO DAILY 05/20/21 Famotidine [Pepcid AC] 10 mg PO BID PRN 07/22/21 Gabapentin [Neurontin] 300 mg PO TID PRN 11/23/22 traMADol HCL 50 mg PO Q6H PRN 11/23/22 Apixaban [Eliquis] 2.5 mg PO BID #60 tab 02/20/23 HYDROcodone/APAP 7.5-325MG [[place] 7.5-325] 1 - 2 tab PO Q6HR PRN #32 tab 02/20/23 Sennosides-Docusate Sodium [Senokot-S] 1 tab PO BID #60 tablet 02/20/23 Controlled Substance Measures - Controlled Substance Measures Is patient prescribed a controlled substance at discharge?: No
== END ==
LOC: PNWHC3 07:23
PROVIDERS: ATTEND Specialist
DX: M51.36 Other intervertebral disc degeneration, lumbar region (principal); M47.816 Spondylosis without myelopathy or radiculopathy, lumbar region; G89.29 Other chronic pain
CPT/HCPCS: 99211

== ENCOUNTER → 2023-05-20 | Outpatient (CLI) | payer MEDICARE ==
--- NOTE | 2023-05-20 19:19 | MR ---
EXAMINATION TYPE: MR hip LT wo con DATE OF EXAM: 05/20/2023 11:37 AM CLINICAL INDICATION:Female, 68 years old with history of C54.1 MAL DORY ENDOMETRIUM; Left thigh and hi p pain COMPARISON: Bone scan 05/04/2023. TECHNIQUE: Multiplanar multi-sequential magnetic resonance imaging of the left hip without contrast. IV Contrast: cc none FINDINGS: Joint spaces and alignment: Moderate joint space narrowing. Joint/bursal fluid: No left iliopsoas bursa near the lesser trochanter is inflamed and enlarged lashay uring up to 22 x 9 mm. Articular cartilage: There is cartilage thinning with osteophyte formation of the fem oral head. Acetabular labrum: Degenerative labrum without displaced tear on this non-arthrogram technique exam. Muscles/Tendons: Intact , increased signal at the insertion of the gluteus medius on the right and to lesser extent left. Intrasubstance left gluteus medius T2 signal measuring 9 mm. The tendons of the hamstring, iliopsoas, and adductors are normal in within normal limits without evidence for edema and are intact. Abductor tendon insertions: Intact Intrapelvic structures: Normal Neurovascular structures: Normal Marrow: Abnormal bone marrow signal within the left distal femur partially in the [id number] on co gretchen imaging only correspond to prior bone scan abnormal uptake. This area measures at least 4.2 x 1 .7 cm. The bilateral femoral head demonstrates normal morphology and signal characteristics. There is no ev idence of fracture or acute process. The sacroiliac joints and pubic symphysis are noted to be unrema rkable. Soft tissues: No soft tissue masses identified. No lymphadenopathy. Other: Uterus is surgically absent. No evidence for lymphadenopathy. IMPRESSION: 1. No evidence for a bilateral hip fracture, AVN, or bone marrow edema. 2. Bilateral insertional tendinosis of the gluteus medius. 3. Left gluteus medius high T2 signal could represent prior muscle strain grade 2. 4. Moderate left hip osteoarthrosis with out evidence for displaced labral tear. 5. Findings suggestive of left iliopsoas bursitis near the lesser trochanter. 6. Left femur diaphysis abnormal bone marrow appearance corresponding with bony uptake on prior nucle ar medicine scan. Dedicated left femur radiographs of the femur is recommended and possibly at that p oint MRI left femur with and without IV contrast to exclude underlying neoplasm.
== END | disposition home or self-care (01) ==
LOC: RADMRIMAIN 10:50
PROVIDERS: ATTEND Internal Medicine Hematology & Oncology
DX: C54.1 Malignant neoplasm of endometrium (principal); M16.12 Unilateral primary osteoarthritis, left hip

== ENCOUNTER 2023-05-23 07:27 | Day surgery (SDC) | payer MEDICARE ==
[2023-05-19 11:02] VITALS: BMI 34.9
[~2023-05-23 07:27] MED LIST changes: -ACETAMINOPHEN TAB 500 MG TAB PO PRN; -HYDROmorphone 0.5 MG/0.5 ML SYRINGE IVP PRN; +LACTATED RINGERS 1,000 ML IV SCH; -LIDOCAINE 1% (10MG/ML) FOR IV START INTRADERMA PRN; -MELOXICAM 7.5 MG TAB PO PRN; -ONDANSETRON 4 MG/2 ML VIAL IVP PRN; -ROPIVACAINE/EPI/CLONIDINE/KET 50 ML SYRINGE MISCELLANE PRN; -TRANEXAMIC ACID IN NACL,ISO-OS 1,000 MG in SALINE 1 100ML.BAG IVPB PRN
[2023-05-23 07:47] VITALS: TEMP 96.5
[2023-05-23] MEDS ORDERED: IOPAMIDOL M200 10 ML VIAL ONE (08:23)
[2023-05-23] MEDS ORDERED: TRIAMCINOLONE ACETONIDE 40 MG/ML 1 ML VIAL ONE (08:23)
[2023-05-23] MEDS ORDERED: ROPIVACAINE 5 MG/ML 20 ML AMPULE ONE (08:23)
--- NOTE | 2023-05-23 08:35 | P.PCN ---
Date of Procedure: 05/23/23 Surgeon: Gisselle Mathias Pathology: none sent Condition: stable Disposition: PACU Description of Procedure: PREOPERATIVE DIAGNOSIS: - Lumber Degenerative Disc Diseases. POSTOPERATIVE DIAGNOSIS: Lumbar Degenerative Disc Diseases PROCEDURE 1. Lumbar epidural steroid injection under fluoroscopic guidance at the L5-S1 level. 2. Lumbar epidurogram. ANESTHESIA: Local with 1% lidocaine; and IV moderate conscious sedation with Versed and fentanyl EBL: Minimal PROCEDURE INDICATION: The patient with low back pain and radiculitis symptoms unresponsive to conservative treatment. Fluoroscopy was used to optimize visualization of the needle placement and to maximize safety. PROCEDURE DESCRIPTION / TECHNIQUE: The patient was seen and identified in the preoperative area. Risks, benefits, complications including but not limited to infections ,bleeding ,allergic reaction to the medications ,nerve damage and not complete pain relief , and alternatives were discussed with the patient. The patient agreed to proceed with the procedure and signed the consent. IV was started, and vital signs were stable. Patient was taken to the OR and time out was completed. The patient was placed in the prone position on procedure table and a pillow was placed under the abdomen to reduce lumbar lordosis. The lumbosacral area was prepped and draped in the usual sterile fashion with ChloraPrep.Patient was closely monitored during the procedure. Conscious sedation was used during the procedure to decrease patients anxiety. Vital signs were monitered during the entire procedure. Using anterior-posterior fluoroscopy, the L4-5 interlaminar space was identified and the skin over this site was marked and then infiltrated with 1% lidocaine subcutaneously. Subsequently, a 20-gauge Tuohy epidural needle was inserted and advanced toward the epidural space using the Loss of resistance to air technique and guided by AP and lateral fluoroscopy. The correct needle position in the epidural space was verified with the injection of 1 mL of the water soluble contrast dye Omnipaque 180 contrast and observing an excellent epidurogram with the epidural spread of the dye, after negative aspiration for blood and CSF and in the absence of paresthesias. Again after negative aspiration, a 7 ml mixture containing 40 mg of Kenalog and 5 ml of preservative free Normal Saline, and 1 ml of preservative free Ropivacaine 0.5% solution was injected and a washout of epidurogram was seen. However I was able to inject only 5 MLS of the solution due to the patient's increasing pain with injection. Needle was withdrawn intact, skin was cleansed, and bandages were applied. patient tolerated procedure well and was transferred to PACU in stable condition.A copy of the needle placement picture was saved to the fluoroscopy machine. COMPLICATIONS: None The patient feels pain in the left groin also and that is why I'm going to schedule her for another lumbar epidural steroid injection but at the L2-L3 level on the left paramedian approach. This level has severe stenosis as per the lumbar MRI.
[2023-05-23 08:40] VITALS: RESP 16
--- NOTE | 2023-05-23 08:47 | FL ---
Intraoperative/procedural fluoroscopic services were provided. Total fluoroscopy time is 6.9 seconds with a total of 2 submitted images to PACS. Please see the operative/procedural note for further deta ils. DAP: [id number] mGym2
[2023-05-23 08:57] VITALS: BP 117/62; PULSE 70
== END 2023-05-23 08:57 | disposition home or self-care (01) ==
LOC: ORPAIN 07:27
PROVIDERS: ATTEND Anesthesiology
DX: M51.16 Intervertebral disc disorders with radiculopathy, lumbar region (principal); I10 Essential (primary) hypertension
CPT/HCPCS: 99152; 62323; J3301; Q9966; J2795

== ENCOUNTER → 2023-06-19 | Outpatient (CLI) | payer MEDICARE ==
[2023-06-19 08:13] VITALS: BP 128/78; PULSE 86; RESP 14; TEMP 97.9
--- NOTE | 2023-06-19 14:30 | P.PAINPG ---
PQRS Measure Charge Sheet Comment: A 68 yr old female with a history of severe and chronic LBP secondary to lumbar DDD and spondylosis with facet arthropathy without myelopathy presents today for evaluation s/p ASHLEY L5-S1 #2. Pt states she experienced 90 % pain relief x 4 wks s/p procedure. Pain level is provoked at 1 /10 in intensity, constant, localized in the lumbar spine, stabbing in character w/o shooting pain. Pain is provoked by prolonged activity for periods of 30 min or more. Pain is alleviated with physician guided home exercises and stretches daily x 3 yrs, chiropractic treatments monthly x 3 yrs, heat, ice, medications, topical, walking/stretching, repositioning and rest. Interventional pain procedures completed include ASHLEY L5-S1 x2, T6-T7 Patient is currently on Ibu Patient denies any side effects of the medication(s), denies excessive drowsiness or sleepiness, denies suicidal ideation and reports that the current pain medication is helping to control the pain and improve activities of daily living. Patient denies any motor or sensory deficits. Patient denies any fever or night sweats, denies any change in the bowel movements or urination. Physical Examination: -Constitutional: Cooperative. Not in acute distress . - Neurologic: Cranial nerve II to XII intact. No focal neurological deficits. - Psychatric: Alert & oriented x 3. Matching mood & appropriate affect. Judgment and insight intact. - Musculoskeletal: Cervical spine: Muscle bulk/ tone/ strength in the bilateral upper extremities normal Vertebral body tenderness to palpation over Spurling test positive Distraction test positive Facet loading test positive TTP Thoracic spine Muscle bulk / tone/ strength in the bilateral paraspinal muscles normal Vertebral body tender to palpation over Facet loading test positive TTP Lumbar spine: Motor bulk/ tone/ strength lower extremities , thigh and legs : 5/5 Deep tendon reflexes : Normal Knee Jerk. Normal Ankle Jerk . Vertebral body tenderness to palpation over L5 Abreu Test positive Lumbar Facet Loading Test positive Straight Leg Raise: positive at 30 degrees right side/ left side Gaenslen's Test positive Sacral spine : Severe tenderness over the Sacroiliac joint: right side / left side Range of motion: Flexion of the lumbar spine <60 degrees Range of motion: Extension of the lumbar spine <20 degrees Gaenslen's Test positive right side / left side Reed test: positive right side / left side Thigh Thrust Test positive right side / left side Sacral Thrust Test positive right side / left side Assessment and plan: Chronic LBP secondary to lumbar DDD, spondylosis with facet arthropathy without myelopathy Will manage residual pain and may return to clinic on an as needed basis. All questions answered. I have spent less than 30 minutes on patient care today. Dr Gomez was available by phone for the evaluation of this patient. The time was used to review the medical records including relevant urine studies and Prescription history (MAPs), review of the available imaging, evaluation and examination of the patient, coordination of care with the medical staff and if applicable referring physicians, as well as creation of the medical record PQRS Narrative: Smoking Status Never smoker Narcotic Agreement Date Signed 09/27/21 Hx Alcohol Use (MH) Yes: occ Home Medications: Ambulatory Orders Cholecalciferol [Vitamin D3 (25 Mcg = 1000 Iu)] 2,000 unit PO DAILY 04/06/17 Cinnamon Bark [Cinnamon] 1,000 mg PO BID 04/06/17 Sertraline [Zoloft] 100 mg PO QAM 04/06/17 Simvastatin 80 mg PO HS 04/06/17 Triamterene/Hydrochlorothiazid [Triamterene-Hctz 37.5-25 mg Tb] 1 each PO DAILY 04/06/17 Vitamin B Complex 1 each PO DAILY 04/06/17 [place]-3 Fatty Acids/Fish Oil [Fish Oil 1,000 mg Softgel] 1 each PO DAILY 05/20/21 Famotidine [Pepcid AC] 10 mg PO BID PRN 07/22/21 Etodolac [Lodine] 500 mg PO BID 05/19/23 Controlled Substance Measures - Controlled Substance Measures Is patient prescribed a controlled substance at discharge?: No
== END ==
LOC: PNWHC3 07:52
PROVIDERS: ATTEND Specialist
DX: M51.36 Other intervertebral disc degeneration, lumbar region (principal); M47.816 Spondylosis without myelopathy or radiculopathy, lumbar region; G89.29 Other chronic pain
CPT/HCPCS: 99211

== ENCOUNTER → 2023-08-17 | Outpatient (CLI) | payer MEDICARE ==
[2023-08-17 11:12] LABS: Calcium 10.3 mg/dL (8.4-10.2); Ionized Calcium 5.5 mg/dL (4.5-5.3)
== END | disposition home or self-care (01) ==
LOC: LABWHC1 09:48
PROVIDERS: ATTEND Family Medicine
DX: R31.9 Hematuria, unspecified (principal); R89.9 Unspecified abnormal finding in specimens from other organs, systems and tissues
CPT/HCPCS: 36415; 82310; 82330; 83970; 87086

== ENCOUNTER → 2023-08-24 | Outpatient (CLI) | payer MEDICARE ==
--- NOTE | 2023-08-24 12:11 | CT ---
EXAMINATION TYPE: CT chest wo con DATE OF EXAM: 08/24/2023 COMPARISON: 02/15/2023 HISTORY: Check up exam. Lung cancer [address] DLP: 441.[address] of the chest was performed with lung and mediastinal window settings submitted. The la ck of contrast limits evaluation of the vascular, mediastinal and parenchymal structures including th e upper abdomen. LUNGS: Right apical pulmonary nodule measures 9.4 mm versus 9.4 mm previously. Postoperative changes right lower lobe are redemonstrated. Partial right-sided rib resection noted. MEDIASTINUM/KARINA: Ectasia ascending thoracic aorta 3.8 cm AP dimension. The heart is mildly enlarged. No evidence for mediastinal mass. No lymph nodes greater than 1cm. UPPER ABDOMEN: The gallbladder is surgically absent. OTHER: No significant other abnormality. IMPRESSION: 1. Stable right apical pulmonary nodule. Continued follow-up is recommended to exclude malignancy. 2. Postoperative changes right lower lobe.
== END | disposition home or self-care (01) ==
LOC: RADCTMAIN 11:35
PROVIDERS: ATTEND Internal Medicine Hematology & Oncology
DX: C54.1 Malignant neoplasm of endometrium (principal); R91.1 Solitary pulmonary nodule; E78.5 Hyperlipidemia, unspecified; Z71.3 Dietary counseling and surveillance; Z98.890 Other specified postprocedural states
CPT/HCPCS: 71250

== ENCOUNTER → 2023-09-11 | Outpatient (CLI) | payer MEDICARE ==
[2023-09-11 16:11] LABS: Appearance,Urine Turbid (Clear); Bacteria,Urine Many /hpf; Bilirubin,Urine 3+ (Negative); Blood,Urine Negative (Negative); Color,Urine Yellow; Glucose,Urine (UA) Negative (Negative); Ketones,Urine Negative (Negative); Leukocyte Esterase,Urine Large (Negative); Nitrite,Urine Negative (Negative); PH, Urine 5.5 (5.0-8.0); Protein,Urine Trace (Negative); RBC,Urine 2 /hpf (0-5); Specific Gravity,Urine 1.025 (1.001-1.035); Squamous Epithelial Cell,Urine 2 /hpf (0-4); Urobilinogen,Urine <2.0 mg/dL (<2.0)
== END | disposition home or self-care (01) ==
LOC: LABPRL 10:57
PROVIDERS: ATTEND Family Medicine
DX: R35.0 Frequency of micturition (principal)
CPT/HCPCS: 81001

== ENCOUNTER → 2023-09-28 | Outpatient (CLI) | payer MEDICARE ==
--- NOTE | 2023-09-28 11:42 | P.PAINPG ---
Objective - Vital Signs Vital signs: Intake & Output 09/27/23 09/28/23 09/28/23 18:59 06:59 18:59 Weight 106.594 kg PQRS Measure Charge Sheet Comment: A 68 yr old female with a history of severe and chronic LBP x 3 mo secondary to lumbar DDD and spondylosis with facet arthropathy without myelopathy presents today for evaluation. Pain level is provoked at 7/10 in intensity, constant, predominantly axial, localized in the lumbar spine, stabbing in character with occasional shooting pain towards the buttocks. Pain is provoked by prolonged activity for periods of 30 min or more. Pain is alleviated with PT in 2021, physician guided home exercises and stretches daily x 3.5 yrs, chiropractic treatments monthly x 4 yrs, heat, ice, medications, topical, walking/stretching, repositioning and rest. Oswestry axial pain score of 20. Interventional pain procedures completed include ASHLEY L5-S1 x2, T6-T7 Patient is currently on Ibu Patient denies any side effects of the medication(s), denies excessive drowsiness or sleepiness, denies suicidal ideation and reports that the current pain medication is helping to control the pain and improve activities of daily living. Patient denies any motor or sensory deficits. Patient denies any fever or night sweats, denies any change in the bowel movements or urination. Physical Examination: -Constitutional: Cooperative. Not in acute distress . - Neurologic: Cranial nerve II to XII intact. No focal neurological defici ts. - Psychatric: Alert & oriented x 3. Matching mood & appropriate affect. Judgment and insight intact. - Musculoskeletal: Cervical spine: Muscle bulk/ tone/ strength in the bilateral upper extremities normal Vertebral body tenderness to palpation over Spurling test positive Distraction test positive Facet loading test positive TTP Thoracic spine Muscle bulk / tone/ strength in the bilateral paraspinal muscles normal Vertebral body tender to palpation over Facet loading test positive TTP Lumbar spine: Motor bulk/ tone/ strength lower extremities , thigh and legs : 5/5 Deep tendon reflexes : Normal Knee Jerk. Normal Ankle Jerk . Vertebral body tenderness to palpation over L5 Abreu Test positive Lumbar Facet Loading Test positive Straight Leg Raise: positive at 30 degrees right side/ left side Gaenslen's Test positive Sacral spine : Severe tenderness over the Sacroiliac joint: right side / left side Range of motion: Flexion of the lumbar spine <60 degrees Range of motion: Extension of the lumbar spine <20 degrees Gaenslen's Test positive right side / left side Reed test: positive right side / left side Thigh Thrust Test positive right side / left side Sacral Thrust Test positive right side / left side Assessment and plan: Chronic LBP secondary to lumbar DDD, spondylosis with facet arthropathy without myelopathy Recommendation of ASHLEY L5-S1 #2. May need a series of injections for optimal pain relief. Risks, benefits of procedure discussed and pt verbalized understanding. Protocol for discontinuation/ continuation of medications surrounding procedure discussed. All questions answered. I have spent less than 30 minutes on patient care today. Dr Gomez was available by phone for the evaluation of this patient. The time was used to review the medical records including relevant urine studies and Prescription history (MAPs), review of the available imaging, evaluation and examination of the patient, coordination of care with the medical staff and if applicable referring physicians, as well as creation of the medical record PQRS Narrative: Smoking Status Never smoker Narcotic Agreement Date Signed 09/27/21 Hx Alcohol Use (MH) Yes: occ Home Medications: Ambulatory Orders Cholecalciferol [Vitamin D3 (25 Mcg = 1000 Iu)] 2,000 unit PO DAILY 04/06/17 Cinnamon Bark [Cinnamon] 1,000 mg PO BID 04/06/17 Sertraline [Zoloft] 100 mg PO QAM 04/06/17 Simvastatin 80 mg PO HS 04/06/17 Triamterene/Hydrochlorothiazid [Triamterene-Hctz 37.5-25 mg Tb] 1 each PO DAILY 04/06/17 Vitamin B Complex 1 each PO DAILY 04/06/17 [place]-3 Fatty Acids/Fish Oil [Fish Oil 1,000 mg Softgel] 1 each PO DAILY 05/20/21 Famotidine [Pepcid AC] 10 mg PO BID PRN 07/22/21 Etodolac [Lodine] 500 mg PO BID 05/19/23 Controlled Substance Measures - Controlled Substance Measures Is patient prescribed a controlled substance at discharge?: No
[2023-09-28 15:06] VITALS: BP 140/71; PULSE 76; RESP 16; TEMP 97.6
== END ==
LOC: PNWHC3 11:04
PROVIDERS: ATTEND Specialist
DX: M51.36 Other intervertebral disc degeneration, lumbar region (principal); M47.816 Spondylosis without myelopathy or radiculopathy, lumbar region; M54.50 Low back pain, unspecified
CPT/HCPCS: 99211

== ENCOUNTER → 2023-09-28 | Outpatient (CLI) | payer MEDICARE ==
--- NOTE | 2023-09-29 08:53 | MM ---
Reason for Exam: Screening (asymptomatic). Last screening mammogram was performed 12 month(s) ago. Patient History: Menarche at age 12. First Full-Term at age 24. Postmenopausal. Risk Values: Palmira 5 year model risk: 1.7%. NCI Lifetime model risk: 5.7%. Prior Study Comparison: 08/24/2021 Bilateral MG screening mammo w CAD - 2, [facility]. 09/08/2021 Left MG work up mamm w CAD LT - 2, [facility]. 09/19/2022 Bilateral MG 3D screening mammo w/cad, [facility]. Tissue Density: There are scattered fibroglandular densities. Findings: Analyzed By CAD. There is no suspicious group of microcalcifications or new suspicious mass. Overall Assessment: Negative, BI-RAD 1 Management: Screening Mammogram of both breasts in [address] [facility] will attempt to contact patient to return for supplemental views and ultrasound if indicated. Patient should continue monthly self-breast exams. A clinical breast exam by your physician is recommended on an annual basis. This exam should not preclude additional follow-up of suspicious palpable abnormalities. Note on Palmira scores and lifetime risk: 1. A Palmira score greater than 3% is considered moderate risk. If this is the case, consider specialist referral to assess eligibility for a risk reducing agent. 2. If overall lifetime risk for the development of breast cancer is 20% or higher, the patient may qualify for future screening with alternating mammogram and breast MRI. Electronically signed and approved by: Mejia Guzmán DO
== END | disposition home or self-care (01) ==
LOC: RADMAMWWP 08:20
PROVIDERS: ATTEND Family Medicine
DX: Z12.31 Encounter for screening mammogram for malignant neoplasm of breast (principal); R92.323 Mammographic fibroglandular density, bilateral breasts; Z78.0 Asymptomatic menopausal state
CPT/HCPCS: 77063; 77067

== ENCOUNTER 2023-10-17 07:25 | Day surgery (SDC) | payer MEDICARE ==
[2023-10-13 08:59] VITALS: BMI 34.9
[2023-10-17 07:49] VITALS: TEMP 97.9
[2023-10-17] MEDS ORDERED: methylPREDNISolone ACETATE 80 MG/ML 1 ML VIAL ONE (08:19)
[2023-10-17] MEDS ORDERED: IOPAMIDOL M200 10 ML VIAL ONE (08:19)
--- NOTE | 2023-10-17 08:31 | P.PCN ---
Date of Procedure: 10/17/23 Procedure(s) Performed: PREOPERATIVE DIAGNOSIS: 1- Lumbar Degenerative Disc Diseases 2-Lumbar spondylosis with Facet arthropathy without myelopathy. POSTOPERATIVE DIAGNOSIS: 1-lumbar degenerative disc disease. 2-lumbar spondylosis with facet arthropathy without myelopathy PROCEDURE 1. Lumbar epidural steroid injection under fluoroscopic guidance at the L5-S1 level. (Fluoroscopy imaging was available in radiology department) 2. Lumbar epidurogram. ANESTHESIA: Lidocaine 1% 3 and then only. EBL: Minimal PROCEDURE INDICATION: The patient with low back pain and radiculitis symptoms unresponsive to conservative treatment. Fluoroscopy was used to optimize visualization of the needle placement and to maximize safety. PROCEDURE DESCRIPTION / TECHNIQUE: The patient was seen and identified in the preoperative area. Risks, benefits, complications including but not limited to infections ,bleeding ,allergic reaction to the medications ,nerve damage and not complete pain releife , and alternatives were discussed with the patient. The patient agreed to proceed with the procedure and signed the consent, and vital signs were stable. Patient was taken to the OR and time out was completed. The patient was placed in the prone position on procedure table and a pillow was placed under the abdomen to reduce lumbar lordosis. The lumbosacral area was prepped and draped in the usual sterile fashion.ere closely monitored during the procedure. Vital signs was monitered during the entire procedure. Using anterior-posterior fluoroscopy, the L5-S1 interlaminar space was identified and the skin over this site was marked and then infiltrated with 1% lidocaine subcutaneously. Subsequently, a 20-gauge Tuohy epidural needle was inserted and advanced toward the epidural space using the ``Loss of resistance technique and guided by AP and lateral fluoroscopy. The correct needle position in the epidural space was verified with the injection of 2 mL of the water soluble contrast dye Isovue 200 contrast and observing an excellent epidurogram with the epidural spread of the dye, after negative aspiration for blood and CSF and in the absence of paresthesias. Again after negative aspiration, a 6 ml mixture containing 60 mg of Depo-medrol ( Preservetive Free ), and 2 ml of preservative free Normal Saline, and 2 ml of preservative free lidocaine 1% solution was injected and a washout of epidurogram was seen. Needle was withdrawn intact, skin was cleansed, and bandages were applied. COMPLICATIONS: None DISPOSITION / PLANS: The patient was placed in a supine position and transferred to the recovery area in a stable condition for observation. There was no dipti dence of lower extremity motor or sensory deficit after the procedure. Patient was discharged from the recovery room after meeting discharge criteria. Home discharge instructions were given to the patient by the staff. The patient was reexamined prior to discharge. The patient will schedule a follow up in the clinic in 2-4 weeks.
[2023-10-17 09:02] VITALS: BP 121/63; PULSE 65; RESP 19
--- NOTE | 2023-10-17 09:52 | FL ---
Fluoroscopy History: M54.16 LUMBAR RADICULOPATHY LESI 2 sec fl .[id number] DAP
== END 2023-10-17 09:02 | disposition home or self-care (01) ==
LOC: ORPAIN 07:25
PROVIDERS: ATTEND Specialist
DX: M51.16 Intervertebral disc disorders with radiculopathy, lumbar region (principal); M47.26 Other spondylosis with radiculopathy, lumbar region
CPT/HCPCS: 62323; J1040; Q9966

== ENCOUNTER → 2023-11-08 | Outpatient (CLI) | payer MEDICARE ==
[2023-11-08 20:02] LABS: Appearance,Urine Cloudy (Clear); Bacteria,Urine Moderate /hpf; Bilirubin,Urine 2+ (Negative); Blood,Urine Negative (Negative); Color,Urine Yellow; Glucose,Urine (UA) Negative (Negative); Ketones,Urine Negative (Negative); Leukocyte Esterase,Urine Moderate (Negative); Mucus,Urine Rare /hpf; Nitrite,Urine Negative (Negative); Protein,Urine Negative (Negative); RBC,Urine <1 /hpf (0-5); Specific Gravity,Urine 1.017 (1.001-1.035); Squamous Epithelial Cell,Urine 3 /hpf (0-4); Urobilinogen,Urine <2.0 mg/dL (<2.0); WBC,Urine 6 /hpf (0-5)
[2023-11-09 02:20] LABS: HCT 42.4 % (37.2-46.3); HGB 13.7 g/dL (12.0-15.0); MCH 29.3 pg (27.0-32.0); MCHC 32.3 g/dL (32.0-37.0); MCV 90.6 FL (80.0-97.0); Mean Platelet Volume 10.9 FL (9.5-12.2); NRBC Per 100 WBC 0 X 10*3/uL (0.00-0.01); Platelet Count 232 X 10*3/uL (140-440); RBC 4.68 X 10*6/uL (4.10-5.20); RDW 12.7 % (11.5-14.5); WBC 7.82 X 10*3/uL (4.50-10.00)
[2023-11-09 03:01] LABS: BUN/Creat Ratio 23.14 Ratio (12.00-20.00); Blood Urea Nitrogen 16.2 mg/dL (9.0-27.0); Chloride 105 mmol/L (96-109); Chol/HDL Ratio 3.14 Ratio; Glucose 109 mg/dL (70-110); LDL Cholesterol,Calculated 93.5 mg/dL (0.0-131.0); Potassium 4.2 mmol/L (3.5-5.5); Sodium 142 mmol/L (135-145)
[2023-11-09 03:02] LABS: ALT 26 U/L (8-44); AST 23 U/L (13-35); Albumin 4.6 g/dL (3.8-4.9); Albumin/Globulin Ratio 1.84 Ratio (1.60-3.17); Alkaline Phosphatase 97 U/L (41-126); Calcium 10.7 mg/dL (8.7-10.3); Carbon Dioxide 23.8 mmol/L (21.6-31.8); Globulin 2.5 g/dL (1.6-3.3); Total Bilirubin 0.8 mg/dL (0.3-1.2); Total Protein 7.1 g/dL (6.2-8.2)
[2023-11-09 05:04] LABS: Microalbumin Creatinine Ratio <12 mg/g Cr (0-30)
== END | disposition home or self-care (01) ==
LOC: LABWHC1 14:42
PROVIDERS: ATTEND Family Medicine
DX: I10 Essential (primary) hypertension (principal); E78.5 Hyperlipidemia, unspecified; E66.9 Obesity, unspecified; E11.9 Type 2 diabetes mellitus without complications; N39.41 Urge incontinence
CPT/HCPCS: 36415; 80053; 80061; 81001; 82043; 82306; 82570; 83036; 84443; 85027

== ENCOUNTER → 2024-02-09 | Outpatient (CLI) | payer MEDICARE ==
--- NOTE | 2024-02-15 08:56 | CT ---
EXAMINATION TYPE: CT chest wo con DATE OF EXAM: 02/09/2024 COMPARISON: 08/24/2023 and 10/13/2020 HISTORY: f/u lung cancer CT DLP: 505.[address] of the chest was performed with lung and mediastinal window settings submitted. The la ck of contrast limits evaluation of the vascular, mediastinal and parenchymal structures including th e upper abdomen. LUNGS: Right upper lobe pulmonary nodule measures 9.2 mm versus 9.4 mm. Stable nodular density right upper lobe anteriorly measures 5.5 mm versus 5.5 mm previously. Stable nodule along the right major f issure measures 1.4 cm versus 1.4 cm and was present dating back in 10/13/2020. No additional nodules identified. Basilar parenchymal scarring seen. MEDIASTINUM/KARINA: Thoracic aorta is of normal caliber with limited evaluation given lack of contrast . The heart is not enlarged. No evidence for mediastinal mass. No lymph nodes greater than 1cm. UPPER ABDOMEN: No significant abnormality is seen. OTHER: Wise changes right chest wall. IMPRESSION: 1. Stable pulmonary nodularity. Metastatic disease is not excluded. Tiny follow-up advised. Largest nodule has been present since 2019.
== END | disposition home or self-care (01) ==
LOC: RADCTMAIN 11:23
PROVIDERS: ATTEND Internal Medicine Hematology & Oncology
DX: J98.4 Other disorders of lung (principal); R91.1 Solitary pulmonary nodule; E78.5 Hyperlipidemia, unspecified; C54.1 Malignant neoplasm of endometrium; C34.90 Malignant neoplasm of unspecified part of unspecified bronchus or lung; Z71.3 Dietary counseling and surveillance
CPT/HCPCS: 71250

== ENCOUNTER → 2024-02-22 | Outpatient (CLI) | payer MEDICARE ==
[2024-02-22 08:47] VITALS: BP 113/74; PULSE 88; RESP 16; TEMP 98.2
--- NOTE | 2024-02-22 14:44 | P.PAINPG ---
PQRS Measure Charge Sheet Comment: A 68 yr old female with a history of severe and chronic LBP x 3 mo secondary to lumbar DDD and spondylosis with facet arthropathy without myelopathy presents today for evaluation s/p ASHLEY L5-S1 #2. Pt states she experienced 90 % pain relief x 3 mo s/p procedure. Pain level is provoked at 8 /10 in intensity, constant, predominantly axial, localized in the lumbar spine, burning in character with occasional shooting pain towards the hips and back of the LEs. Pain is provoked by prolonged activity for periods of 30 min or more. Pain is alleviated with PT in 2021, massage therapy monthly for yrs w last visit 3 wks ago, physician guided home exercises and stretches daily x 4 yrs, chiropractic treatments 1-2 times monthly x 4 yrs, heat, ice, medications, topical, walking/stretching, repositioning and rest. Oswestry axial pain score of 22. Interventional pain procedures completed include ASHLEY L5-S1 x3, T6-T7 Patient is currently on Ibu Patient denies any side effects of the medication(s), denies excessive drowsiness or sleepiness, denies suicidal ideation and reports that the current pain medication is helping to control the pain and improve activities of daily living. Patient denies any motor or sensory deficits. Patient denies any fever or night sweats, denies any change in the bowel movements or urination. Physical Examination: -Constitutional: Cooperative. Not in acute distress . - Neurologic: Cranial nerve II to XII intact. No focal neurological deficits. - Psychatric: Alert & oriented x 3. Matching mood & appropriate affect. Judgment and insight intact. - Musculoskeletal: Cervical spine: Muscle bulk/ tone/ strength in the bilateral upper extremities normal Vertebral body tenderness to palpation over Spurling test positive Distraction test positive Facet loading test positive TTP Thoracic spine Muscle bulk / tone/ strength in the bilateral paraspinal muscles normal Vertebral body tender to palpation over Facet loading test positive TTP Lumbar spine: Motor bulk/ tone/ strength lower extremities , thigh and legs : 5/5 Deep tendon reflexes : Normal Knee Jerk. Normal Ankle Jerk . Vertebral body tenderness to palpation over L5 Abreu Test positive Lumbar Facet Loading Test positive Straight Leg Raise: positive at 30 degrees right side/ left side Gaenslen's Test positive Sacral spine : Severe tenderness over the Sacroiliac joint: right side / left side Range of motion: Flexion of the lumbar spine <60 degrees Range of motion: Extension of the lumbar spine <20 degrees Gaenslen's Test positive right side / left side Reed test: positive right side / left side Thigh Thrust Test positive right side / left side Sacral Thrust Test positive right side / left side Assessment and plan: Chronic LBP secondary to lumbar DDD, spondylosis with facet arthropathy without myelopathy Recommendation of ASHLEY L5-S1 #3. May need a series of injections for optimal pain relief. Risks, benefits of procedure discussed and pt verbalized understanding. Protocol for discontinuation/ continuation of medications surrounding procedure discussed. All questions answered. I have spent less than 30 minutes on patient care today. Dr Gomez was available by phone for the evaluation of this patient. The time was used to review the medical records including relevant urine studies and Prescription history (MAPs), review of the available imaging, evaluation and examination of the patient, coordination of care with the medical staff and if applicable referring physicians, as well as creation of the medical record PQRS Narrative: Smoking Status Never smoker Narcotic Agreement Date Signed 09/27/21 Hx Alcohol Use (MH) Yes: occ Home Medications: Ambulatory Orders Cholecalciferol [Vitamin D3 (25 Mcg = 1000 Iu)] 2,000 unit PO DAILY 04/06/17 Cinnamon Bark [Cinnamon] 1,000 mg PO BID 04/06/17 Sertraline [Zoloft] 100 mg PO QAM 04/06/17 Simvastatin 80 mg PO HS 04/06/17 Triamterene/Hydrochlorothiazid [Triamterene-Hctz 37.5-25 mg Tb] 1 each PO DAILY 04/06/17 Vitamin B Complex 1 each PO DAILY 04/06/17 [place]-3 Fatty Acids/Fish Oil [Fish Oil 1,000 mg Softgel] 1 each PO DAILY 07/03 Famotidine [Pepcid AC] 10 mg PO BID PRN 07/22/21 Etodolac [Lodine] 500 mg PO BID 05/19/23 Controlled Substance Measures - Controlled Substance Measures Is patient prescribed a controlled substance at discharge?: No
== END ==
LOC: PNWHC3 07:49
PROVIDERS: ATTEND Anesthesiology
DX: M51.36 Other intervertebral disc degeneration, lumbar region (principal); M47.816 Spondylosis without myelopathy or radiculopathy, lumbar region; G89.29 Other chronic pain
CPT/HCPCS: 99211

== ENCOUNTER 2024-02-27 08:37 | Day surgery (SDC) | payer MEDICARE ==
[2024-02-26 09:50] VITALS: BMI 34.9
[~2024-02-27 08:37] MED LIST changes: -LACTATED RINGERS 1,000 ML IV SCH; +LIDOCAINE 1% (10MG/ML) FOR IV START INTRADERMA PRN
[2024-02-27] MEDS: LACTATED RINGERS 1,000 ML IV SCH (09:01)
[2024-02-27 09:28] VITALS: TEMP 97.2
[2024-02-27] MEDS ORDERED: PROPOFOL 10 MG/ML 20 ML VIAL IV ONE (09:51)
--- NOTE | 2024-02-27 09:57 | P.GSHP ---
History of Present Illness H&P Date: 02/27/24 Chief Complaint: GERD, odynophagia 68-year-old female here for upper endoscopy. Patient with complaints of chest pain and pain when swallowing. Mild reflux. Mild dysphagia. Past Medical History Past Medical History: Cancer, Deep Vein Thrombosis (DVT), Hyperlipidemia, Hypertension, Pulmonary Embolus (PE) Additional Past Medical History / Comment(s): Hx right lung cancer 2018 and endometrial cancer 2012 Hx DVT left leg that turned into PE at age 23. Borderline Diabetes. Chronic back pain. History of Any Multi-Drug Resistant Organisms: None Reported Past Surgical History: Cholecystectomy, Hysterectomy, Orthopedic Surgery Additional Past Surgical History / Comment(s): RIGHT KNEE SURGERY, LEFT KNEE SURGERY-NO KNEE CAP, COLONOSCOPY, LUNG SURGERY - OF RIGHT LOWER LUNG REMOVED, PAIN CLINIC PROCEDURE, bilateral cataracts removed with lens implants, bone marrow biopsy, christina in left leg, bilateral carpal tunnel. Past Anesthesia/Blood Transfusion Reactions: No Reported Reaction Additional Past Anesthesia/Blood Transfusion Reaction / Comment(s): Adopted, family hx unknown. Smoking Status: Never smoker - Past Family History Mother History Unknown: Yes Family Medical History: Unable to Obtain Additional Family Medical History / Comment(s): PT ADOPTED-FAMILY HHX UNKNOWN Medications and Allergies Home Medications Medication Instructions Recorded Confirmed Type Cholecalciferol [Vitamin D3 (25 1,000 unit PO DAILY 04/06/17 02/26/24 History Mcg = 1000 Iu)] Cinnamon Bark [Cinnamon] 500 mg PO BID 04/06/17 02/26/24 History Sertraline [Zoloft] 100 mg PO QAM 04/06/17 02/27/24 History Simvastatin 80 mg PO HS 04/06/17 02/27/24 History Triamterene/Hydrochlorothiazid 1 each PO QAM 04/06/17 02/27/24 History [Triamterene-Hctz 37.5-25 mg Tb] [place]-3 Fatty Acids/Fish Oil [Fish 1 each PO DAILY 05/20/21 02/27/24 History Oil 1,000 mg Softgel] Famotidine [Pepcid AC] 10 mg PO BID PRN 07/22/21 02/27/24 History Etodolac [Lodine] 500 mg PO BID 05/19/23 02/27/24 History Cyanocobalamin (Vitamin B-12) 1,000 mcg PO DAILY 02/26/24 02/27/24 History [Vitamin B-12] oxyBUTYnin chloride [Ditropan] 5 mg PO DAILY 02/26/24 02/27/24 History Allergies Allergy/AdvReac Type Severity Reaction Status Date / Time No Known Allergies Allergy Verified 02/27/24 09:04 Surgical - Exam Vital Signs Temp Pulse Resp BP Pulse Ox 97.2 F L 97 18 146/79 94 L 02/27/24 09:12 02/27/24 09:12 02/27/24 09:12 02/27/24 09:12 02/27/24 09:12 Physical exam: General: Well-developed, well-nourished HEENT: Normocephalic, sclerae nonicteric Abdomen: Nontender, nondistended Extremities: No edema Neuro: Alert and oriented Assessment and Plan (1) GERD (gastroesophageal reflux disease) Narrative/Plan: Will proceed with upper endoscopy. Current Visit: Yes Status: Acute Code(s): K21.9 - GASTRO-ESOPHAGEAL REFLUX DISEASE WITHOUT ESOPHAGITIS SNOMED Code(s): 366488809
--- NOTE | 2024-02-27 10:05 | P.PCN ---
Date of Procedure: 02/27/24 Procedure(s) Performed: Preoperative Dx: GERD, esophagitis Postoperative Dx: Gastritis, hiatal hernia, erosive esophagitis Procedure: EGD with Bx Anesthesia: Sedation Endoscopist: Dr. Lorenzo Specimens: Antrum, distal esophagus Endoscopic Procedure: The patient was on the endoscopy table in the left decubitus position. The Olympus gastroscope was inserted into the oropharynx and passed under direct visualization to the region of the third portion of the duodenum. From that point the scope was slowly withdrawn inspecting all surfaces carefully. There were no neoplastic inflammatory or polypoid lesions throughout the duodenum. The pylorus was widely patent. The stomach was carefully inspected. There was mild gastritis present. A biopsy of the antrum took place to rule out H. pylori. Retroflexion revealed a small to medium size hiatal hernia. The GE junction was present 2 cm above the diaphragmatic hiatus. The distal esophagus revealed noncircumferential erosions. These extended from the GE junction proximally by 5 to 6 cm. Multiple erosions were present. The proximal esophagus appeared normal. There was no evidence of stricture formation. The patient was then taken to the recovery room in stable condition per anesthesia guidelines. Recommendations: Begin antiacid therapy. Monitor symptoms. Consider repeat EGD at timing of next colonoscopy
[2024-02-27 10:11] VITALS: RESP 16
[2024-02-27 10:20] LABS: Glucose,Whole Blood 130 mg/dL (70-110)
[2024-02-27 10:57] VITALS: BP 116/61; PULSE 66
== END 2024-02-27 10:42 | disposition home or self-care (01) ==
LOC: ORWHC2ENDO 08:37
PROVIDERS: ATTEND Surgery
DX: K29.50 Unspecified chronic gastritis without bleeding (principal); B96.81 Helicobacter pylori [H. pylori] as the cause of diseases classified elsewhere; K44.9 Diaphragmatic hernia without obstruction or gangrene; K21.00 Gastro-esophageal reflux disease with esophagitis, without bleeding; E78.5 Hyperlipidemia, unspecified; G89.29 Other chronic pain; I10 Essential (primary) hypertension; F41.9 Anxiety disorder, unspecified; F32.A Depression, unspecified; Z85.118 Personal history of other malignant neoplasm of bronchus and lung; Z85.42 Personal history of malignant neoplasm of other parts of uterus; Z86.711 Personal history of pulmonary embolism; Z86.718 Personal history of other venous thrombosis and embolism; Z90.49 Acquired absence of other specified parts of digestive tract; Z79.899 Other long term (current) drug therapy; Z98.890 Other specified postprocedural states
CPT/HCPCS: 88305; 88342; 43239; J2704

== ENCOUNTER 2024-03-05 07:36 | Day surgery (SDC) | payer MEDICARE ==
[~2024-03-05 07:36] MED LIST changes: +LACTATED RINGERS 1,000 ML IV SCH; -LIDOCAINE 1% (10MG/ML) FOR IV START INTRADERMA PRN
[2024-03-05] MEDS ORDERED: LACTATED RINGERS 1,000 ML IV SCH (08:04)
[2024-03-05 08:10] LABS: Glucose,Whole Blood 160 mg/dL (70-110)
[2024-03-05 08:11] VITALS: RESP 16; TEMP 96.7
[2024-03-05] MEDS ORDERED: methylPREDNISolone ACETATE 40 MG/ML 1 ML VIAL ONE (08:58)
[2024-03-05] MEDS ORDERED: IOPAMIDOL M200 10 ML VIAL ONE (08:58)
--- NOTE | 2024-03-05 09:03 | P.PCN ---
Date of Procedure: 03/05/24 Procedure(s) Performed: PREOPERATIVE DIAGNOSIS: 1- Lumbar Degenerative Disc Diseases 2-Lumbar spondylosis with Facet arthropathy without myelopathy. POSTOPERATIVE DIAGNOSIS: 1-lumbar degenerative disc disease. 2-lumbar spondylosis with facet arthropathy without myelopathy PROCEDURE 1. Lumbar epidural steroid injection under fluoroscopic guidance at the L5-S1 level. (Fluoroscopy imaging was available in radiology department) 2. Lumbar epidurogram. ANESTHESIA: Lidocaine 1% 3 and then only. EBL: Minimal PROCEDURE INDICATION: The patient with low back pain and radiculitis symptoms unresponsive to conservative treatment. Fluoroscopy was used to optimize visualization of the needle placement and to maximize safety. PROCEDURE DESCRIPTION / TECHNIQUE: The patient was seen and identified in the preoperative area. Risks, benefits, complications including but not limited to infections ,bleeding ,allergic reaction to the medications ,nerve damage and not complete pain releife , and alternatives were discussed with the patient. The patient agreed to proceed with the procedure and signed the consent, and vital signs were stable. Patient was taken to the OR and time out was completed. The patient was placed in the prone position on procedure table and a pillow was placed under the abdomen to reduce lumbar lordosis. The lumbosacral area was prepped and draped in the usual sterile fashion.ere closely monitored during the procedure. Vital signs was monitered during the entire procedure. Using anterior-posterior fluoroscopy, the L5-S1 interlaminar space was identified and the skin over this site was marked and then infiltrated with 1% lidocaine subcutaneously. Subsequently, a 20-gauge Tuohy epidural needle was inserted and advanced toward the epidural space using the ``Loss of resistance technique and guided by AP and lateral fluoroscopy. The correct needle position in the epidural space was verified with the injection of 2 mL of the water soluble contrast dye Isovue 200 contrast and observing an excellent epidurogram with the epidural spread of the dye, after negative aspiration for blood and CSF and in the absence of paresthesias. Again after negative aspiration, a 6 ml mixture containing 40 mg of Depo-medrol ( Preservetive Free ), and 2 ml of preservative free Normal Saline, and 2 ml of preservative free lidocaine 1% solution was injected and a washout of epidurogram was seen. Needle was withdrawn intact, skin was cleansed, and bandages were applied. COMPLICATIONS: None DISPOSITION / PLANS: The patient was placed in a supine position and transferred to the recovery area in a stable condition for observation. There was no evidence of lower extremity motor or sensory deficit after the procedure. Patient was discharged from the recovery room after meeting discharge criteria. Home discharge instructions were given to the patient by the staff. The patient was reexamined prior to discharge. The patient will schedule a follow up in the clinic in 2-4 weeks.
[2024-03-05 09:43] VITALS: BP 119/89; PULSE 67
--- NOTE | 2024-03-05 13:22 | FL ---
EXAMINATION TYPE: FL guided pain mgmt statistic DATE OF EXAM: 03/05/2024 FLUOROSCOPY Fluoroscopy time of 3 seconds was used during lumbar epidural steroid injection. 1 image/s document/ s the procedure. .65640 mGycm2 DAP dose
== END 2024-03-05 09:43 | disposition home or self-care (01) ==
LOC: ORPAIN 07:36
PROVIDERS: ATTEND Specialist
DX: M47.26 Other spondylosis with radiculopathy, lumbar region (principal); M51.16 Intervertebral disc disorders with radiculopathy, lumbar region; E11.9 Type 2 diabetes mellitus without complications
CPT/HCPCS: 62323; Q9966; J1010

== ENCOUNTER → 2024-03-28 | Outpatient (CLI) | payer MEDICARE ==
[2024-03-28 11:09] VITALS: BP 142/72; PULSE 78; RESP 15; TEMP 98.4
--- NOTE | 2024-03-28 11:33 | XR ---
EXAMINATION TYPE: XR lumbar spine 2 or 3V DATE OF EXAM: 03/28/2024 CLINICAL HISTORY: pain TECHNIQUE: Three views of the lumbar spine are submitted. COMPARISON: None. FINDINGS: There are 5 lumbar type vertebral bodies identified. The lumbar spine shows satisfactory alignment w ithout evidence of acute fracture or dislocation. Vertebral body heights are within normal limits. Mo derate to severe multilevel degenerative disc disease and spondylosis with endplate sclerosis and fac et joint arthropathy. The overlying soft tissue appears unremarkable. IMPRESSION: No acute fracture or dislocation is seen in the lumbar spine. ICD 10 NO FRACTURE, INITIAL EVALUATION
--- NOTE | 2024-03-28 11:39 | XR ---
EXAMINATION TYPE: XR ankle limited LT DATE OF EXAM: 03/28/2024 COMPARISON: NONE HISTORY: Pain TECHNIQUE: 3 views of the left ankle are submitted for evaluation. FINDINGS: There is no evidence for fracture or dislocation. Ankle mortise is intact. Moderate plantar and dorsal calcaneal spurs. Soft tissues are within normal limits. IMPRESSION: 1. No evidence for acute fracture.
--- NOTE | 2024-03-28 12:21 | XR ---
EXAMINATION TYPE: XR elbow limited RT DATE OF EXAM: 03/28/2024 CLINICAL HISTORY: pain TECHNIQUE: Frontal, lateral and oblique images of the right elbow are obtained. COMPARISON: None. FINDINGS: There is no acute fracture/dislocation evident of the elbow. No abnormal fat pad signs ar e seen. Dorsal compartment soft tissue edema noted. Mild olecranon spurring. Correlate for olecranon bursitis. IMPRESSION: There is no acute fracture or dislocation of the elbow. ICD 10 NO FRACTURE, INITIAL EVALUATION
--- NOTE | 2024-03-28 14:32 | P.PAINPG ---
PQRS Measure Charge Sheet Comment: A 68 yr old female with a history of severe and chronic LBP x 3 mo secondary to lumbar DDD and spondylosis with facet arthropathy without myelopathy presents today for evaluation s/p ASHLEY L5-S1 #3. Pt states she experienced 50 % pain relief x 3 wks s/p procedure. Pt fell on her cement driveway 2 days ago and sustained increased back pain, R elbow pain/ swelling/ contusion and L ankle pain/ swelling. Pain level is provoked at 6 /10 in intensity, constant, predominantly axial, localized in the lumbar spine, burning in character without shooting pain. Pain is provoked by prolonged activity for periods of 30 min or more. Pain is alleviated with PT in 2021, massage therapy monthly for yrs w last visit 3 wks ago, physician guided home exercises and stretches daily since Feb 2023, chiropractic treatments 1-2 times monthly x 4 yrs, heat, ice, medications, topical, walking/stretching, repositioning and rest. Oswestry axial pain score of 22. Interventional pain procedures completed include ASHLEY L5-S1 x4, T6-T7 Patient is currently on Ibu Patient denies any side effects of the medication(s), denies excessive drowsiness or sleepiness, denies suicidal ideation and reports that the current pain medication is helping to control the pain and improve activities of daily living. Patient denies any motor or sensory deficits. Patient denies any fever or night sweats, denies any change in the bowel movements or urination. Physical Examination: -Constitutional: Cooperative. Not in acute distress . - Neurologic: Cranial nerve II to XII intact. No focal neurological deficits. - Psychatric: Alert & oriented x 3. Matching mood & appropriate affect. Judgment and insight intact. - Musculoskeletal: Cervical spine: +L lateral epicondyle 1+ nonpitting edema, TTP w 3cm laceration Muscle bulk/ tone/ strength in the bilateral upper extremities normal Vertebral body tenderness to palpation over Spurling test positive Distraction test positive Facet loading test positive TTP Thoracic spine Muscle bulk / tone/ strength in the bilateral paraspinal muscles normal Vertebral body tender to palpation over Facet loading test positive TTP Lumbar spine: +R ankle w 2+nonpitting edema and diffuse TTP Motor bulk/ tone/ strength lower extremities , thigh and legs : 5/5 Deep tendon reflexes : Normal Knee Jerk. Normal Ankle Jerk . Vertebral body tenderness to palpation over L5 Abreu Test positive Lumbar Facet Loading Test positive Straight Leg Raise: positive at 30 degrees right side/ left side Gaenslen's Test positive Sacral spine : Severe tenderness over the Sacroiliac joint: right side / left side Range of motion: Flexion of the lumbar spine <60 degrees Range of motion: Extension of the lumbar spine <20 degrees Gaenslen's Test positive right side / left side Reed test: positive right side / left side Thigh Thrust Test positive right side / left side Sacral Thrust Test positive right side / left side Imaging: MRI non contrast of the lumbar spine from May 2022 reviewed Assessment and plan: Chronic LBP secondary to lumbar DDD, spondylosis with facet arthropathy without myelopathy, R elbow & L ankle contusion s/p fall Recommendation of lumbar x ray M51.36. May need additional testing if indicated. Would benefit from R elbow/ L ankle x rays to rule out fracture s/p fall. All questions answered. I have spent less than 30 minutes on patient care today. Dr Gomez was available by phone for the evaluation of this patient. The time was used to review the medical records including relevant urine studies and Prescription history (MAPs), review of the available imaging, evaluation and examination of the patient, coordination of care with the medical staff and if applicable referring physicians, as well as creation of the medical record PQRS Narrative: Smoking Status Never smoker Narcotic Agreement Date Signed 09/27/21 Hx Alcohol Use (MH) Yes: occ Home Medications: Ambulatory Orders Cholecalciferol [Vitamin D3 (25 Mcg = 1000 Iu)] 1,000 unit PO DAILY 04/06/17 Cinnamon Bark [Cinnamon] 500 mg PO BID 04/06/17 Sertraline [Zoloft] 100 mg PO QAM 04/06/17 Simvastatin 80 mg PO HS 04/06/17 Triamterene/Hydrochlorothiazid [Triamterene-Hctz 37.5-25 mg Tb] 1 each PO QAM 04/06/17 Kingfisher-3 Fatty Acids/Fish Oil [Fish Oil 1,000 mg Softgel] 1 each PO DAILY 05/20/21 Famotidine [Pepcid AC] 10 mg PO BID PRN 07/22/21 Etodolac [Lodine] 500 mg PO BID 05/19/23 Cyanocobalamin (Vitamin B-12) [Vitamin B-12] 1,000 mcg PO DAILY 02/26/24 oxyBUTYnin chloride [Ditropan] 5 mg PO DAILY 02/26/24 Omeprazole [PriLOSEC] 20 mg PO -BRKFST #90 cap 02/27/24 Controlled Substance Measures - Controlled Substance Measures Is patient prescribed a controlled substance at discharge?: No
== END ==
LOC: PNWHC3 09:16
PROVIDERS: ATTEND Specialist
DX: S53.401A Unspecified sprain of right elbow, initial encounter (principal); S93.402A Sprain of unspecified ligament of left ankle, initial encounter; M51.36 Other intervertebral disc degeneration, lumbar region; M47.816 Spondylosis without myelopathy or radiculopathy, lumbar region; W19.XXXA Unspecified fall, initial encounter
CPT/HCPCS: 72100; 73070; 73600; G0463; 99211

== ENCOUNTER → 2024-04-18 | Outpatient (CLI) | payer MEDICARE ==
--- NOTE | 2024-04-19 00:14 | MR ---
EXAMINATION TYPE: MR lumbar spine wo con DATE OF EXAM: 04/18/2024 COMPARISON: Lumbar spine x-ray March 28, 2024 HISTORY: Low back pain into left lower extremity. Other intervertebral disc degeneration. TECHNIQUE: Multiplanar, multisequence imaging of the lumbar spine is performed without IV contrast. FINDINGS: Sagittal images of the lumbar spine show vertebral body heights to remain satisfactory. The re is grade 1 retrolisthesis L3 on L4. Multilevel disc desiccation is present. Mild to moderate disc space narrowing with heterogeneous more detailed to endplate changes and moderate spurring at L3-L4 l evel. Vacuum disc phenomenon with mild disc space narrowing at L4-L5 level. The conus medullaris is n ormal in position and signal ending inferior L1 level. Additional moderate multilevel anterior and la teral spurring is present. Large osseous hemangioma involving L3 vertebra sagittal image 10 is noted. Axial images at T12-L1 levels show mild broad disc bulge minimally effacing anterior thecal. Axial images at L1-L2 level shows mild broad-based posterior disc protrusion mildly effaces the anter ior thecal sac. Axial images at L2-L3 levels [id number] broad disc bulge without left paracentral disc protrusi on component effacing the left anterolateral thecal sac. Patent bilateral neural foramina. Axial images at L3-L4 level shows spondylolisthesis along with moderate broad disc bulge effacing the anterior thecal sac. There is mild to moderate facet arthropathy and ligamentum flavum hypertrophy. There is mild/moderate right greater than left bilateral neural foraminal narrowing. Axial images at L4-L5 level show [id number] broad disc bulge mildly effaces the anterior thecal sac. There is moderate facet arthropathy ligament flavum hypertrophy effacing the bilateral posterio r lateral thecal sac. There is moderate bilateral neural foraminal narrowing seen. Some encroachment along inferior aspect right L4 nerve sagittal image 12 and left anterolateral L4 nerve sagittal image 3 is noted. Axial images at L5-S1 level show moderate to advanced facet arthropathy bilaterally. There is mild br oad disc bulge with left foraminal disc protrusion component causing moderate to advanced left-sided neural foraminal narrowing sagittal image 4. Right-sided neural foramen is mildly narrowed. Spinal ca nal is preserved. IMPRESSION: Multilevel degenerative changes in the lumbar spine as detailed above. Attention to L5-S1 level where eccentric left foraminal disc protrusion causes advanced left-sided neural foraminal jim rowing and likely encroachment of the exiting left L5 nerve correlating with patient's symptoms.
== END | disposition home or self-care (01) ==
LOC: RADMRIMAIN 15:20
PROVIDERS: ATTEND Specialist
DX: M51.37 Other intervertebral disc degeneration, lumbosacral region (principal); M47.816 Spondylosis without myelopathy or radiculopathy, lumbar region; M51.27 Other intervertebral disc displacement, lumbosacral region; M99.73 Connective tissue and disc stenosis of intervertebral foramina of lumbar region
CPT/HCPCS: 72148

== ENCOUNTER → 2024-04-29 | Outpatient (CLI) | payer MEDICARE ==
[2024-04-29 10:30] VITALS: BP 146/83; PULSE 87; RESP 16; TEMP 96.2
--- NOTE | 2024-04-29 15:01 | P.PAINPG ---
PQRS Measure Charge Sheet Comment: A 66 yr old female with a history of severe and chronic LBP x 3 mo secondary to lumbar DDD and spondylosis with facet arthropathy without myelopathy presents today for evaluation. Pain level is provoked at 8 /10 in intensity, constant, predominantly axial, localized in the lumbar spine, burning in character without shooting pain. Pain is provoked by prolonged activity for periods > 30 min. Pain is alleviated with PT in 2021, massage therapy monthly for yrs w last visit 3 wks ago, physician guided home exercises and stretches daily since Feb 2023, chiropractic treatments 1-2 times monthly x 4 yrs which she is currently in, heat & ice, medications, topical, walking/stretching, repositioning and rest. Oswestry axial pain score of 22. Interventional pain procedures completed include ASHLEY L5-S1 x4, T6-T7 Patient is currently on Ibu Patient denies any side effects of the medication(s), denies excessive drowsiness or sleepiness, denies suicidal ideation and reports that the current pain medication is helping to control the pain and improve activities of daily living. Patient denies any motor or sensory deficits. Patient denies any fever or night sweats, denies any change in the bowel movements or urination. Physical Examination: -Constitutional: Cooperative. Not in acute distress . - Neurologic: Cranial nerve II to XII intact. No focal neurological deficits. - Psychatric: Alert & oriented x 3. Matching mood & appropriate affect. Judgment and insight intact. - Musculoskeletal: Cervical spine: +L lateral epicondyle 1+ nonpitting edema, TTP w 3cm laceration Muscle bulk/ tone/ strength in the bilateral upper extremities normal Vertebral body tenderness to palpation over Spurling test positive Distraction test positive Facet loading test positive TTP Thoracic spine Muscle bulk / tone/ strength in the bilateral paraspinal muscles normal Vertebral body tender to palpation over Facet loading test positive TTP Lumbar spine: +R ankle w 2+nonpitting edema and diffuse TTP Motor bulk/ tone/ strength lower extremities , thigh and legs : 5/5 Deep tendon reflexes : Normal Knee Jerk. Normal Ankle Jerk . Vertebral body tenderness to palpation over L5 Abreu Test positive Lumbar Facet Loading Test positive Straight Leg Raise: positive at 30 degrees right side/ left side Gaenslen's Test positive Sacral spine : Severe tenderness over the Sacroiliac joint: right side / left side Range of motion: Flexion of the lumbar spine <60 degrees Range of motion: Extension of the lumbar spine <20 degrees Gaenslen's Test positive right side / left side Reed test: positive right side / left side Thigh Thrust Test positive right side / left side Sacral Thrust Test positive right side / left side Imaging: MRI non contrast of the lumbar spine from 04/18/24reviewed Assessment and plan: Chronic LBP secondary to lumbar DDD, spondylosis with facet arthropathy without myelopathy, R elbow & L ankle contusion s/p fall Recommendation of follow up when pain is less manageable. All questions answered. I have spent less than 30 minutes on patient care today. Dr Gomez was available by phone for the evaluation of this patient. The time was used to review the medical records including relevant urine studies and Prescription history (MAPs), review of the available imaging, evaluation and examination of the patient, coordination of care with the medical staff and if applicable referring physicians, as well as creation of the medical record PQRS Narrative: Smoking Status Never smoker Narcotic Agreement Date Signed 09/27/21 Hx Alcohol Use (MH) Yes: occ Home Medications: Ambulatory Orders Cholecalciferol [Vitamin D3 (25 Mcg = 1000 Iu)] 1,000 unit PO DAILY 04/06/17 Cinnamon Bark [Cinnamon] 500 mg PO BID 04/06/17 Sertraline [Zoloft] 100 mg PO QAM 04/06/17 Simvastatin 80 mg PO HS 04/06/17 Triamterene/Hydrochlorothiazid [Triamterene-Hctz 37.5-25 mg Tb] 1 each PO QAM 04/06/17 Mcleod-3 Fatty Acids/Fish Oil [Fish Oil 1,000 mg Softgel] 1 each PO DAILY 05/20/21 Famotidine [Pepcid AC] 10 mg PO BID PRN 07/22/21 Etodolac [Lodine] 500 mg PO BID 05/19/23 Cyanocobalamin (Vitamin B-12) [Vitamin B-12] 1,000 mcg PO DAILY 02/26/24 oxyBUTYnin chloride [Ditropan] 5 mg PO DAILY 02/26/24 Omeprazole [PriLOSEC] 20 mg PO AC-BRKFST #90 cap 02/27/24 Controlled Substance Measures - Controlled Substance Measures Is patient prescribed a controlled substance at discharge?: No
== END ==
LOC: PNWHC3 10:15
PROVIDERS: ATTEND Specialist
DX: S90.02XA Contusion of left ankle, initial encounter (principal); S50.01XA Contusion of right elbow, initial encounter; M51.36 Other intervertebral disc degeneration, lumbar region; M47.816 Spondylosis without myelopathy or radiculopathy, lumbar region; W19.XXXA Unspecified fall, initial encounter
CPT/HCPCS: 99211

== ENCOUNTER → 2024-05-07 | Outpatient (CLI) | payer MEDICARE ==
[2024-05-07 18:50] LABS: HCT 41.4 % (37.2-46.3); HGB 13.3 g/dL (12.0-15.0); MCH 29.4 pg (27.0-32.0); MCHC 32.1 g/dL (32.0-37.0); MCV 91.4 FL (80.0-97.0); Mean Platelet Volume 10.6 FL (9.5-12.2); NRBC Per 100 WBC 0 X 10*3/uL (0.00-0.01); Platelet Count 255 X 10*3/uL (140-440); RBC 4.53 X 10*6/uL (4.10-5.20); RDW 12.3 % (11.5-14.5); WBC 7.05 X 10*3/uL (4.50-10.00)
[2024-05-07 19:16] LABS: ALT 40 U/L (8-44); AST 38 U/L (13-35); BUN/Creat Ratio 20.62 Ratio (12.00-20.00); Blood Urea Nitrogen 16.5 mg/dL (9.0-27.0); Calcium 10.3 mg/dL (8.7-10.3); Carbon Dioxide 24.6 mmol/L (21.6-31.8); Chloride 106 mmol/L (96-109); Glucose 115 mg/dL (70-110); Potassium 4.5 mmol/L (3.5-5.5); Sodium 143 mmol/L (135-145)
== END | disposition home or self-care (01) ==
LOC: LABWHC1 15:41
PROVIDERS: ATTEND Family Medicine
DX: I10 Essential (primary) hypertension (principal); E11.9 Type 2 diabetes mellitus without complications
CPT/HCPCS: 36415; 80048; 83036; 84450; 84460; 85027

== ENCOUNTER → 2024-06-19 | Outpatient (CLI) | payer MEDICARE | LOC: PNWHC3 14:00 | CPT/HCPCS: 99211 ==

== ENCOUNTER 2024-07-11 08:38 | Day surgery (SDC) | payer MEDICARE ==
[2024-07-11 09:04] VITALS: TEMP 97.3
[2024-07-11] MEDS ORDERED: IOPAMIDOL M200 10 ML VIAL ONE (09:44)
[2024-07-11] MEDS ORDERED: methylPREDNISolone ACETATE 80 MG/ML 1 ML VIAL ONE (09:44)
--- NOTE | 2024-07-11 09:53 | P.PCN ---
Date of Procedure: 07/11/24 Procedure(s) Performed: PREOPERATIVE DIAGNOSIS: 1- Lumbar Degenerative Disc Diseases 2-Lumbar spondylosis with Facet arthropathy without myelopathy. POSTOPERATIVE DIAGNOSIS: 1-lumbar degenerative disc disease. 2-lumbar spondylosis with facet arthropathy without myelopathy PROCEDURE 1. Lumbar epidural steroid injection under fluoroscopic guidance at the L5-S1 level. (Fluoroscopy imaging was available in radiology department) 2. Lumbar epidurogram. ANESTHESIA: Lidocaine 1% 3 and then only. EBL: Minimal PROCEDURE INDICATION: The patient with low back pain and radiculitis symptoms unresponsive to conservative treatment. Fluoroscopy was used to optimize visualization of the needle placement and to maximize safety. PROCEDURE DESCRIPTION / TECHNIQUE: The patient was seen and identified in the preoperative area. Risks, benefits, complications including but not limited to infections ,bleeding ,allergic reaction to the medications ,nerve damage and not complete pain releife , and alternatives were discussed with the patient. The patient agreed to proceed with the procedure and signed the consent, and vital signs were stable. Patient was taken to the OR and time out was completed. The patient was placed in the prone position on procedure table and a pillow was placed under the abdomen to reduce lumbar lordosis. The lumbosacral area was prepped and draped in the usual sterile fashion.ere closely monitored during the procedure. Vital signs was monitered during the entire procedure. Using anterior-posterior fluoroscopy, the L5-S1 interlaminar space was identified and the skin over this site was marked and then infiltrated with 1% lidocaine subcutaneously. Subsequently, a 20-gauge Tuohy epidural needle was inserted and advanced toward the epidural space using the ``Loss of resistance technique and guided by AP and lateral fluoroscopy. The correct needle position in the epidural space was verified with the injection of 2 mL of the water soluble contrast dye Isovue 200 contrast and observing an excellent epidurogram with the epidural spread of the dye, after negative aspiration for blood and CSF and in the absence of paresthesias. Again after negative aspiration, a 6 ml mixture containing 60 mg of Depo-medrol ( Preservetive Free ), and 2 ml of preservative free Normal Saline, and 2 ml of preservative free lidocaine 1% solution was injected and a washout of epidurogram was seen. Needle was withdrawn intact, skin was cleansed, and bandages were applied. COMPLICATIONS: None DISPOSITION / PLANS: The patient was placed in a supine position and transferred to the recovery area in a stable condition for observation. There was no evidence of lower extremity motor or sensory deficit after the procedure. Patient was discharged from the recovery room after meeting discharge criteria. Home discharge instructions were given to the patient by the staff. The patient was reexamined prior to discharge. The patient will schedule a follow up in the clinic in 2-4 weeks.
[2024-07-11 10:01] VITALS: RESP 16
[2024-07-11 10:13] VITALS: BP 121/63; PULSE 67
--- NOTE | 2024-07-11 10:16 | FL ---
EXAMINATION TYPE: FL guided pain mgmt statistic DATE OF EXAM: 07/11/2024 HISTORY: Fluoroscopy time Total dose area product (DAP) in uGy*m?, mGy*cm? (or similar): 0.29486 IMPRESSION: 1. Fluoroscopy time.
== END 2024-07-11 10:16 | disposition home or self-care (01) ==
LOC: ORPAIN 08:38
PROVIDERS: ATTEND Specialist
DX: M47.26 Other spondylosis with radiculopathy, lumbar region (principal); M51.16 Intervertebral disc disorders with radiculopathy, lumbar region
CPT/HCPCS: 62323

== ENCOUNTER → 2024-07-22 | Outpatient (CLI) | payer MEDICARE ==
[2024-07-22 15:55] LABS: INR 0.9 (<1.2); Partial Thromboplastin Time 21.9 sec (22.0-30.0); Prothrombin Time 10.4 sec (10.0-12.5)
[2024-07-22 18:23] LABS: Basophils # (A) 0.07 X 10*3/uL (0.00-0.10); Basophils % (A) 0.9 %; Eosinophils # (A) 0.25 X 10*3/uL (0.04-0.35); Eosinophils % (A) 3.1 %; HCT 40.9 % (37.2-46.3); HGB 13.2 g/dL (12.0-15.0); Lymphocytes # (A) 2.41 X 10*3/uL (0.90-5.00); MCH 29.5 pg (27.0-32.0); MCHC 32.3 g/dL (32.0-37.0); MCV 91.5 FL (80.0-97.0); Mean Platelet Volume 10.7 FL (9.5-12.2); Monocytes % (A) 7.5 %; NRBC Per 100 WBC 0 X 10*3/uL (0.00-0.01); Neutrophils # (A) 4.66 X 10*3/uL (1.80-7.70); Platelet Count 241 X 10*3/uL (140-440); RBC 4.47 X 10*6/uL (4.10-5.20); RDW 12.5 % (11.5-14.5); WBC 8.03 X 10*3/uL (4.50-10.00)
[2024-07-22 19:16] LABS: Appearance,Urine Clear (Clear); Bilirubin,Urine Negative (Negative); Blood,Urine Negative (Negative); Color,Urine Yellow (Yellow); Ketones,Urine Negative (Negative); Nitrite,Urine Negative (Negative); PH, Urine 5.5; Specific Gravity,Urine 1.023 (1.001-1.030)
[2024-07-22 19:19] LABS: ALT 25 U/L (8-44); AST 22 U/L (13-35); Albumin 4.5 g/dL (3.8-4.9); Albumin/Globulin Ratio 2.05 Ratio (1.60-3.17); Alkaline Phosphatase 100 U/L (41-126); BUN/Creat Ratio 30.17 Ratio (12.00-20.00); Blood Urea Nitrogen 18.1 mg/dL (9.0-27.0); Calcium 10.6 mg/dL (8.7-10.3); Carbon Dioxide 22.7 mmol/L (21.6-31.8); Chloride 107 mmol/L (96-109); Globulin 2.2 g/dL (1.6-3.3); Glucose 124 mg/dL (70-110); Potassium 4.3 mmol/L (3.5-5.5); Sodium 142 mmol/L (135-145); Total Bilirubin 0.5 mg/dL (0.3-1.2); Total Protein 6.7 g/dL (6.2-8.2)
== END ==
LOC: LABWHC1 14:27
PROVIDERS: ATTEND Family Medicine
DX: K29.70 Gastritis, unspecified, without bleeding (principal)
CPT/HCPCS: 36415; 80053; 81003; 83013; 83036; 85025; 85610; 85730

== ENCOUNTER → 2024-08-06 | Outpatient (CLI) | payer MEDICARE ==
[2024-08-06 17:51] LABS: Prothrombin Time 10.7 sec (10.0-12.5)
[2024-08-06 21:00] LABS: ALT 22 U/L (8-44); AST 22 U/L (13-35); Albumin 4.7 g/dL (3.8-4.9); Albumin/Globulin Ratio 1.74 Ratio (1.60-3.17); Alkaline Phosphatase 106 U/L (41-126); BUN/Creat Ratio 26.57 Ratio (12.00-20.00); Blood Urea Nitrogen 18.6 mg/dL (9.0-27.0); Calcium 10.8 mg/dL (8.7-10.3); Carbon Dioxide 24.6 mmol/L (21.6-31.8); Chloride 103 mmol/L (96-109); Globulin 2.7 g/dL (1.6-3.3); Glucose 137 mg/dL (70-110); Potassium 4.2 mmol/L (3.5-5.5); Sodium 141 mmol/L (135-145); Total Bilirubin 0.5 mg/dL (0.3-1.2); Total Protein 7.4 g/dL (6.2-8.2)
[2024-08-06 21:15] LABS: HCT 43.8 % (37.2-46.3); HGB 14.4 g/dL (12.0-15.0); MCH 29.9 pg (27.0-32.0); MCHC 32.9 g/dL (32.0-37.0); MCV 91.1 FL (80.0-97.0); Mean Platelet Volume 11.1 FL (9.5-12.2); NRBC Per 100 WBC 0 X 10*3/uL (0.00-0.01); Platelet Count 288 X 10*3/uL (140-440); RBC 4.81 X 10*6/uL (4.10-5.20); RDW 12.1 % (11.5-14.5); WBC 7.45 X 10*3/uL (4.50-10.00)
== END | disposition home or self-care (01) ==
LOC: LABWHC1 16:35
PROVIDERS: ATTEND Orthopaedic Surgery
DX: Z01.818 Encounter for other preprocedural examination (principal); Z22.322 Carrier or suspected carrier of Methicillin resistant Staphylococcus aureus; M17.11 Unilateral primary osteoarthritis, right knee; R94.31 Abnormal electrocardiogram [ECG] [EKG]
CPT/HCPCS: 80053; 85027; 85610; 85730; 87070; 93005

== ENCOUNTER 2024-08-12 10:44 | Observation (INO) | payer MEDICARE ==
[2024-08-02 16:20] VITALS: BMI 35.7
[~2024-08-12 10:44] MED LIST changes: -LACTATED RINGERS 1,000 ML IV SCH; +LIDOCAINE 1% (10MG/ML) FOR IV START INTRADERMA PRN; +ONDANSETRON 4 MG/2 ML VIAL IVP PRN; +TRANEXAMIC 1,000 MG/100ML-NACL 1,000 MG in SALINE 1 100ML.BAG IVPB PRN; +droPERidol 5 MG/2 ML VIAL IVP PRN
[2024-08-12 11:42] LABS: Glucose,Whole Blood 150 mg/dL (70-110)
[2024-08-12] MEDS: IV FLUID CONTINUATION 1,000 ML IV ONE ×2 (11:47→15:10)
[2024-08-12] MEDS: ACETAMINOPHEN TAB 500 MG TAB PO PRN (11:52)
[2024-08-12] MEDS: MELOXICAM 7.5 MG TAB PO PRN (11:52)
[2024-08-12] MEDS: DEXAMETHASONE SOD PHOSPHATE 4 MG/ML 1 ML VIAL IV ONE (11:53)
[2024-08-12] MEDS: ONDANSETRON 4 MG/2 ML VIAL IVP ONE (11:53)
[2024-08-12] MEDS: fentaNYL (PF) 50 MCG/ML 2 ML AMP IVP PRN (12:02)
[2024-08-12] MEDS: MIDAZOLAM 2 MG/2 ML VIAL IV ONE (12:03)
[2024-08-12] MEDS ORDERED: fentaNYL (PF) 50 MCG/ML 2 ML AMP ONE (12:29)
[2024-08-12] MEDS ORDERED: PHENYLEPHRINE 10 MG/ML VIAL ONE (12:29)
[2024-08-12] MEDS ORDERED: SODIUM CHLORIDE 0.9% (PF) 10 ML VIAL ONE (12:29)
[2024-08-12] MEDS ORDERED: PROPOFOL 10 MG/ML 20 ML VIAL IV ONE (12:29)
[2024-08-12] MEDS ORDERED: TRANEXAMIC 1,000 MG/100ML-NACL PREMIX BAG ONE (12:29)
[2024-08-12] MEDS ORDERED: ROPIVACAINE 5 MG/ML 30 ML VIAL ONE (12:29)
[2024-08-12] MEDS ORDERED: MIDAZOLAM 2 MG/2 ML VIAL ONE (12:29)
[2024-08-12] MEDS: ceFAZolin 1,000 MG in SODIUM CHLORIDE 0.9% 1,000 ML IRRIGATION ONE (12:30)
[2024-08-12] MEDS: LACTATED RINGERS 1,000 ML IV ONE (14:23)
--- NOTE | 2024-08-12 14:40 | P.OP ---
Date of Procedure: 08/12/24 Procedure(s) Performed: PREOPERATIVE DIAGNOSIS: Right knee severe osteoarthritis with genu varum POSTOPERATIVE DIAGNOSIS: Right knee severe osteoarthritis with genu varum; 2. Diminished bone quality/osteopenia/osteoporosis OPERATION: Right knee cemented total replacement arthroplasty. ANESTHESIA: Spinal and regional catheter for postoperative pain control (ACB) and IPAC block ESTIMATED BLOOD LOSS: 150 ml. CONTINUITY MANAGER: Mckenna Reynolds PA-C (assistance with: patient positioning, retraction, exposure, hemostasis, leg positioning, implantation, irrigation, closure, dressing) COMPLICATIONS: None apparent. COMPONENTS IMPLANTED: Persona system from [employer] with tibial stem extension INDICATIONS: Rosina is a 69 year old female with a history of severe knee osteoarthritis. She has successfully undergone left knee replacement several months ago. The patient's right knee is end-stage, and conservative management has failed. The operation of knee replacement has been discussed at length in the office, as well as potential risks and complications. These are inclusive of, but not limited to: bleeding, infection, scarring, discomfort, blood vessel and nerve damage, need for further surgery, failure to relieve symptoms, persistence, recurrence, or worsening of problems, loosening, dislocation, wear, blood clot, pulmonary embolism, , gait dysfunction, stiffness, and other risks as discussed in the office. The patient elects to proceed and the consent form has been signed. PROCEDURE: The patient was taken to the operating room and positioned on the operating room table in the supine position. Anesthesia was initiated. Care was taken to make sure that all pressure points were adequately padded. The operative lower extremity was prepped and draped in the usual aseptic fashion using ChloraPrep. Ioban drape was used for the case and the patient received intravenous antibiotics within one hour of the incision. A pneumotourniquet and leg hidalgo were used for the case. The limb was exsanguinated with an Esmarch bandage and the tourniquet was inflated to 300 mmHg. Time-out was called confirming the patient's identity, side, procedure and administration of antibiotics. The incision was then created midline directly over the knee, carried down through skin and into the subcutaneous tissues and down to fascia. Full thickness subcutaneous medial flap was developed, and it was noted that she had previous surgery in this area, likely related to patellar tendon modification for apparent previous patellar instability. Medial parapatellar arthrotomy was performed and the interior of the knee was inspected. There was end-stage osteoarthritis of the knee with a mild to moderate genu varum type deformity. The fat pad was excised and proximal medial release on the tibia was completed using meticulous dissection and a curved osteotome. The anterior cruciate ligament was taken down. Note was made of significant attrition of the anterior and significant degenerative appearance of the posterior cruciate ligaments. The exposure was excellent,although several minutes were spent on removing degenerative debris, loose bodies, spurs, and scar tissue. The knee was flexed 90 degrees and the patella was everted. A spot was chosen on the femur approximately 1 cm anterior to the posterior cruciate ligament insertion and an intramedullary hole was created within the femur. The intramedullary guide was then set to 5 degrees of valgus. The distal cutting block was attached and pinned into position. An appropriate amount of distal femoral resection was set. The oscillating saw was then used to make the distal femoral cut. This cut was confirmed to be flat with the flat end of an osteotome. The retractors were placed around the tibia and the tibial surface was addressed. The angle and depth of resection was adjusted using an extramedullary cutting guide. The guide had a built-in 3 degree posterior slope cut. Once the cutting guide was adjusted appropriately and in line with the axis of the tibia and confirmed to be in good position in relation to the second metatarsal and transmalleolar axis, the tibial cut was then created with protection of the posterior neurovascular structures and the collateral ligaments. Note was made of diminished bone quality and therefore a short tibial stem extension was planned. The tibial cut surface was removed and sized. Femoral sizing was then accomplished using anterior referencing. Care was taken to analyze the posterior condyles for signs of deficiency or severe wear, and adjustments to the guide were made, as appropriate. 3 degree external rotation pins were placed. The cutting jig for the femur was applied to these pins. The planned cuts were further analyzed prior to performing them with the oscillating saw. No femoral notching was produced. Bone fragments were removed and the cut surfaces were finished, as necessary, with a reciprocating saw. Spacer block technique was then used to confirm that the flexion and extension gaps were equal. Soft tissue releases and adjustment of the tibial and/or femoral cuts were made, as necessary, until the gaps were equal. This included release of the posterior cruciate ligament, which was tight in this patient and, if left unreleased, would have resulted in poor kinematics and possibly early loosening. The femur was then further finished for a posterior cruciate ligament substituting component. Patellar resurfacing was performed using a reamer. The size of the required patellar component was estimated and the patellar surface was then reamed down to a residual thickness which would recreate the [place] thickness with the component. The exact placement of the patellar component was adjusted for position based on preoperative x-rays and intraoperative findings. The trial components were inserted. The tibial tray was allowed to self center and the patella was noted to track very well. The position of the tibial component was marked and the tibia was then finished for a stemmed tibial component. Cement was mixed on the back table and applied to the final components. Trial components were removed and the cut surfaces of the bone were pulse lavaged thoroughly and dried. Cement was then applied to the tibial surface and pressurized into the surface using finger pressurization technique. The tibial component with stem extension was then applied and excess cement was removed after it was impacted securely and noted to be flush with the cut surface. In similar fashion, the cement was applied to the cut femoral surface, pressurized in using finger pressurization and the component was impacted into place. Excess cement was removed. The polyethylene spacer was then implanted and locked into position. The patellar component was then applied in similar technique and a patellar clamp was used to hold the patella in place as the cement hardened. Once the cement had fully hardened, the knee was reinspected. Any other cement extrusion was removed and final kinematic testing showed range of motion from 0 to 130 degrees with excellent stability, both medially and laterally and appropriate alignment of the leg. Patellar tracking was excellent. The knee was then thoroughly pulse lavaged with normal saline. The tourniquet was deflated and hemostasis was obtained with electrocautery and IV tranexamic acid, 1 g given at the start of the operation and 1 g at the start of closure. Closure was with #2 Ethibond in the fascia/capsule and supplemented with #2 Quill, 2-0 Vicryl suture was used for the subcutaneous tissues and 3-0 Quill for the skin. Dermabond/Steri-Strips were then applied. A lightly compressive dressing was applied using Webril and an Delvis wrap. The patient was then transferred to stretcher and taken to the recovery room in stable condition. Sponge and needle counts were correct.
[2024-08-12] MEDS ORDERED: NALOXONE 0.4 MG/ML 1 ML VIAL IV PRN (15:15)
[2024-08-12] MEDS ORDERED: HYDROmorphone 0.5 MG/0.5 ML SYRINGE IVP PRN ×2 (15:15)
[2024-08-12] MEDS ORDERED: ONDANSETRON 4 MG/2 ML VIAL IVP PRN (15:15)
[2024-08-12] MEDS ORDERED: MAGNESIUM HYDROXIDE 2,400 MG/30 ML CUP PO PRN (15:15)
[2024-08-12] MEDS ORDERED: TEMAZEPAM 15 MG CAP PO PRN (15:15)
[2024-08-12] MEDS ORDERED: NA PHOS,M-B/NA PHOS,DI-BA 133 ML ENEMA RECTAL PRN (15:15)
[2024-08-12] MEDS ORDERED: bisacodyL 10 MG SUPP RECTAL PRN (15:15)
[2024-08-12] MEDS ORDERED: HYDROcodone/APAP 5-325MG 1 EACH TAB PO PRN (15:15)
[2024-08-12] MEDS: HYDROmorphone 0.5 MG/0.5 ML SYRINGE IVP PRN (15:22)
--- NOTE | 2024-08-12 15:48 | XR ---
EXAMINATION TYPE: XR knee limited RT DATE OF EXAM: 08/12/2024 3:41 PM CLINICAL INDICATION: Female, 69 years old with history of Evaluation for Postop abnormality and align ment; [facility] COMPARISON: None. TECHNIQUE: XR knee limited RT; examined in Frontal, lateral projections. FINDINGS: Status post total knee arthroplasty changes with hardware in appropriate alignment and in tact. No evidence of fracture. Subcutaneous lucencies and lucencies within the joint consistent with surgical changes. IMPRESSION: Status post total knee arthroplasty changes with hardware intact and appropriate alignment. No fractu res identified. [facility], , 08/12/2024 3:45 PM
[2024-08-12] MEDS ORDERED: ROPIVACAINE 1,100 MG, SODIUM CHLORIDE 0.9% 500 ML 330 ML, EMPTY PAIN BALL 1 EACH MISCELLANE PRN (16:49)
--- NOTE | 2024-08-12 16:59 | P.ANPRN ---
Procedure Note - Anesthesia - Nerve Block Performed Right Adductor Canal Infusion Time Out Performed: Yes (1154) Date of Procedure: 08/12/24 Procedure Start Time: 11:55 Procedure Stop Time: 12:00 Location of Patient: PreOp Indication: Acute Post-Operative Pain, Requested by Surgeon Specifically requested for management of pain by DrViry: Gavino Goodman Sedation Type: Sedate with meaningful contact maintained Preparation: Sterile Prep, Sterile Dressing Position: Supine Catheter Depth at Skin (cm): 7 Catheter: Indwelling Needle Types: Pajunk Needle Gauge: 18 Ultrasound used to visualize needle placement: Yes Ultrasound used to observe medication spread: Yes Injectate: 0.5% Ropivacaine (see comment for volume) (15cc +10cc nacl pf) Blood Aspirated: No Pain Paresthesia on Injection Noted: No Resistance on Injection: Normal Image Stored and Saved: Yes Events: Uneventful and Well Tolerated
--- NOTE | 2024-08-12 17:00 | P.ANPRN ---
Procedure Note - Anesthesia - Nerve Block Performed Right iPack Single Time Out Performed: Yes (1154) Date of Procedure: 08/12/24 Procedure Start Time: 12:01 Procedure Stop Time: 12:05 Location of Patient: PreOp Indication: Acute Post-Operative Pain, Requested by Surgeon Specifically requested for management of pain by DrViry: Gavino Goodman Sedation Type: Sedate with meaningful contact maintained Preparation: Sterile Prep Position: Supine Catheter: None Needle Types: Pajunk Needle Gauge: 21 Ultrasound used to visualize needle placement: Yes Ultrasound used to observe medication spread: Yes Injectate: 0.5% Ropivacaine (see comment for volume) (15cc +10cc nacl pf) Blood Aspirated: No Pain Paresthesia on Injection Noted: No Resistance on Injection: Normal Image Stored and Saved: Yes Events: Uneventful and Well Tolerated
--- NOTE | 2024-08-12 20:37 | P.CONS ---
History of Present Illness - Reason for Consult Consult date: 08/12/24 Medical management Requesting physician: Gavino Goodman - Chief Complaint Right knee surgery - History of Present Illness Pleasant 69-year-old patient who follows with Dr. Byrne. Chronic stable medical condition include hypertension, hyperlipidemia, osteoarthritis, GERD, urine incontinence. Back in 2018 patient had chemotherapy pill given for few months followed by right lower lobe resection. Gets annual CT scan. Also takes medication anxiety depression. Patient has undergone right total knee arthroplasty. Postprocedure pain is present. No nausea vomiting. Did tolerate a diet. Prior to surgery was cleared by cardiology. Review of systems: GEN.: Awake tired EYES: None HEENT: None NECK: None RESPIRATORY: None CARDIOVASCULAR: None GASTROINTESTINAL: None GENITOURINARY: Urine incontinence] MUSCULOSKELETAL: Joint pains e LYMPHATICS: None HEMATOLOGICAL: None PSYCHIATRY: None NEUROLOGICAL: None Social history: Lives alone. No smoking. Patient is adopted. Physical examination: VITAL SIGNS: 98.2, 81, 17, 137 x 71, 95% room air GENERAL: BMI 35.3, reclining bed awake not in distress. EYES: Pupils equal. Conjunctiva laura l. HEENT: External appearance of nose and ears normal, oral cavity grossly normal. NECK: JVD not raised; masses not palpable. HEART: First and second heart sounds are normal; no edema. LUNGS: Respiratory rate normal; clear to auscultation. ABDOMEN: Soft, nontender, liver spleen not palpable, no masses palpable. PSYCH: Alert and oriented x3; mood and affect laura l. MUSCULOSKELETAL:No Clubbing/cyanosis;muscles-grossly intact. Delvis wrap with dressing over the right knee NEUROLOGICAL: Cranial nerves grossly intact; no facial asymmetry, power and sensation grossly intact. LYMPHATICS: No lymph nodes palpable in the axilla and neck INVESTIGATIONS, reviewed in the clinical context: August 06: White count 7.4 hemoglobin 14.4 platelets 288 potassium 4.2 BUN 18.6 creatinine 0.7 Assessment plan: -Right total knee arthroplasty -Chronic urine incontinence Ditropan -Hyperlipidemia Simvastatin 80 mg nightly -Depression anxiety Zoloft 100 mg a day -Primary osteoarthritis Pain medication -History of lung cancer in 2018 treated with chemotherapy and lung resection -Obesity BMI 35.3 Weight loss measures Discussed with patient. Thank you Dr. Goodman Past Medical History Past Medical History: Cancer, Deep Vein Thrombosis (DVT), Hyperlipidemia, Hypertension, Pulmonary Embolus (PE) Additional Past Medical History / Comment(s): Hx right lung cancer 2018 and endometrial cancer 2012 Hx DVT left leg that turned into PE at age 23. Borderline Diabetes. Chronic back pain. History of Any Multi-Drug Resistant Organisms: None Reported Past Surgical History: Cholecystectomy, Hysterectomy, Orthopedic Surgery Additional Past Surgical History / Comment(s): RIGHT KNEE SURGERY, LEFT KNEE SURGERY-NO KNEE CAP, COLONOSCOPY, LUNG SURGERY - OF RIGHT LOWER LUNG REMOVED, PAIN CLINIC PROCEDURE, bilateral cataracts removed with lens implants, bone marrow biopsy, christina in left leg, bilateral carpal tunnel. Past Anesthesia/Blood Transfusion Reactions: No Reported Reaction Additional Past Anesthesia/Blood Transfusion Reaction / Comm: Adopted, family hx unknown. Past Psychological History: Anxiety, Depression Smoking Status: Never smoker Past Alcohol Use History: Occasional Past Drug Use History: None Reported - Past Family History Mother History Unknown: Yes Family Medical History: Unable to Obtain Additional Family Medical History / Comment(s): PT ADOPTED-FAMILY HHX UNKNOWN Medications and Allergies Home Medications Medication Instructions Recorded Confirmed Type Cholecalciferol [Vitamin D3 (25 1,000 unit PO QAM 04/06/17 08/12/24 History Mcg = 1000 Iu)] Cinnamon Bark [Cinnamon] 1,000 mg PO BID 04/06/17 08/12/24 History Sertraline [Zoloft] 100 mg PO QAM 04/06/17 08/12/24 History Simvastatin 80 mg PO HS 04/06/17 08/12/24 History Triamterene/Hydrochlorothiazid 1 each PO QAM 04/06/17 08/12/24 History [Triamterene-Hctz 37.5-25 mg Tb] [place]-3 Fatty Acids/Fish Oil [Fish 1 each PO HS 05/20/21 08/12/24 History Oil 1,000 mg Softgel] Etodolac [Lodine] 500 mg PO BID 05/19/23 08/12/24 History Cyanocobalamin (Vitamin B-12) 1,000 mcg PO QAM 02/26/24 08/12/24 History [Vitamin B-12] oxyBUTYnin chloride [Ditropan] 10 mg PO QAM 02/26/24 08/12/24 History Omeprazole [PriLOSEC] 20 mg PO -BRKFST #90 cap 02/27/24 08/12/24 Rx Cranberry Fruit Concentrate [Azo 250 mg PO QAM PRN 08/02/24 08/12/24 History Cranberry] Aspirin [Adult Low Dose Aspirin EC] 81 mg PO BID #1 tab 08/12/24 Rx HYDROcodone/APAP 7.5-325MG [[place] 1 - 2 tab PO Q6HR PRN #32 tab 08/12/24 Rx 7.5-325] Meloxicam 7.5 mg PO DAILY #30 tab 08/12/24 Rx Ondansetron Odt [Zofran Odt] 4 mg PO Q8HR PRN #14 tab 08/12/24 Rx Sennosides-Docusate Sodium 1 tab PO BID #60 tablet 08/12/24 Rx [Senokot-S] Allergies Allergy/AdvReac Type Severity Reaction Status Date / Time No Known Allergies Allergy Verified 08/12/24 11:33 Physical Exam Vitals: Vital Signs Temp Pulse Resp BP Pulse Ox 08/12/24 18:18 98.2 F 81 17 137/71 95 08/12/24 17:40 85 16 124/75 96 08/12/24 17:06 85 16 128/74 96 08/12/24 16:36 89 16 137/57 96 08/12/24 16:06 81 16 141/65 95 08/12/24 15:51 81 16 138/64 96 08/12/24 15:36 77 16 134/63 97 08/12/24 15:21 74 16 160/72 96 08/12/24 15:06 72 16 124/71 96 08/12/24 12:09 82 16 140/63 96 08/12/24 11:47 87 16 147/70 97 08/12/24 11:31 96.8 F L 96 16 172/72 93 L Intake and Output 08/12/24 08/12/24 08/12/24 06:59 14:59 22:59 Intake Total 1151 800 Output Total 150 Balance 1001 800 Intake: IV 1151 800 Output: Estimated Blood Loss 150 Other: # Voids 1 Weight 105.2 kg 105.2 kg Results Labs: Abnormal Lab Results - Last 24 Hours (Table) 08/12/24 Range/Units 11:40 POC Glucose (mg/dL) 150 H (70-110) mg/dL
[2024-08-13] MEDS: ATORVASTATIN 40 MG TAB PO SCH
[2024-08-13] MEDS: SENNOSIDES-DOCUSATE SODIUM 1 EACH TAB PO SCH
[2024-08-13] MEDS: ASPIRIN 81 MG PO SCH
[2024-08-13] MEDS: HYDROmorphone 0.5 MG/0.5 ML SYRINGE IVP PRN (00:24)
[2024-08-13] MEDS: LACTATED RINGERS 1,000 ML IV SCH (02:16)
[2024-08-13] MEDS: PANTOPRAZOLE 40 MG TABLET PO SCH (06:52)
--- NOTE | 2024-08-13 08:07 | P.PN ---
Progress Note - Text Progress Note Date: 08/13/24 (760) Anesthesiology Postop day 1 status post total knee arthroplasty with adductor canal catheter. Patient doing well. VAS 7 out of 10. Gross strength intact in lower extremity. Afebrile. Denies alterations in sensorium. Catheter site intact. Heart regular rate Lungs nonlabored Abdomen nondistended Assessment: Postop day 1 status post total knee arthroplasty with adductor canal catheter Plan: 1.All questions answered. Maintain catheter 2 more days with patient removal at home. Instructions to be given at discharge. 2.This note was dictated using [employer] software. Please be advised there is a potential for misspellings or errors in behavior therapist.
[2024-08-13 08:34] LABS: Basophils # (A) 0.01 X 10*3/uL (0.00-0.10); Basophils % (A) 0.1 %; Eosinophils # (A) 0 X 10*3/uL (0.04-0.35); Eosinophils % (A) 0 %; HCT 34.1 % (37.2-46.3); HGB 11.2 g/dL (12.0-15.0); Lymphocytes # (A) 1.18 X 10*3/uL (0.90-5.00); Lymphocytes % (A) 9.1 %; MCH 30.2 pg (27.0-32.0); MCHC 32.8 g/dL (32.0-37.0); MCV 91.9 FL (80.0-97.0); Mean Platelet Volume 11.5 FL (9.5-12.2); Monocytes # (A) 1.09 X 10*3/uL (0.20-1.00); Monocytes % (A) 8.4 %; NRBC Per 100 WBC 0 X 10*3/uL (0.00-0.01); Neutrophils # (A) 10.57 X 10*3/uL (1.80-7.70); Neutrophils % (A) 81.9 %; Platelet Count 223 X 10*3/uL (140-440); RBC 3.71 X 10*6/uL (4.10-5.20); RDW 12.1 % (11.5-14.5); WBC 12.92 X 10*3/uL (4.50-10.00)
--- NOTE | 2024-08-13 09:00 | P.PN ---
Subjective Progress Note Date: 08/13/24 Principal diagnosis: Status post right total knee arthroplasty This is a 69 year-old female post right total knee arthroplasty. This is post- op day 1. The patient was evaluated at the bedside today. The patient denies abdominal pain, shortness of breath, and chest pain this morning. She states she is nauseated and has vomited a few times since last night. She states her pa in is moderately controlled at this time. The patient has not been up with physical therapy. Objective - Vital Signs Vital signs: Vital Signs Temp 98.1 F 08/13/24 01:20 Pulse 89 08/13/24 01:20 Resp 20 08/13/24 02:17 BP 125/68 08/13/24 01:20 Pulse Ox 92 L 08/13/24 01:20 FiO2 Intake & Output 08/12/24 08/13/24 08/13/24 18:59 06:59 18:59 Intake Total 1950 Output Total 150 Balance 1801 Weight 105.2 kg Intake: IV 1950 Output: Estimated Blood Loss 150 Other: Voiding Method Bedpan # Voids 1 3 - Exam The patient does not appear in acute distress. Alert and orientated x3. Dressing is clean dry and intact. Incision appears fine with no erythema or active drainage. Calf is soft and nontender. Good foot and ankle motion without difficulty. Sensation and circulatory status is intact. - Labs CBC & Chem 7: 08/13/24 02:28 Labs: Abnormal Lab Results - Last 24 Hours (Table) 08/12/24 08/13/24 Range/Units 11:40 02:28 WBC 12.92 H (4.50-10.00) X 10*3/uL RBC 3.71 L (4.10-5.20) X 10*6/uL Hgb 11.2 L (12.0-15.0) g/dL Hct 34.1 L (37.2-46.3) % Immature Gran # 0.07 H (0.00-0.04) X 10*3/uL Neutrophils # 10.57 H (1.80-7.70) X 10*3/uL Monocytes # 1.09 H (0.20-1.00) X 10*3/uL Eosinophils # 0 L (0.04-0.35) X 10*3/uL POC Glucose (mg/dL) 150 H (70-110) mg/dL Assessment and Plan (1) Primary osteoarthritis of right knee Current Visit: Yes Status: Acute Code(s): M17.11 - UNILATERAL PRIMARY OSTEOARTHRITIS, RIGHT KNEE SNOMED Code(s): 545987748983554 (2) Status post total right knee replacement using cement Current Visit: Yes Status: Acute Code(s): Z96.651 - PRESENCE OF RIGHT ARTIFICIAL KNEE JOINT SNOMED Code(s): 0315439420374 Plan: 1. Continue pain and nausea control 2. Anticoagulation with Aspirin 3. Start physical therapy and ambulation 4. Anticipate discharge home with homecare likely tomorrow.
[2024-08-13] MEDS: oxyBUTYnin chloride 5 MG TAB PO SCH (09:37)
[2024-08-13] MEDS: MELOXICAM 7.5 MG TAB PO SCH (09:37)
[2024-08-13] MEDS: SERTRALINE 100 MG TAB PO SCH (09:37)
[2024-08-13] MEDS: CHOLECALCIFEROL 25 MCG (1000 IU) TABLET PO SCH (09:38)
[2024-08-13] MEDS: HYDROcodone/APAP 5-325MG 1 EACH TAB PO PRN (09:38)
[2024-08-13] MEDS: TRIAMTERENE-HCTZ 37.5-25MG 1 EACH CAP PO SCH (09:38)
[2024-08-13] MEDS: CYANOCOBALAMIN 500 MCG TAB PO SCH (09:38)
[2024-08-13] MEDS: FERROUS SULFATE 325 MG TAB PO SCH (13:28)
--- NOTE | 2024-08-13 15:31 | P.PN ---
Progress Note - Text Progress Note Date: 08/13/24 - Chief Complaint Right knee surgery - History of Present Illness Pleasant 69-year-old patient who follows with Dr. Byrne. Chronic stable medical condition include hypertension, hyperlipidemia, osteoarthritis, GERD, urine incontinence. Back in 2018 patient had chemotherapy pill given for few months followed by right lower lobe resection. Gets annual CT scan. Also takes medication anxiety depression. Patient has undergone right total knee arthroplasty. Postprocedure pain is present. No nausea vomiting. Did tolerate a diet. Prior to surgery was cleared by cardiology. August 13: Having pain at operative site. Did tolerate a diet. No nausea vomiting. Drop in hemoglobin. Ferrous sulfate added. Discussed. Activity with PT OT. Active Medications Hydrocodone Bitart/Acetaminophen (Hydrocodone/Apap 5-325mg 1 Each Tab) 1 each PO Q6HR PRN PRN Reason: Pain Scale 1 to 5 Stop: 09/11/24 15:14 Hydrocodone Bitart/Acetaminophen (Hydrocodone/Apap 5-325mg 1 Each Tab) 2 each PO Q6HR PRN PRN Reason: Pain Scale 6 to 10 Stop: 09/11/24 15:14 Last Admin: 08/13/24 09:38 Dose: 2 each Aspirin (Aspirin 81 Mg) 81 mg PO BID [facility] Stop: 09/11/24 20:59 Last Admin: 08/13/24 09:37 Dose: 81 mg Atorvastatin Calcium (Atorvastatin 40 Mg Tab) 40 mg PO HS [facility] Last Admin: 08/13/24 00:00 Dose: 40 mg Bisacodyl (Bisacodyl 10 Mg Supp) 10 mg RECTAL DAILY PRN PRN Reason: Constipation Stop: 09/11/24 15:14 Cholecalciferol (Cholecalciferol 25 Mcg (1000 Iu) Tablet) [facility] Last Admin: 08/13/24 09:38 Dose: 25 mcg Ropivacaine 1,100 mg/ Sodium Chloride 330 ml/ Bandage/Support Products 1 each 0 mg MISCELLANE Q2H PRN PRN Reason: Breakthrough Pain Stop: 09/11/24 16:48 Cyanocobalamin (Cyanocobalamin 500 Mcg Tab) 1,000 mcg PO QAM [facility] Last Admin: 08/13/24 09:38 Dose: 1,000 mcg Fentanyl Citrate (Fentanyl (Pf) 50 Mcg/Ml 2 Ml Amp) 50 mcg IVP ONCE PRN PRN Reason: Severe Pain (Scale 7 to 10) Stop: 09/11/24 12:00 Last Admin: 08/12/24 12:02 Dose: 50 mcg Ferrous Sulfate (Ferrous Sulfate 325 Mg Tab) 325 mg PO W/LUNCH [facility] Last Admin: 08/13/24 13:28 Dose: 325 mg Hydromorphone HCl (Hydromorphone 0.5 Mg/0.5 Ml Syringe) 0.125 mg IVP Q3HR PRN PRN Reason: Pain Scale 1 to 3 Stop: 09/11/24 15:14 Hydromorphone HCl (Hydromorphone 0.5 Mg/0.5 Ml Syringe) 0.5 mg IVP Q3HR PRN PRN Reason: Pain Scale 7 to 10 Stop: 09/11/24 15:14 Last Admin: 08/13/24 13:27 Dose: 0.5 mg Hydromorphone HCl (Hydromorphone 0.5 Mg/0.5 Ml Syringe) 0.25 mg IVP Q3HR PRN PRN Reason: Pain Scale 4 to 6 Stop: 09/11/24 15:14 Lactated Ringer's (Lactated Ringers) 1,000 mls @ 20 mls/hr IV .Q24H [facility] Stop: 09/11/24 10:18 Last Admin: 08/13/24 12:32 Dose: Not Given Lidocaine HCl (Lidocaine 1% (10mg/Ml) For Iv Start) 0.1 ml INTRADERMA PER PROTOCOL PRN PRN Reason: IV Start Stop: 09/11/24 10:18 Magnesium Hydroxide (Magnesium Hydroxide 2,400 Mg/30 Ml Cup) 2,400 mg PO DAILY PRN PRN Reason: Constipation Stop: 09/11/24 15:14 Meloxicam (Meloxicam 7.5 Mg Tab) 7.5 mg PO DAILY [facility] Stop: 09/12/24 08:59 Last Admin: 08/13/24 09:37 Dose: 7.5 mg Naloxone HCl (Naloxone 0.4 Mg/Ml 1 Ml Vial) 0.2 mg IV Q2M PRN PRN Reason: Opioid Reversal Stop: 09/11/24 15:14 Ondansetron HCl (Ondansetron 4 Mg/2 Ml Vial) 4 mg IVP Q8HR PRN PRN Reason: Nausea And Vomiting Stop: 09/11/24 15:14 Oxybutynin Chloride (Oxybutynin Chloride 5 Mg Tab) 10 mg PO QAM [facility] Last Admin: 08/13/24 09:37 Dose: 10 mg Pantoprazole Sodium (Pantoprazole 40 Mg Tablet) 40 mg PO AC-BRKFST [facility] Last Admin: 08/13/24 06:52 Dose: 40 mg Senna/Docusate Sodium (Sennosides-Docusate Sodium 1 Each Tab) 2 each PO HS [facility] Stop: 09/11/24 20:59 Last Admin: 08/13/24 00:00 Dose: 2 each Sertraline HCl (Sertraline 100 Mg Tab) [facility] Last Admin: 08/13/24 09:37 Dose: 100 mg Sodium Biphosphate/Sodium Phosphate (Na Phos,M-B/Na Phos,Di-Ba 133 Ml Enema) 133 ml RECTAL DAILY PRN PRN Reason: Constipation Stop: 09/11/24 15:14 Temazepam (Temazepam 15 Mg Cap) 15 mg PO HS PRN PRN Reason: Insomnia Stop: 09/11/24 15:14 Triamterene/Hydrochlorothiazide (Triamterene-Hctz 37.5-25mg 1 Each Cap) 1 each PO QAM [facility] Last Admin: 08/13/24 09:38 Dose: 1 each Social history: Lives alone. No smoking. Patient is adopted. Physical examination: VITAL SIGNS: 98.6, 95, 16, 127 x 69, 90% room air GENERAL: BMI 35.3, reclining chair, comfortable EYES: Pupils equal. Conjunctiva laura l. HEENT: External appearance of nose and ears normal, oral cavity grossly normal. NECK: JVD not raised; masses not palpable. HEART: First and second heart sounds are normal; no edema. LUNGS: Respiratory rate normal; clear to auscultation. ABDOMEN: Soft, nontender, liver spleen not palpable, no masses palpable. PSYCH: Alert and oriented x3; mood and affect laura l. MUSCULOSKELETAL:No Clubbing/cyanosis;muscles-grossly intact. Delvis wrap with dressing over the right knee INVESTIGATIONS, reviewed in the clinical context: August 13: White count 12.9 hemoglobin 11.2 platelets 223 August 06: White count 7.4 hemoglobin 14.4 platelets 288 potassium 4.2 BUN 18.6 creatinine 0.7 Assessment plan: -Right total knee arthroplasty Aspirin for DVT prophylaxis -Acute postprocedure blood loss anemia expected from surgery Add ferrous sulfate -Chronic urine incontinence Ditropan -Hyperlipidemia Simvastatin 80 mg nightly -Depression anxiety Zoloft 100 mg a day -Primary osteoarthritis Pain medication -History of lung cancer in 2018 treated with chemotherapy and lung resection -Obesity BMI 35.3 Weight loss measures Discussed. Add ferrous sulfate. Thank you Dr. Goodman Past Medical History Past Medical History: Cancer, Deep Vein Thrombosis (DVT), Hyperlipidemia, Hypertension, Pulmonary Embolus (PE) Additional Past Medical History / Comment(s): Hx right lung cancer 2018 and endometrial cancer 2011 Hx DVT left leg that turned into PE at age 23. Borderline Diabetes. Chronic back pain. History of Any Multi-Drug Resistant Organisms: None Reported Past Surgical History: Cholecystectomy, Hysterectomy, Orthopedic Surgery Additional Past Surgical History / Comment(s): RIGHT KNEE SURGERY, LEFT KNEE SURGERY-NO KNEE CAP, COLONOSCOPY, LUNG SURGERY - 4/5TH OF RIGHT LOWER LUNG REMOVED, PAIN CLINIC PROCEDURE, bilateral cataracts removed with lens implants, bone marrow biopsy, christina in left leg, bilateral carpal tunnel. Past Anesthesia/Blood Transfusion Reactions: No Reported Reaction Additional Past Anesthesia/Blood Transfusion Reaction / Comm: Adopted, family hx unknown. Past Psychological History: Anxiety, Depression Smoking Status: Never smoker Past Alcohol Use History: Occasional Past Drug Use History: None Reported
[2024-08-14 02:48] VITALS: RESP 18
--- NOTE | 2024-08-14 08:45 | P.PN ---
Subjective Progress Note Date: 08/14/24 Principal diagnosis: Status post right total knee arthroplasty This is a 69 year-old female post right total knee arthroplasty. This is post- op day 2. The patient was evaluated at the bedside today. The patient denies nausea, vomiting, abdominal pain, shortness of breath, and chest pain this morning. She states her pain is controlled at this time. The patient states her right leg buckled while getting up with therapy yesterday and she almost fell. PT is recommending skilled rehab. We are awaiting auth for that. Objective - Vital Signs Vital signs: Vital Signs Temp 99.0 F 08/14/24 01:25 Pulse 76 08/14/24 01:25 Resp 18 08/14/24 01:25 BP 143/69 08/14/24 01:25 Pulse Ox 92 L 08/14/24 01:25 FiO2 Intake & Output 08/13/24 08/14/24 08/14/24 18:59 06:59 18:59 Other: Voiding Method Bedpan # Voids 2 1 - Exam The patient does not appear in acute distress. Alert and orientated x3. Dressing is clean dry and intact. Incision appears fine with no erythema or active drainage. Calf is soft and nontender. Good foot and ankle motion without difficulty. Sensation and circulatory status is intact. - Labs CBC & Chem 7: 08/13/24 02:28 Assessment and Plan (1) Primary osteoarthritis of right knee Current Visit: Yes Status: Acute Code(s): M17.11 - UNILATERAL PRIMARY OS TEOARTHRITIS, RIGHT KNEE SNOMED Code(s): 583739095022045 (2) Status post total right knee replacement using cement Current Visit: Yes Status: Acute Code(s): Z96.651 - PRESENCE OF RIGHT ARTIFICIAL KNEE JOINT SNOMED Code(s): 6311790425513 Plan: 1. Continue pain control, wean off Dilaudid. 2. Anticoagulation with Aspirin 3. Continue physical therapy and ambulation 4. Anticipate discharge to skilled rehab in the next day or so.
--- NOTE | 2024-08-14 11:27 | P.DS ---
Providers Date of admission: 08/13/24 10:55 Expected date of discharge: 08/14/24 Attending physician: Gavino Goodman Consults: 08/12/24 15:18 Consult Physician Routine Consulting Provider: Abel Genao Consult Reason/Comments: Medical management Do you want consulting provider notified?: Yes Primary care physician: Camron Byrne - Discharge Diagnosis(es) (1) Primary osteoarthritis of right knee Current Visit: Yes Status: Acute (2) Status post total right knee replacement using cement Current Visit: Yes Status: Acute Hospital Course: This is a 69 year-old female last seen in our office with complaints of right knee pain. The patient has a known history of degenerative arthritis of the right knee and presented to discuss options. After discussion and consideration the patient elected to proceed with a right total knee arthroplasty. The patient was seen preoperatively by her primary care physician and cleared for surgery. The patient was admitted to [facility] on 08/12/2024 and underwent a right total knee arthroplasty by Dr. Goodman. The procedure was performed without complications or sequelae. The patient was seen and evaluated at bedside today. The patient's pain is well-controlled. The patient has no new complaints today denies any fevers, chills, nausea, vomiting, or shortness of breath. Vital signs are stable. The dressing is clean, dry and intact. Incision looks fine with no erythema or active drainage. Calf is soft and nontender. The patient has full ankle motion without difficulty. The patient's right lower extremity is neurovascularly intact. Her right leg is weak and buckling when ambulating and she will need skilled rehab before she returns home. The patient is orthopedically stable for discharge to skilled rehab today in good condition. Pertinent Studies: Laboratory Tests 08/12/24 08/13/24 11:40 02:28 WBC 12.92 H RBC 3.71 L Hgb 11.2 L Hct 34.1 L POC Glucose (mg/dL) 150 H Patient Condition at Discharge: Stable Plan - Discharge Summary Discharge Rx Participant: Yes New Discharge Prescriptions: New Aspirin [Adult Low Dose Aspirin EC] 81 mg PO BID #1 tab Atorvastatin [Lipitor] 40 mg PO HS #30 tab Meloxicam 7.5 mg PO DAILY #30 tab Sennosides-Docusate Sodium [Senokot-S] 1 tab PO BID #60 tablet Ondansetron Odt [Zofran Odt] 4 mg PO Q8HR PRN #14 tab PRN Reason: Nausea Ferrous Sulfate [Iron (65 MG Elemental)] 325 mg PO W/LUNCH tab HYDROcodone/APAP 7.5-325MG [[place] 7.5-325] 1 tab PO Q4H PRN #32 tab PRN Reason: Pain Continue Cholecalciferol [Vitamin D3 (25 Mcg = 1000 Iu)] 1,000 unit PO QAM Sertraline [Zoloft] 100 mg PO QAM Triamterene/Hydrochlorothiazid [Triamterene-Hctz 37.5-25 mg Tb] 1 each PO QAM [place]-3 Fatty Acids/Fish Oil [Fish Oil 1,000 mg Softgel] 1 each PO HS oxyBUTYnin chloride [Ditropan] 10 mg PO QAM Cyanocobalamin (Vitamin B-12) [Vitamin B-12] 1,000 mcg PO QAM Omeprazole [PriLOSEC] 20 mg PO AC-BRKFST #90 cap Discontinued Simvastatin 80 mg PO HS Etodolac [Lodine] 500 mg PO BID No Action Cinnamon Bark [Cinnamon] 1,000 mg PO BID Cranberry Fruit Concentrate [Azo Cranberry] 250 mg PO QAM PRN PRN Reason: urinary health Discharge Medication List Cholecalciferol [Vitamin D3 (25 Mcg = 1000 Iu)] 1,000 unit PO QAM 04/06/17 [History] Cinnamon Bark [Cinnamon] 1,000 mg PO BID 04/06/17 [History] Sertraline [Zoloft] 100 mg PO QAM 04/06/17 [History] Triamterene/Hydrochlorothiazid [Triamterene-Hctz 37.5-25 mg Tb] 1 each PO QAM 04/06/17 [History] [place]-3 Fatty Acids/Fish Oil [Fish Oil 1,000 mg Softgel] 1 each PO HS 05/20/21 [History] Cyanocobalamin (Vitamin B-12) [Vitamin B-12] 1,000 mcg PO QAM 02/26/24 [History] oxyBUTYnin chloride [Ditropan] 10 mg PO QAM 02/26/24 [History] Omeprazole [PriLOSEC] 20 mg PO AC-BRKFST #90 cap 02/27/24 [Rx] Cranberry Fruit Concentrate [Azo Cranberry] 250 mg PO QAM PRN 08/02/24 [History] Aspirin [Adult Low Dose Aspirin EC] 81 mg PO BID #1 tab 08/12/24 [Rx] Meloxicam 7.5 mg PO DAILY #30 tab 08/12/24 [Rx] Ondansetron Odt [Zofran Odt] 4 mg PO Q8HR PRN #14 tab 08/12/24 [Rx] Sennosides-Docusate Sodium [Senokot-S] 1 tab PO BID #60 tablet 08/12/24 [Rx] Atorvastatin [Lipitor] 40 mg PO HS #30 tab 08/14/24 [Rx] Ferrous Sulfate [Iron (65 MG Elemental)] 325 mg PO W/LUNCH tab 08/14/24 [Rx] HYDROcodone/APAP 7.5-325MG [[place] 7.5-325] 1 tab PO Q4H PRN #32 tab 08/14/24 [Rx] Follow up Appointment(s)/Referral(s): Mckenna Reynolds, DIANN [PHYSICIAN [employer]ETING [employer] SPECIALIST] - 08/22/24 10:45 am Camron Byrne DO [Primary Care Provider] - 1 Week Activity/Diet/Wound Care/Special Instructions: May bear weight as tolerated with walker. Remove Optifoam dressing 7 days postop. Keep stocking and Delvis wrap intact until this week. May shower after stocking and Delvis wrap removed. Discharge Disposition: TRANSFER TO SNF/ECF
[2024-08-14] MEDS ORDERED: HYDROcodone/APAP 7.5-325MG 1 EACH TAB PO PRN (11:31)
[2024-08-14] MEDS: HYDROcodone/APAP 7.5-325MG 1 EACH TAB PO PRN (12:30)
[2024-08-14 12:55] VITALS: BP 145/66; PULSE 86; TEMP 98.5
--- NOTE | 2024-08-14 22:39 | P.PN ---
Progress Note - Text Progress Note Date: 08/14/24 - Chief Complaint Right knee surgery - History of Present Illness Pleasant 69-year-old patient who follows with Dr. Byrne. Chronic stable medical condition include hypertension, hyperlipidemia, osteoarthritis, GERD, urine incontinence. Back in 2018 patient had chemotherapy pill given for few months followed by right lower lobe resection. Gets annual CT scan. Also takes medication anxiety depression. Patient has undergone right total knee arthroplasty. Postprocedure pain is present. No nausea vomiting. Did tolerate a diet. Prior to surgery was cleared by cardiology. August 13: Having pain at operative site. Did tolerate a diet. No nausea vomiting. Drop in hemoglobin. Ferrous sulfate added. Discussed. Activity with PT OT. August 14: Tolerating diet. Some pain present. No nausea vomiting. Patient going to [facility] for rehab. Questions answered. Social history: Lives alone. No smoking. Patient is adopted. Physical examination: VITAL SIGNS: 98.5, 86, 18, 145 x 66, 91% room air GENERAL: BMI 35.3, reclining chair, comfortable EYES: Pupils equal. Conjunctiva laura l. HEENT: External appearance of nose and ears normal, oral cavity grossly normal. NECK: JVD not raised; masses not palpable. HEART: First and second heart sounds are normal; no edema. LUNGS: Respiratory rate normal; clear to auscultation. ABDOMEN: Soft, nontender, liver spleen not palpable, no masses palpable. PSYCH: Alert and oriented x3; mood and affect laura l. MUSCULOSKELETAL:No Clubbing/cyanosis;muscles-grossly intact. Delvis wrap with dressing over the right knee INVESTIGATIONS, reviewed in the clinical context: August 13: White count 12.9 hemoglobin 11.2 platelets 223 August 06: White count 7.4 hemoglobin 14.4 platelets 288 potassium 4.2 BUN 18.6 creatinine 0.7 Assessment plan: -Right total knee arthroplasty Aspirin for DVT prophylaxis -Acute postprocedure blood loss anemia expected from surgery Added ferrous sulfate -Chronic urine incontinence Ditropan -Hyperlipidemia Simvastatin 80 mg nightly -Depression anxiety Zoloft 100 mg a day -Primary osteoarthritis Pain medication -History of lung cancer in 2018 treated with chemotherapy and lung resection -Obesity BMI 35.3 Weight loss measures Disposition: [facility] for rehab Thank you Dr. Goodman Past Medical History Past Medical History: Cancer, Deep Vein Thrombosis (DVT), Hyperlipidemia, Hypertension, Pulmonary Embolus (PE) Additional Past Medical History / Comment(s): Hx right lung cancer 2018 and endometrial cancer 2012 Hx DVT left leg that turned into PE at age 23. Borderline Diabetes. Chronic back pain. History of Any Multi-Drug Resistant Organisms: None Reported Past Surgical History: Cholecystectomy, Hysterectomy, Orthopedic Surgery Additional Past Surgical History / Comment(s): RIGHT KNEE SURGERY, LEFT KNEE SURGERY-NO KNEE CAP, COLONOSCOPY, LUNG SURGERY - OF RIGHT LOWER LUNG REMOVED, PAIN CLINIC PROCEDURE, bilateral cataracts removed with lens implants, bone marrow biopsy, christina in left leg, bilateral carpal tunnel. Past Anesthesia/Blood Transfusion Reactions: No Reported Reaction Additional Past Anesthesia/Blood Transfusion Reaction / Comm: Adopted, family hx unknown. Past Psychological History: Anxiety, Depression Smoking Status: Never smoker Past Alcohol Use History: Occasional Past Drug Use History: None Reported
== END 2024-08-14 14:22 ==
LOC: OR 10:44 → 4SSUR 15:00 → OR 08-13 10:55
PROVIDERS: ADMIT Orthopaedic Surgery; ATTEND Orthopaedic Surgery
DX: M17.11 Unilateral primary osteoarthritis, right knee (principal); M81.0 Age-related osteoporosis without current pathological fracture; M21.169 Varus deformity, not elsewhere classified, unspecified knee; I10 Essential (primary) hypertension; K21.9 Gastro-esophageal reflux disease without esophagitis; R32 Unspecified urinary incontinence; E78.5 Hyperlipidemia, unspecified; F32.A Depression, unspecified; F41.9 Anxiety disorder, unspecified; R71.0 Precipitous drop in hematocrit; E66.9 Obesity, unspecified; Z68.35 Body mass index [BMI] 35.0-35.9, adult; R73.03 Prediabetes; G89.29 Other chronic pain; M54.9 Dorsalgia, unspecified; Z96.653 Presence of artificial knee joint, bilateral; Z92.21 Personal history of antineoplastic chemotherapy; Z85.118 Personal history of other malignant neoplasm of bronchus and lung; Z86.711 Personal history of pulmonary embolism; Z86.718 Personal history of other venous thrombosis and embolism; Z85.42 Personal history of malignant neoplasm of other parts of uterus
CPT/HCPCS: 27447; 97530; 97161; 97166; 64999; 64448; 85025; 73560; G0378 ×2; C1713; C1776; C1751; J2250; J1100; J0690 ×3; J2405; J3010; J2795; J2704; J1170; J1171 ×2; J2371

== ENCOUNTER → 2024-09-13 | Outpatient (CLI) | payer MEDICARE ==
[2024-09-13 15:03] LABS: Basophils # (A) 0.07 X 10*3/uL (0.00-0.10); Basophils % (A) 1.1 %; Eosinophils # (A) 0.18 X 10*3/uL (0.04-0.35); Eosinophils % (A) 2.8 %; HCT 37.6 % (37.2-46.3); HGB 12.3 g/dL (12.0-15.0); Lymphocytes % (A) 32.1 %; MCHC 32.7 g/dL (32.0-37.0); MCV 91.7 FL (80.0-97.0); Mean Platelet Volume 11.1 FL (9.5-12.2); Monocytes % (A) 7.6 %; NRBC Per 100 WBC 0 X 10*3/uL (0.00-0.01); Neutrophils # (A) 3.65 X 10*3/uL (1.80-7.70); Neutrophils % (A) 55.8 %; Platelet Count 232 X 10*3/uL (140-440); RDW 12.7 % (11.5-14.5); WBC 6.54 X 10*3/uL (4.50-10.00)
[2024-09-13 16:35] LABS: ALT 19 U/L (8-44); AST 23 U/L (13-35); Blood Urea Nitrogen 14.7 mg/dL (9.0-27.0); Calcium 10.4 mg/dL (8.7-10.3); Carbon Dioxide 25.5 mmol/L (21.6-31.8); Chloride 106 mmol/L (96-109); Chol/HDL Ratio 2.91 Ratio; Glucose 130 mg/dL (70-110); Potassium 4.2 mmol/L (3.5-5.5); Sodium 144 mmol/L (135-145)
== END | disposition home or self-care (01) ==
LOC: LABWHC1 11:08
PROVIDERS: ATTEND Family Medicine
DX: I10 Essential (primary) hypertension (principal); E11.9 Type 2 diabetes mellitus without complications; E55.9 Vitamin D deficiency, unspecified; E78.5 Hyperlipidemia, unspecified
CPT/HCPCS: 36415; 80048; 80061; 82306; 83036; 84450; 84460; 85025

== ENCOUNTER → 2024-09-26 | Outpatient (CLI) | payer MEDICARE ==
[2024-09-26 17:20] LABS: Color,Urine Colorless
[2024-09-26 17:21] LABS: Appearance,Urine Clear (Clear); Glucose,Urine (UA) Negative (Negative); Ketones,Urine Negative (Negative); Protein,Urine Negative (Negative); Specific Gravity,Urine 1.017 (1.001-1.035)
[2024-09-26 17:22] LABS: Bilirubin,Urine 3+ (Negative); Blood,Urine Negative (Negative); Leukocyte Esterase,Urine Moderate (Negative); Nitrite,Urine Negative (Negative); Urobilinogen,Urine <2.0 mg/dL (<2.0)
[2024-09-26 17:24] LABS: Bacteria,Urine Rare /hpf; RBC,Urine 1 /hpf (0-5); Squamous Epithelial Cell,Urine 2 /hpf (0-4); WBC,Urine 1 /hpf (0-5)
[2024-09-27 02:17] LABS: Basophils # (A) 0.07 X 10*3/uL (0.00-0.10); Basophils % (A) 0.9 %; Eosinophils # (A) 0.14 X 10*3/uL (0.04-0.35); Eosinophils % (A) 1.8 %; HGB 12.7 g/dL (12.0-15.0); Lymphocytes # (A) 2.16 X 10*3/uL (0.90-5.00); Lymphocytes % (A) 27.3 %; MCH 29.6 pg (27.0-32.0); MCHC 31.8 g/dL (32.0-37.0); MCV 93.2 FL (80.0-97.0); Mean Platelet Volume 10.9 FL (9.5-12.2); Monocytes # (A) 0.57 X 10*3/uL (0.20-1.00); Monocytes % (A) 7.2 %; NRBC Per 100 WBC 0 X 10*3/uL (0.00-0.01); Neutrophils # (A) 4.94 X 10*3/uL (1.80-7.70); Neutrophils % (A) 62.3 %; Platelet Count 302 X 10*3/uL (140-440); RBC 4.29 X 10*6/uL (4.10-5.20); RDW 12.5 % (11.5-14.5); WBC 7.92 X 10*3/uL (4.50-10.00)
[2024-09-27 02:47] LABS: ALT 23 U/L (8-44); AST 22 U/L (13-35); Albumin 4.4 g/dL (3.8-4.9); Albumin/Globulin Ratio 1.83 Ratio (1.60-3.17); Alkaline Phosphatase 112 U/L (41-126); BUN/Creat Ratio 20.44 Ratio (12.00-20.00); Blood Urea Nitrogen 18.4 mg/dL (9.0-27.0); Calcium 10.4 mg/dL (8.7-10.3); Carbon Dioxide 25.4 mmol/L (21.6-31.8); Chloride 105 mmol/L (96-109); Globulin 2.4 g/dL (1.6-3.3); Glucose 148 mg/dL (70-110); Potassium 4.2 mmol/L (3.5-5.5); Sodium 141 mmol/L (135-145); Total Bilirubin 0.5 mg/dL (0.3-1.2); Total Protein 6.8 g/dL (6.2-8.2)
== END | disposition home or self-care (01) ==
LOC: LABWHC1 15:56
PROVIDERS: ATTEND Physician Assistant
DX: R55 Syncope and collapse (principal)
CPT/HCPCS: 36415; 80053; 81001; 85025

== ENCOUNTER → 2024-09-30 | Outpatient (CLI) | payer MEDICARE ==
[2024-09-30 20:06] LABS: ALT 24 U/L (8-44); AST 24 U/L (13-35); Albumin 4.7 g/dL (3.8-4.9); Albumin/Globulin Ratio 1.74 Ratio (1.60-3.17); Alkaline Phosphatase 117 U/L (41-126); BUN/Creat Ratio 20.33 Ratio (12.00-20.00); Blood Urea Nitrogen 18.3 mg/dL (9.0-27.0); Calcium 10.7 mg/dL (8.7-10.3); Carbon Dioxide 25.2 mmol/L (21.6-31.8); Chloride 102 mmol/L (96-109); Globulin 2.7 g/dL (1.6-3.3); Glucose 134 mg/dL (70-110); Potassium 4.6 mmol/L (3.5-5.5); Sodium 140 mmol/L (135-145); Total Bilirubin 0.5 mg/dL (0.3-1.2); Total Protein 7.4 g/dL (6.2-8.2)
--- NOTE | 2024-10-02 08:45 | MM ---
Reason for Exam: Screening (asymptomatic). Last screening mammogram was performed 12 month(s) ago. Patient History: Menarche at age 12. First Full-Term at age 24. Postmenopausal. Risk Values: Palmira 5 year model risk: 1.7%. NCI Lifetime model risk: 5.5%. Prior Study Comparison: 09/08/2021 Left MG work up mamm w CAD LT - 2, [facility]. 09/19/2022 Bilateral MG 3D screening mammo w/cad, [facility]. 09/28/2023 Bilateral MG 3D screening mammo w/cad, [facility]. Tissue Density: There are scattered areas of fibroglandular density. Findings: Analyzed By CAD. Right breast: There is no suspicious group of microcalcifications or new suspicious mass. Left breast: There is no suspicious group of microcalcifications or new suspicious mass. Overall Assessment: Negative, BI-RAD 1 Management: Screening Mammogram of both breasts in [address] [facility] will attempt to contact patient to return for supplemental views and ultrasound if indicated. Patient should continue monthly self-breast exams. A clinical breast exam by your physician is recommended on an annual basis. This exam should not preclude additional follow-up of suspicious palpable abnormalities. Note on Palmira scores and lifetime risk: 1. A Palmira score greater than 3% is considered moderate risk. If this is the case, consider specialist referral to assess eligibility for a risk reducing agent. 2. If overall lifetime risk for the development of breast cancer is 20% or higher, the patient may qualify for future screening with alternating mammogram and breast MRI. [facility], , 10/02/2024 8:43 AM. Electronically signed and approved by: Mejia Guzmán DO
== END | disposition home or self-care (01) ==
LOC: RADMAMWWP 14:27
PROVIDERS: ATTEND Family Medicine
DX: Z12.31 Encounter for screening mammogram for malignant neoplasm of breast (principal); E78.00 Pure hypercholesterolemia, unspecified; Z78.0 Asymptomatic menopausal state; R92.323 Mammographic fibroglandular density, bilateral breasts
CPT/HCPCS: 77063; 77067; 80053

== ENCOUNTER 2024-10-04 09:21 | Day surgery (SDC) | payer MEDICARE ==
[2024-10-04 09:59] VITALS: TEMP 97.8
[2024-10-04] MEDS: LACTATED RINGERS 1,000 ML IV SCH (10:08)
[2024-10-04] MEDS: IV FLUID CONTINUATION 1,000 ML IV ONE (10:09)
[2024-10-04 10:12] LABS: Glucose,Whole Blood 139 mg/dL (70-110)
[2024-10-04] MEDS ORDERED: LIDOCAINE 1% INJ 10MG/ML (20 ML MDV) ONE (10:20)
[2024-10-04] MEDS ORDERED: PROPOFOL 10 MG/ML 20 ML VIAL IV ONE (10:20)
--- NOTE | 2024-10-04 10:36 | P.PCN ---
Date of Procedure: 10/04/24 Procedure(s) Performed: BRIEF HISTORY: Patient is a 69-year-old pleasant white female scheduled for an elective colonoscopy as a part of screening for colon cancer. PROCEDURE PERFORMED: Colonoscopy. PREOPERATIVE DIAGNOSIS: Screening for colon cancer. IV sedation per Anesthesia. PROCEDURE: After informed consent was obtained, the patient, was brought into the endoscopy unit. IV sedation was administered by Anesthesia under continuous monitoring. Digital rectal examination was normal. Initially the Olympus CF-160 flexible video colonoscope was then inserted in the rectum, gradually advanced into the cecum without any difficulty. Careful examination was performed as the scope was gradually being withdrawn. Ileocecal valve and the appendiceal orifice were visualized and appeared normal. Prep was excellent. Mucosa of the cecum, ascending colon, transverse colon, descending colon, sigmoid colon, and rectum appeared normal. Retroflexion was performed in the rectum and no lesions were seen. The patient tolerated the procedure well. IMPRESSION: Normal-appearing colon from rectum to cecum with no evidence of colorectal neoplasia. RECOMMENDATIONS: Findings of this examination were discussed with the patient as well as her family. She was advised to have repeat screening colonoscopy in 10 years..
[2024-10-04 10:44] VITALS: RESP 16
[2024-10-04 11:03] VITALS: BP 124/64; PULSE 74
== END 2024-10-04 11:24 | disposition home or self-care (01) ==
LOC: ORWHC2ENDO 09:21
PROVIDERS: ATTEND Internal Medicine Gastroenterology
DX: Z12.11 Encounter for screening for malignant neoplasm of colon (principal); K21.9 Gastro-esophageal reflux disease without esophagitis; F41.9 Anxiety disorder, unspecified; F32.A Depression, unspecified; I10 Essential (primary) hypertension; E78.5 Hyperlipidemia, unspecified; E11.9 Type 2 diabetes mellitus without complications; Z85.118 Personal history of other malignant neoplasm of bronchus and lung; Z79.899 Other long term (current) drug therapy; Z98.890 Other specified postprocedural states; Z85.42 Personal history of malignant neoplasm of other parts of uterus
CPT/HCPCS: J2003; J2704; G0121; 45378

== ENCOUNTER → 2024-10-08 | Outpatient (CLI) | payer MEDICARE ==
[2024-10-08 16:51] LABS: Appearance,Urine Cloudy (Clear); Bilirubin,Urine Negative (Negative); Blood,Urine Negative (Negative); Color,Urine Yellow (Yellow); Ketones,Urine Negative (Negative); Nitrite,Urine Negative (Negative); PH, Urine 5.5
[2024-10-08 17:27] LABS: Bacteria,Urine Trace (None Seen); Calcium Oxalate Crystals,Urine Present (None Seen)
== END | disposition home or self-care (01) ==
LOC: LABWHC1 09:59
PROVIDERS: ATTEND Family Medicine
DX: E83.52 Hypercalcemia (principal); R82.71 Bacteriuria
CPT/HCPCS: 36415; 81001; 83970; 87086

== ENCOUNTER → 2024-10-16 | Outpatient (CLI) | payer MEDICARE ==
[2024-10-16 13:56] VITALS: BP 127/76; PULSE 97; RESP 19; TEMP 97.8
--- NOTE | 2024-10-16 15:06 | P.PAINPG ---
PQRS Measure Charge Sheet Comment: A 66 yr old female with a history of severe and chronic LBP x 3 mo secondary to radiculopathy, spondylosis with facet arthropathy without myelopathy presents today for evaluation s/p ASHLEY L5-S1 #1. Pt states she experienced 80 % pain relief x 3 mo s/p procedure. Pain level is provoked at 8 /10 in intensity, constant, predominantly axial, localized in the lumbar spine, burning in character without shooting pain. Pain is provoked by prolonged activity for periods > 30 min. Pain is alleviated with PT x 4 wks (lumbar) which she is currently in, massage therapy monthly for yrs w last visit 3 wks ago, physician guided home exercises and stretches daily since Feb 2023, chiropractic treatments 1-2 times monthly x 4 yrs which she is currently in, heat & ice, medications, topical, walking/stretching, repositioning and rest. Interventional pain procedures completed include ASHLEY L5-S1 x4, T6-T7 x1 Patient is currently on Ibu Patient denies any side effects of the medication(s), denies excessive drowsiness or sleepiness, denies suicidal ideation and reports that the current pain medication is helping to control the pain and improve activities of daily living. Patient denies any motor or sensory deficits. Patient denies any fever or night sweats, denies any change in the bowel movements or urination. Physical Examination: -Constitutional: Cooperative. Not in acute distress . - Neurologic: Cranial nerve II to XII intact. No focal neurological deficits. - Psychatric: Alert & oriented x 3. Matching mood & appropriate affect. Judgment and insight intact. - Musculoskeletal: Cervical spine: +L lateral epicondyle 1+ nonpitting edema, TTP w 3cm laceration Muscle bulk/ tone/ strength in the bilateral upper extremities normal Vertebral body tenderness to palpation over Spurling test positive Distraction test positive Facet loading test positive TTP Thoracic spine Muscle bulk / tone/ strength in the bilateral paraspinal muscles normal Vertebral body tender to palpation over Facet loading test positive TTP Lumbar spine: +R ankle w 2+nonpitting edema and diffuse TTP Motor bulk/ tone/ strength lower extremities , thigh and legs : 5/5 Deep tendon reflexes : Normal Knee Jerk. Normal Ankle Jerk . Vertebral body tenderness to palpation over L5 Abreu Test positive Lumbar Facet Loading Test positive Straight Leg Raise: positive at 30 degrees right side/ left side Gaenslen's Test positive Sacral spine : Severe tenderness over the Sacroiliac joint: right side / left side Range of motion: Flexion of the lumbar spine <60 degrees Range of motion: Extension of the lumbar spine <20 degrees Gaenslen's Test positive right side / left side Reed test: positive right side / left side Thigh Thrust Test positive right side / left side Sacral Thrust Test positive right side / left side Imaging: MRI non contrast of the lumbar spine from 04/18/24reviewed Assessment and plan: Chronic LBP secondary to radiculopathy, spondylosis with facet arthropathy without myelopathy, R elbow & L ankle contusion s/p fall Recommendation of ASHLEY L5-S1 #4. Risks, benefits of procedure discussed and pt verbalized understanding. Protocol for discontinuation/ continuation of medications kris procedure discussed. All questions answered. I have spent less than 30 minutes on patient care today. Dr Gomez was available by phone for the evaluation of this patient. The time was used to review the medical records including relevant urine studies and Prescription history (MAPs), review of the available imaging, evaluation and examination of the patient, coordination of care with the medical staff and if applicable referring physicians, as well as creation of the medical record PQRS Narrative: Smoking Status Never smoker Narcotic Agreement Date Signed 09/27/21 Hx Alcohol Use (MH) Yes: occ Home Medications: Ambulatory Orders Cholecalciferol [Vitamin D3 (25 Mcg = 1000 Iu)] 1,000 unit PO QAM 04/06/17 Cinnamon Bark [Cinnamon] 1,000 mg PO BID 04/06/17 Sertraline [Zoloft] 100 mg PO QAM 04/06/17 Triamterene/Hydrochlorothiazid [Triamterene-Hctz 37.5-25 mg Tb] 1 each PO QAM 04/06/17 [place]-3 Fatty Acids/Fish Oil [Fish Oil 1,000 mg Softgel] 1 each PO HS 05/20/21 Cyanocobalamin (Vitamin B-12) [Vitamin B-12] 1,000 mcg PO QAM 02/26/24 oxyBUTYnin chloride [Ditropan] 10 mg PO QAM 02/26/24 Etodolac [Lodine XR] 500 mg PO DAILY 10/03/24 Famotidine [Pepcid] 20 mg PO DAILY PRN 10/03/24 Omeprazole 20 mg PO DAILY 10/03/24 Simvastatin [Zocor] 80 mg PO HS 10/03/24 Controlled Substance Measures - Controlled Substance Measures Is patient prescribed a controlled substance at discharge?: No
== END ==
LOC: PNWHC3 13:06
PROVIDERS: ATTEND Specialist
DX: S50.01XA Contusion of right elbow, initial encounter (principal); S90.01XA Contusion of right ankle, initial encounter; M47.26 Other spondylosis with radiculopathy, lumbar region; W19.XXXA Unspecified fall, initial encounter
CPT/HCPCS: 99211

== ENCOUNTER → 2024-10-21 | Outpatient (CLI) | payer MEDICARE ==
[2024-10-21 14:24] LABS: Ionized Calcium 5.5 mg/dL (4.5-5.3)
[2024-10-21 19:28] LABS: Appearance,Urine Clear (Clear); Bilirubin,Urine Negative (Negative); Blood,Urine Negative (Negative); Color,Urine Yellow (Yellow); Ketones,Urine Negative (Negative); Nitrite,Urine Negative (Negative); Specific Gravity,Urine 1.019 (1.001-1.030)
[2024-10-21 19:33] LABS: Calcium 10.5 mg/dL (8.7-10.3)
[2024-10-21 19:56] LABS: Bacteria,Urine None Seen (None Seen)
== END | disposition home or self-care (01) ==
LOC: LABWHC1 13:49
PROVIDERS: ATTEND Family Medicine
DX: E83.52 Hypercalcemia (principal); R82.71 Bacteriuria
CPT/HCPCS: 36415; 81001; 82310; 82330

== ENCOUNTER 2024-10-24 08:08 | Day surgery (SDC) | payer MEDICARE ==
[~2024-10-24 08:08] MED LIST changes: +LACTATED RINGERS 1,000 ML IV SCH; -LIDOCAINE 1% (10MG/ML) FOR IV START INTRADERMA PRN; -ONDANSETRON 4 MG/2 ML VIAL IVP PRN; -TRANEXAMIC 1,000 MG/100ML-NACL 1,000 MG in SALINE 1 100ML.BAG IVPB PRN; -droPERidol 5 MG/2 ML VIAL IVP PRN
[2024-10-24 08:30] VITALS: TEMP 97.3
[2024-10-24 09:07] LABS: Glucose,Whole Blood 154 mg/dL (70-110)
[2024-10-24] MEDS ORDERED: methylPREDNISolone ACETATE 40 MG/ML 1 ML VIAL ONE (09:13)
[2024-10-24] MEDS ORDERED: IOPAMIDOL M200 10 ML VIAL ONE (09:13)
--- NOTE | 2024-10-24 09:19 | P.PCN ---
Date of Procedure: 10/24/24 Procedure(s) Performed: PREOPERATIVE DIAGNOSIS: 1- Lumbar Degenerative Disc Diseases 2-Lumbar spondylosis with Facet arthropathy without myelopathy. 3-lumbar radiculopathy POSTOPERATIVE DIAGNOSIS: 1-lumbar degenerative disc disease. 2-lumbar spondylosis with facet arthropathy without myelopathy 3-lumbar radiculopathy PROCEDURE 1. Lumbar epidural steroid injection under fluoroscopic guidance at the L5-S1 level. (Fluoroscopy imaging was available in radiology department) 2. Lumbar epidurogram. ANESTHESIA: Lidocaine 1% 3 and then only. EBL: Minimal PROCEDURE INDICATION: The patient with low back pain and radiculitis symptoms unresponsive to conservative treatment. Fluoroscopy was used to optimize visualization of the needle placement and to maximize safety. PROCEDURE DESCRIPTION / TECHNIQUE: The patient was seen and identified in the preoperative area. Risks, benefits, complications including but not limited to infections ,bleeding ,allergic reaction to the medications ,nerve damage and not complete pain releife , and alternatives were discussed with the patient. The patient agreed to proceed with the procedure and signed the consent, and vital signs were stable. Patient was taken to the OR and time out was completed. The patient was placed in the prone position on procedure table and a pillow was placed under the abdomen to reduce lumbar lordosis. The lumbosacral area was prepped and draped in the usual sterile fashion.ere closely monitored during the procedure. Vital signs was monitered during the entire procedure. Using anterior-posterior fluoroscopy, the L5-S1 interlaminar space was identified and the skin over this site was marked and then infiltrated with 1% lidocaine subcutaneously. Subsequently, a 20-gauge Tuohy epidural needle was inserted and advanced toward the epidural space using the ``Loss of resistance technique and guided by AP and lateral fluoroscopy. The correct needle position in the epidural space was verified with the injection of 2 mL of the water soluble contrast dye Isovue 200 contrast and observing an excellent epidurogram with the epidural spread of the dye, after negative aspiration for blood and CSF and in the absence of paresthesias. Again after negative aspiration, a 6 ml mixture containing 40 mg of Depo-medrol ( Preservetive Free ), and 2 ml of preservative free Normal Saline, and 2 ml of preservative free lidocaine 1% solution was injected and a washout of epidurogram was seen. Needle was with drawn intact, skin was cleansed, and bandages were applied. COMPLICATIONS: None DISPOSITION / PLANS: The patient was placed in a supine position and transferred to the recovery area in a stable condition for observation. There was no evidence of lower extremity motor or sensory deficit after the procedure. Patient was discharged from the recovery room after meeting discharge criteria. Home discharge instructions were given to the patient by the staff. The patient was reexamined prior to discharge. The patient will schedule a follow up in the clinic in 2-4 weeks.
[2024-10-24 09:24] VITALS: PULSE 76; RESP 16
[2024-10-24 09:38] VITALS: BP 134/81
--- NOTE | 2024-10-24 11:02 | FL ---
EXAMINATION TYPE: FL guided pain mgmt statistic DATE OF EXAM: 10/24/2024 9:25 AM COMPARISON: Pre Operative Images if available both CT/MRI or plain film CLINICAL INDICATION: Female, 69 years old with history of LESI; TECHNIQUE: FL guided pain mgmt statistic, multiple fluoroscopic images provided for procedure. Total fluoroscopy time: 3.2 seconds Total submitted images to PACS: 1 DAP: [id number] mGym2 Gycm2 uGym2 cGycm2 or equivalent. FINDINGS: Fluoroscopic images during injection for pain management demonstrate multilevel degeneration changes throughout the spine. No evidence for fracture. No acute process identified. IMPRESSION: 1. No evidence for intraoperative complication. 2. Please see the operative/procedural note for further details. [facility], , 10/24/2024 11:00 AM
== END 2024-10-24 09:42 | disposition home or self-care (01) ==
LOC: ORPAIN 08:08
PROVIDERS: ATTEND Specialist
DX: M51.16 Intervertebral disc disorders with radiculopathy, lumbar region (principal); M47.26 Other spondylosis with radiculopathy, lumbar region
CPT/HCPCS: 83970; 62323; Q9966; J1010

== ENCOUNTER 2024-11-01 18:04 | Emergency (ER) | payer MEDICARE ==
[2024-11-01 18:12] VITALS: TEMP 97.6
--- NOTE | 2024-11-01 18:34 | ED ---
Fall HPI - General Source: patient Mode of arrival: ambulatory - History of Present Illness MD Complaint: fall Fall From: standing Loss of Consciousness: unsure Prolonged Down Time?: no <Jerrell Braun - Last Filed: 11/01/24 18:36> - General Source: patient, RN notes reviewed <Joselin Silva - Last Filed: 11/01/24 21:08> - General Chief Complaint: Fall Stated Complaint: FALL/NEURO Time Seen by Provider: 11/01/24 18:20 - History of Present Illness Initial Comments: Quick note: This is a 69-year-old female with history of CVA, DM, PE, DVT and recent history of right TKR presenting with frequent falls for at least 2 weeks. Patient states her legs have been giving out despite use of walker, causing her to fall frequently with associated right femur/hip pain following recent right knee replacement. Patient describes pain as throbbing. States last fall occurred this afternoon at 1630. Patient mentions 1 episode of dizziness causing syncope during physical therapy 2 weeks ago. Patient states she would like to learn the reason for her frequent falls but denies significant injury from the falls. Denies striking head, headache, neck pain, and frequent dizziness, chest pain, dyspnea, radiating pain, diaphoresis. (Jerrell Braun) This is a 69-year-old female with a history of bilateral total knee replacements presenting to the emergency department for chief complaint of a fall. States that prior to arrival she was walking outside when she fell to her bottom. Patient denies syncopal event, hitting her head or loss of consciousness. She believes that her knee gave out. States that over the last 5 months she has been experiencing frequent falls. Patient follows with health communications specialist which she saw last week Monday where imaging was completed of her right knee after total knee replacement over the summer with no acute findings. She is currently enrolled in physical therapy (Joselin Silva) - Related Data Home Medications Medication Instructions Recorded Confirmed Cholecalciferol [Vitamin D3 (25 1,000 unit PO QAM 04/06/17 10/24/24 Mcg = 1000 Iu)] Sertraline [Zoloft] 100 mg PO QAM 04/06/17 10/24/24 Triamterene/Hydrochlorothiazid 1 each PO QAM 04/06/17 10/24/24 [Triamterene-Hctz 37.5-25 mg Tb] Camby-3 Fatty Acids/Fish Oil [Fish 1 each PO HS 05/20/21 10/24/24 Oil 1,000 mg Softgel] Cyanocobalamin (Vitamin B-12) 1,000 mcg PO QAM 02/26/24 10/24/24 [Vitamin B-12] oxyBUTYnin chloride [Ditropan] 10 mg PO QAM 02/26/24 10/24/24 Etodolac [Lodine XR] 500 mg PO DAILY 10/03/24 10/24/24 Famotidine [Pepcid] 20 mg PO DAILY PRN 10/03/24 10/24/24 Omeprazole 20 mg PO DAILY 10/03/24 10/24/24 Simvastatin [Zocor] 40 mg PO HS 10/03/24 10/24/24 Allergies Allergy/AdvReac Type Severity Reaction Status Date / Time No Known Allergies Allergy Verified 11/01/24 18:06 Review of Systems ROS Other: All systems not noted in ROS Statement are negative. <Jerrell Braun - Last Filed: 11/01/24 18:36> ROS Other: All systems not noted in ROS Statement are negative. <Joselin Silva - Last Filed: 11/01/24 21:08> ROS Statement: Those systems with pertinent positive or pertinent negative responses have been documented in the HPI. Past Medical History Past Medical History: Cancer, Diabetes Mellitus, Deep Vein Thrombosis (DVT), P ulmonary Embolus (PE) Additional Past Medical History / Comment(s): Hx right lung cancer 2018 and endometrial cancer 2012 Hx DVT left leg that turned into PE at age 23. Border line Diabetes. Chronic back pain. History of Any Multi-Drug Resistant Organisms: None Reported Past Surgical History: Cholecystectomy, Hysterectomy, Orthopedic Surgery Additional Past Surgical History / Comment(s): RIGHT KNEE SURGERY, LEFT KNEE SURGERY-NO KNEE CAP, COLONOSCOPY, LUNG SURGERY - 4/ OF RIGHT LOWER LUNG REMOV ED, PAIN CLINIC PROCEDURE, bilateral cataracts removed with lens implants, bone marrow biopsy, christina in left leg, bilateral carpal tunnel. Past Anesthesia/Blood Transfusion Reactions: No Reported Reaction Additional Past Anesthesia/Blood Transfusion Reaction / Comment(s): Adopted, family hx unknown. Past Psychological History: Anxiety, Depression Smoking Status: Never smoker Past Alcohol Use History: Rare Past Drug Use History: None Reported - Past Family History Mother History Unknown: Yes Family Medical History: Unable to Obtain Additional Family Medical History / Comment(s): PT ADOPTED-FAMILY HHX UNKNOWN <Jerrell Braun - Last Filed: 11/01/24 18:36> General Exam Limitations: no limitations <Jerrell Braun - Last Filed: 11/01/24 18:36> General appearance: alert, in no apparent distress Eye exam: Present: normal appearance, PERRL, EOMI. Absent: scleral icterus, conjunctival injection, periorbital swelling Neck exam: Present: normal inspection. Absent: tenderness, meningismus, lymphadenopathy Respiratory exam: Present: normal lung sounds bilaterally. Absent: respiratory distress, wheezes, rales, rhonchi, stridor Cardiovascular Exam: Present: regular rate, normal rhythm, normal heart sounds. Absent: systolic murmur, diastolic murmur, rubs, gallop, clicks GI/Abdominal exam: Present: soft, normal bowel sounds. Absent: distended, tenderness, guarding, rebound, rigid Right Hip exam: Present: full ROM, tenderness Upper Leg exam: Present: full ROM, tenderness. Absent: swelling Knee exam: Present: full ROM, tenderness, swelling Back exam: Present: normal inspection Neurological exam: Present: alert, oriented X3, CN II-XII intact <Joselin Silva - Last Filed: 11/01/24 21:08> - General Exam Comments Initial Comments: Visual Physical Exam Vital signs reviewed General: Well-appearing, nontoxic, no acute distress. Head: Normocephalic, atraumatic Eyes: PERRLA, EOMI ENT: Airway patent Chest: Nonlabored breathing Skin: No visual rash, normal skin tone Neuro: Alert and oriented 3 Musculoskeletal: No gross abnormalities (Jerrell Braun) Course Vital Signs 11/01/24 11/01/24 18:06 20:48 Temperature 97.6 F Pulse Rate 83 78 Respiratory 20 18 Rate Blood Pressure 151/66 136/78 O2 Sat by Pulse 98 97 Oximetry Medical Decision Making <Jerrell Braun - Last Filed: 11/01/24 18:36> - Lab Data Result diagrams: 11/01/24 19:00 11/01/24 19:00 <Joselin Silva - Last Filed: 11/01/24 21:08> - Medical Decision Making I completed the quick note portion of this chart signed HILARY Hull (Jerrell Braun) Was pt. sent in by a medical professional or institution (JOAQUIN Shah, INSTRUCTIONAL TECHNOLOGY TEACHER, urgent care, hospital, or [place] health care facility...) When possible be specific @ -No Did you speak to anyone other than the patient for history (EMS, parent, family, police, friend...)? What history was obtained from this source @ -No Did you review nursing and triage notes (agree or disagree)? Why? @ -I reviewed and agree with nursing and triage notes Were old charts reviewed (outside hosp., previous admission, EMS record, old EKG, old radiological studies, urgent care reports/EKG's, [place] health care facility records)? Report findings @ -No old charts were reviewed Differential Diagnosis (chest pain, altered mental status, abdominal pain women, abdominal pain men, vaginal bleeding, weakness, fever, dyspnea, syncope, headache, dizziness, GI bleed, back pain, seizure, CVA, palpatations, mental health, musculoskeletal)? @ -Differential Weakness: Hypoglycemia, shock, sepsis, hyponatremia, anemia, infection, NH, ETOH, adverse medicine reaction, overdose, stroke, this is not meant to be an all-inclusive list. EKG interpreted by me (3pts min.). @ -Completed at 1858 sinus rhythm with a ventricular rate of 72, ME interval 171, QRS 79, QTc 375 Compared EKG from previous on 08/06/2024 with no significant changes X-rays interpreted by me (1pt min.). @ -X-ray of the right hip and pelvis reveals no evidence for acute process with a moderate hip osteoarthrosis CT interpreted by me (1pt min.). @ -None done U/S interpreted by me (1pt. min.). @ -None done What testing was considered but not performed or refused? (CT, X-rays, U/S, labs)? Why? @ -None What meds were considered but not given or refused? Why? @ -None Did you discuss the management of the patient with other professionals (professionals i.e. JOAQUIN Shah, INSTRUCTIONAL TECHNOLOGY TEACHER, lab, RT, psych nurse, social media job titles, commanding officer homicide squad, teacher, morals squad police officer, watch case polisher)? Give summary @ -No Was smoking cessation discussed for >3mins.? @ -No Was critical care preformed (if so, how long)? @ -No Were there social determinants of health that impacted care today? How? (Homelessness, low income, unemployed, alcoholism, drug addiction, transportation, low edu. Level, literacy, decrease access to med. care, alf, rehab)? @ -No Was there de-escalation of care discussed even if they declined (Discuss DNR or withdrawal of care, Hospice)? DNR status @ -No What co-morbidities impacted this encounter? (DM, HTN, Smoking, COPD, CAD, Cancer, CVA, ARF, Chemo, Hep., AIDS, mental health diagnosis, sleep apnea, morbid obesity)? @ -None Was patient admitted / discharged? Hospital course, mention meds given and route, prescriptions, significant lab abnormalities, going to OR and other perti nent info. @ -discharged. 69-year-old female presenting for frequent falls. Patient was originally evaluated in the emergency department waiting room as a quick note for laboratory studies were ordered addition to imaging. On my evaluation of the patient she is resting comfortably no signs of acute distress. She is noted to have soft tissue swelling of the right knee with full range of motion. States that this swelling is common for her and was recently evaluated by health communications specialist 7 days ago where imaging was completed with no acute findings. Patient will undergo weakness workup due to frequent falls over the last 6 months. Discussion with patient possibility for admission and potential placement to rehabilitation center for weakness however patient has declined at this time. States that she follows with physical therapy outpatient and has a good relationship with her primary care provider feels comfortable following up outpatient for continued care. All questions have been answered at bedside intact return parameters have discussed with the patient she is verbalized u nderstanding. Discussed with Dr. Klein Undiagnosed new problem with uncertain prognosis? @ -No Drug Therapy requiring intensive monitoring for toxicity (Heparin, Nitro, Insulin, Cardizem)? @ -No Were any procedures done? @ -No Diagnosis/symptom? @ -weakness, right hip pain, right knee pain, frequent falls Acute, or Chronic, or Acute on Chronic? @ -acute Uncomplicated (without systemic symptoms) or Complicated (systemic symptoms)? @ -uncomplicated Side effects of treatment? @ -No Exacerbation, Progression, or Severe Exacerbation? @ -No Poses a threat to life or bodily function? How? (Chest pain, USA, NH, pneumonia, PE, COPD, DKA, ARF, appy, cholecystitis, CVA, Diverticulitis, Homicidal, S uicidal, threat to staff... and all critical care pts) @ -No (Joselin Silva) - Lab Data Lab Results 11/01/24 11/01/24 11/01/24 Range/Units 19:00 19:00 19:00 WBC 8.0 (3.8-10.6) k/uL RBC 4.59 (3.80-5.40) m/uL Hgb 13.3 (11.4-16.0) gm/dL Hct 40.4 (34.0-46.0) % MCV 88.1 (80.0-100.0) fL MCH 29.0 (25.0-35.0) pg MCHC 32.9 (31.0-37.0) g/dL RDW 12.8 (11.5-15.5) % Plt Count 245 (150-450) k/uL MPV 8.0 Neutrophils % 57 % Lymphocytes % 27 % Monocytes % 6 % Eosinophils % 6 % Basophils % 1 % Neutrophils # 4.6 (1.3-7.7) k/uL Lymphocytes # 2.2 (1.0-4.8) k/uL Monocytes # 0.5 (0-1.0) k/uL Eosinophils # 0.5 (0-0.7) k/uL Basophils # 0.1 (0-0.2) k/uL PT 10.4 (10.0-12.5) sec INR 0.9 (<1.2) APTT 21.0 L (22.0-30.0) sec Sodium 135 L (137-145) mmol/L Potassium 5.3 H (3.5-5.1) mmol/L Chloride 102 (98-107) mmol/L Carbon Dioxide 25 (22-30) mmol/L Anion Gap 8 mmol/L BUN 23 H (7-17) mg/dL Creatinine 0.57 (0.52-1.04) mg/dL Est GFR (CKD-EPI)AfAm >90 (>60 ml/min/1.73 sqM) Est GFR (CKD-EPI)NonAf >90 (>60 ml/min/1.73 sqM) Glucose 135 H (74-99) mg/dL Calcium 10.3 H (8.4-10.2) mg/dL Magnesium 1.8 (1.6-2.3) mg/dL Total Bilirubin 1.1 (0.2-1.3) mg/dL AST 35 (14-36) U/L ALT 24 (4-34) U/L Alkaline Phosphatase 80 (38-126) U/L Troponin I (0.000-0.034) ng/mL Total Protein 8.7 H (6.3-8.2) g/dL Albumin 5.0 (3.5-5.0) g/dL Urine Color Urine Appearance (Clear) Urine pH (5.0-8.0) Ur Specific [place] (1.001-1.035) Urine Protein (Negative) Urine Glucose (UA) (Negative) Urine Ketones (Negative) Urine Blood (Negative) Urine Nitrite (Negative) Urine Bilirubin (Negative) Urine Urobilinogen (<2.0) mg/dL Ur Leukocyte Esterase (Negative) Urine RBC (0-5) /hpf Urine WBC (0-5) /hpf Ur Squamous Epith Cells (0-4) /hpf Urine Mucus (None) /hpf 11/01/24 11/01/24 Range/Units 19:00 20:05 WBC (3.8-10.6) k/uL RBC (3.80-5.40) m/uL Hgb (11.4-16.0) gm/dL Hct (34.0-46.0) % MCV (80.0-100.0) fL MCH (25.0-35.0) pg MCHC (31.0-37.0) g/dL RDW (11.5-15.5) % Plt Count (150-450) k/uL MPV Neutrophils % % Lymphocytes % % Monocytes % % Eosinophils % % Basophils % % Neutrophils # (1.3-7.7) k/uL Lymphocytes # (1.0-4.8) k/uL Monocytes # (0-1.0) k/uL Eosinophils # (0-0.7) k/uL Basophils # (0-0.2) k/uL PT (10.0-12.5) sec INR (<1.2) APTT (22.0-30.0) sec Sodium (137-145) mmol/L Potassium (3.5-5.1) mmol/L Chloride (98-107) mmol/L Carbon Dioxide (22-30) mmol/L Anion Gap mmol/L BUN (7-17) mg/dL Creatinine (0.52-1.04) mg/dL Est GFR (CKD-EPI)AfAm (>60 ml/min/1.73 sqM) Est GFR (CKD-EPI)NonAf (>60 ml/min/1.73 sqM) Glucose (74-99) mg/dL Calcium (8.4-10.2) mg/dL Magnesium (1.6-2.3) mg/dL Total Bilirubin (0.2-1.3) mg/dL AST (14-36) U/L ALT (4-34) U/L Alkaline Phosphatase (38-126) U/L Troponin I <0.012 (0.000-0.034) ng/mL Total Protein (6.3-8.2) g/dL Albumin (3.5-5.0) g/dL Urine Color Light Yellow Urine Appearance Clear (Clear) Urine pH 5.5 (5.0-8.0) Ur Specific [place] 1.027 (1.001-1.035) Urine Protein Negative (Negative) Urine Glucose (UA) Negative (Negative) Urine Ketones Negative (Negative) Urine Blood Negative (Negative) Urine Nitrite Negative (Negative) Urine Bilirubin 3+ H (Negative) Urine Urobilinogen <2.0 (<2.0) mg/dL Ur Leukocyte Esterase Trace H (Negative) Urine RBC 1 (0-5) /hpf Urine WBC 1 (0-5) /hpf Ur Squamous Epith Cells 2 (0-4) /hpf Urine Mucus Rare H (None) /hpf Disposition <Jerrell Braun - Last Filed: 11/01/24 18:36> Is patient prescribed a controlled substance at d/c from ED?: No Time of Disposition: 20:35 <Joselin Silva - Last Filed: 11/01/24 21:08> Clinical Impression: Chronic knee pain, Fall Disposition: HOME SELF-CARE Condition: Good Instructions (If sedation given, give patient instructions): Fall Prevention for Older Adults (ED) Additional Instructions: Please return to the Emergency Department if symptoms worsen or any other concerns. Referrals: Camron Byrne DO [Primary Care Provider] - 1-2 days
[2024-11-01 19:18] LABS: Basophils # (A) 0.1 k/uL (0-0.2); Basophils % (A) 1 %; Eosinophils # (A) 0.5 k/uL (0-0.7); Eosinophils % (A) 6 %; HCT 40.4 % (34.0-46.0); HGB 13.3 gm/dL (11.4-16.0); Lymphocytes # (A) 2.2 k/uL (1.0-4.8); Lymphocytes % (A) 27 %; MCHC 32.9 g/dL (31.0-37.0); MCV 88.1 fL (80.0-100.0); Monocytes # (A) 0.5 k/uL (0-1.0); Monocytes % (A) 6 %; Neutrophils # (A) 4.6 k/uL (1.3-7.7); Neutrophils % (A) 57 %; Platelet Count 245 k/uL (150-450); RBC 4.59 m/uL (3.80-5.40); RDW 12.8 % (11.5-15.5)
[2024-11-01 19:34] LABS: ALT 24 U/L (4-34); African American GFR (CKD) >90 (>60 ml/min/1.73 sqM); Anion Gap 8 mmol/L; Blood Urea Nitrogen 23 mg/dL (7-17); Calcium 10.3 mg/dL (8.4-10.2); Carbon Dioxide 25 mmol/L (22-30); Chloride 102 mmol/L (98-107); Glucose 135 mg/dL (74-99); Non-African American GFR(CKD) >90 (>60 ml/min/1.73 sqM); Sodium 135 mmol/L (137-145)
[2024-11-01 19:37] LABS: INR 0.9 (<1.2); Prothrombin Time 10.4 sec (10.0-12.5)
--- NOTE | 2024-11-01 19:43 | XR ---
EXAMINATION TYPE: XR Hip RT and AP Pelvis DATE OF EXAM: 11/01/2024 7:27 PM COMPARISON: None CLINICAL INDICATION: Female, 69 years old with history of pain; PHH, pain TECHNIQUE: XR Hip RT and AP Pelvis; hip was examined in the frontal and lateral projections and a AP pelvis. FINDINGS: No evidence for acute process, joint dislocation or significant soft tissue swelling. Osteo phyte formation of the superior acetabulum of the hip. There is mild joint space narrowing. Left hip fixation screw appears intact. IMPRESSION: 1. No evidence for acute process. 2.. Moderate hip osteoarthrosis. [facility], , 11/01/2024 7:40 PM
[2024-11-01 19:56] LABS: AST 35 U/L (14-36); Alkaline Phosphatase 80 U/L (38-126); Potassium 5.3 mmol/L (3.5-5.1); Total Bilirubin 1.1 mg/dL (0.2-1.3); Total Protein 8.7 g/dL (6.3-8.2)
[2024-11-01 19:57] LABS: Magnesium 1.8 mg/dL (1.6-2.3)
[2024-11-01 20:19] LABS: Appearance,Urine Clear (Clear); Bilirubin,Urine 3+ (Negative); Blood,Urine Negative (Negative); Color,Urine Light Yellow; Glucose,Urine (UA) Negative (Negative); Ketones,Urine Negative (Negative); Leukocyte Esterase,Urine Trace (Negative); Mucus,Urine Rare /hpf; Nitrite,Urine Negative (Negative); PH, Urine 5.5 (5.0-8.0); Protein,Urine Negative (Negative); RBC,Urine 1 /hpf (0-5); Specific Gravity,Urine 1.027 (1.001-1.035); Squamous Epithelial Cell,Urine 2 /hpf (0-4); Urobilinogen,Urine <2.0 mg/dL (<2.0); WBC,Urine 1 /hpf (0-5)
[2024-11-01 20:49] VITALS: BP 136/78; PULSE 78; RESP 18
== END 2024-11-01 20:49 | disposition home or self-care (01) ==
LOC: EC 18:04
DX: G89.29 Other chronic pain (principal); M25.561 Pain in right knee; R53.1 Weakness; M25.551 Pain in right hip; W18.30XA Fall on same level, unspecified, initial encounter; Y93.01 Activity, walking, marching and hiking
CPT/HCPCS: 36415; 73502; 80053; 81001; 83735; 84484; 85025; 85610; 85730; 93005; 99284

== ENCOUNTER → 2025-02-17 | Outpatient (CLI) | payer MEDICARE ==
--- NOTE | 2025-02-19 14:36 | CT ---
"EXAMINATION TYPE: CT chest wo con DATE OF EXAM: 02/17/2025 3:44 PM COMPARISON: 02/09/2024 CLINICAL INDICATION: Female, 69 years old with history of C54.1 MALIGNANT NEOPLASM OF ENDOMETRIUM, hx of endometrial and lung Ca. TECHNIQUE: Axial images were obtained at 5 mm thick sections. Reconstructed images are reviewed on Libretto computer in the coronal plane. Contrast used: mL of , (none if empty) Oral contrast used: (none if empty) CT DLP: 654 mGycm, Automated exposure control for dose reduction was used. FINDINGS: Portion of the thyroid visualized is normal. There is a 1.2 cm irregular density in the superior anterior right lung, series 4 image 14. Finding i s suspicious for neoplasm. This has increased from comparison. PET/CT is recommended for additional e valuation. New pleural-based thickening is present posterior lateral right upper lung field on the example image series 4 image 23. This measures approximately 3.4 cm in length with a depth 1.1 cm. There is a stable 0.6 cm irregular density at the cardiophrenic angle mid right lung. Series 4 image 28. There is a stable 1.4 cm oval smooth bordered density along the major fissure margin near the superio r hilum. Series 4 image 25. No enlarged mediastinal or hilar adenopathy is evident. The ascending aorta diameter at the level of the main pulmonary artery is 3.5 cm. The main pulmonary artery diameter at the bifurcation is 0.3 c m. Mild coronary artery calcifications present. Limited CT sections are obtained through the upper abdomen. Abdomen is essentially unremarkable. Prio r cholecystectomy is noted. IMPRESSION: 1. Enlarging irregular 1.2 cm nodule right apex. New pleural-based thickening right lung. PET/CT andrew mmended for additional workup for neoplasm. A Yellow level critical message alert has been initiated for Morro Carreno MD via the [employer] 36 0 | Critical Results System on 02/19/2025 2:34 PM. This message alert has been sent to Morro Carreno MD via the preferences provided by the clinician for the receipt of Radiology Critical Findings. Mess age ID [id number]. [facility], , 02/19/2025 2:34 PM"
== END | disposition home or self-care (01) ==
LOC: RADCTMAIN 15:06
PROVIDERS: ATTEND Internal Medicine Hematology & Oncology
DX: C54.1 Malignant neoplasm of endometrium (principal); E78.5 Hyperlipidemia, unspecified; J98.4 Other disorders of lung; R91.1 Solitary pulmonary nodule; Z71.3 Dietary counseling and surveillance
CPT/HCPCS: 71250

== ENCOUNTER 2025-02-23 03:28 | Emergency (ER) | payer MEDICARE ==
[2025-02-23 03:36] VITALS: TEMP 97.8
--- NOTE | 2025-02-23 03:52 | ED ---
Chest Pain HPI - General Source: patient, RN notes reviewed, old records reviewed Mode of arrival: wheelchair Limitations: no limitations - History of Present Illness MD Complaint: chest pain, other (Pain right shoulder pain) -: hour(s) Onset: awoke with symptoms (Occurred before going to bed) Pain Location: substernal, right chest Pain Radiation: back Severity: moderate Severity scale (1-10): 7 Quality: aching, sharp Consistency: constant Improves With: nothing <Lane Gunn - Last Filed: 02/23/25 06:11> <Mejia Francois - Last Filed: 02/23/25 08:23> - General Chief Complaint: Fall Stated Complaint: chest/back pain Time Seen by Provider: 02/23/25 03:29 - History of Present Illness Initial Comments: This is a 69 female to the ER after a fall fall landing on her back back right shoulder denies hitting head. Patient has no headache or neck pain. Is complaining of back pain chest pain right shoulder pain severe. Patient is not on blood thinners but does have history of PE. Patient states she woke up this morning with pain, she had the fall 2 to 3 days ago now and the pain was initially bad same kind of pain that she has now but then it got better. Pain again awoke her from sleep last night before she went to bed prompting her to call her son to come to the hospital (Lane Gunn) - Related Data Home Medications Medication Instructions Recorded Confirmed Cholecalciferol [Vitamin D3 (25 1,000 unit PO QAM 04/06/17 10/24/24 Mcg = 1000 Iu)] Sertraline [Zoloft] 100 mg PO QAM 04/06/17 10/24/24 Triamterene/Hydrochlorothiazid 1 each PO QAM 04/06/17 10/24/24 [Triamterene-Hctz 37.5-25 mg Tb] [place]-3 Fatty Acids/Fish Oil [Fish 1 each PO HS 05/20/21 10/24/24 Oil 1,000 mg Softgel] Cyanocobalamin (Vitamin B-12) 1,000 mcg PO QAM 02/26/24 10/24/24 [Vitamin B-12] oxyBUTYnin chloride [Ditropan] 10 mg PO QAM 02/26/24 10/24/24 Etodolac [Lodine XR] 500 mg PO DAILY 10/03/24 10/24/24 Famotidine [Pepcid] 20 mg PO DAILY PRN 10/03/24 10/24/24 Omeprazole 20 mg PO DAILY 10/03/24 10/24/24 Simvastatin [Zocor] 40 mg PO HS 10/03/24 10/24/24 Previous Rx's Medication Instructions Recorded HYDROcodone/APAP 5-325MG [[place] 1 tab PO Q6HR PRN #12 tab 02/23/25 5-325] Allergies Allergy/AdvReac Type Severity Reaction Status Date / Time No Known Allergies Allergy Verified 02/23/25 03:30 Review of Systems ROS Other: All systems not noted in ROS Statement are negative. <Lane Gunn - Last Filed: 02/23/25 06:11> ROS Other: All systems not noted in ROS Statement are negative. <Mejia Francois - Last Filed: 02/23/25 08:23> ROS Statement: Those systems with pertinent positive or pertinent negative responses have been documented in the HPI. Past Medical History Past Medical History: Cancer, Diabetes Mellitus, Deep Vein Thrombosis (DVT), Pulmonary Embolus (PE) Additional Past Medical History / Comment(s): Hx right lung cancer 2018 and endometrial cancer 2012 Hx DVT left leg that turned into PE at age 23. Borderline Diabetes. Chronic back pain. History of Any Multi-Drug Resistant Organisms: None Reported Past Surgical History: Cholecystectomy, Hysterectomy, Orthopedic Surgery Additional Past Surgical History / Comment(s): RIGHT KNEE SURGERY, LEFT KNEE SURGERY-NO KNEE CAP, COLONOSCOPY, LUNG SURGERY - / OF RIGHT LOWER LUNG REMOVED, PAIN CLINIC PROCEDURE, bilateral cataracts removed with lens implants, bone marrow biopsy, christina in left leg, bilateral carpal tunnel. Past Anesthesia/Blood Transfusion Reactions: No Reported Reaction Additional Past Anesthesia/Blood Transfusion Reaction / Comment(s): Adopted, family hx unknown. Past Psychological History: Anxiety, Depression Smoking Status: Never smoker Past Alcohol Use History: None Reported Past Drug Use History: None Reported - Past Family History Mother History Unknown: Yes Family Medical History: Unable to Obtain Additional Family Medical History / Comment(s): PT ADOPTED-FAMILY HHX UNKNOWN <Lane Gunn - Last Filed: 02/23/25 06:11> General Exam Limitations: no limitations General appearance: alert, in no apparent distress Head exam: Present: atraumatic, normocephalic, normal inspection Eye exam: Present: normal appearance, PERRL, EOMI. Absent: scleral icterus, conjunctival injection, periorbital swelling ENT exam: Present: normal exam, mucous membranes moist Neck exam: Present: normal inspection. Absent: tenderness, meningismus, lymphadenopathy Respiratory exam: Present: normal lung sounds bilaterally. Absent: respiratory distress, wheezes, rales, rhonchi, stridor Cardiovascular Exam: Present: regular rate, normal rhythm, normal heart sounds. Absent: systolic murmur, diastolic murmur, rubs, gallop, clicks GI/Abdominal exam: Present: soft, normal bowel sounds. Absent: distended, tenderness, guarding, rebound, rigid Extremities exam: Present: normal inspection, full ROM, normal capillary refill. Absent: tenderness, pedal edema, joint swelling, calf tenderness Back exam: Present: normal inspection Neurological exam: Present: alert, oriented X3, CN II-XII intact Psychiatric exam: Present: normal affect, normal mood Skin exam: Present: warm, dry, intact, normal color. Absent: rash <Lane Gunn - Last Filed: 02/23/25 06:11> Respiratory exam: Present: chest wall tenderness <Mejia Francois - Last Filed: 02/23/25 08:23> Course <Lane Gunn - Last Filed: 02/23/25 06:11> Vital Signs 02/23/25 02/23/25 02/23/25 03:31 04:15 05:00 Temperature 97.8 F Pulse Rate 77 75 76 Respiratory 18 18 12 Rate Blood Pressure 141/77 143/85 151/71 O2 Sat by Pulse 97 97 97 Oximetry 02/23/25 06:00 Temperature Pulse Rate 81 Respiratory 16 Rate Blood Pressure 140/67 O2 Sat by Pulse 96 Oximetry - Reevaluation(s) Reevaluation #1: 02/23/25 06:12 Medical records reviewed (Lane Gunn) Reevaluation #2: 02/23/25 06:12 Patient pain difficult to control improved after second medication (Lane Gunn) Reevaluation #3: 02/23/25 06:12 Patient informed of results questions answered (Lane Gunn Wing) Reevaluation #4: Was pt. sent in by a medical professional or institution (JOAQUIN Shah, ACCOUNT PROCESSOR, urgent care, hospital, or fci...) When possible be specific @ -no Did you speak to anyone other than the patient for history (EMS, parent, family, police, friend...)? What history was obtained from this source @ -no Did you review nursing and triage notes (agree or disagree)? Why? @ -agree Are old charts reviewed (outside hosp., previous admission, EMS record, old EKG, old radiological studies, urgent care reports/EKG's, fci records)? Report findings @ -yes Differential Diagnosis (chest pain, altered mental status, abdominal pain women, abdominal pain men, vaginal bleeding, weakness, fever, dyspnea, syncope, headache, dizziness, GI bleed, back pain, seizure, CVA, palpatations, mental health, musculoskeletal)? @ -prior EKG interpreted by me (3pts min.). @ -yes X-rays interpreted by me (1pt min.). @ -yes negative for acute disease CT interpreted by me (1pt min.). @ -no U/S interpreted by me (1pt. min.). @ -no What testing was considered but not performed or refused? (CT, X-rays, U/S, labs)? Why? @ -none What meds were considered but not given or refused? Why? @ -none Did you discuss the management of the patient with other professionals (pro fessionals i.e. JOAQUIN Shah, ACCOUNT PROCESSOR, lab, RT, psych nurse, social worker masters, probate lawyer, teacher, alumni relations officer, patient case manager)? Give summary @ -no Was smoking cessation discussed for >3mins.? @ -no Was critical care preformed (if so, how long)? @ -no Were there social determinants of health that impacted care today? How? (Homelessness, low income, unemployed, alcoholism, drug addiction, transportation, low edu. Level, literacy, decrease access to med. care, long-term, rehab)? @ -none Was there de-escalation of care discussed even if they declined (Discuss DNR or withdrawal of care, Hospice)? DNR status @ -no What co-morbidities impacted this encounter? (DM, HTN, Smoking, COPD, CAD, Cancer, CVA, ARF, Chemo, Hep., AIDS, mental health diagnosis, sleep apnea, morbid obesity)? @ -none Was patient admitted / discharged? Hospital course, mention meds given and route, prescriptions, significant lab abnormalities, going to OR and other pertinent info. @ - Undiagnosed new problem with uncertain prognosis? @ -no Drug Therapy requiring intensive monitoring for toxicity (Heparin, Nitro, Insulin, Cardizem)? @ -no Were any procedures done? @ -no Diagnosis/symptom? @ - Acute, or Chronic, or Acute on Chronic? @ -Acute Uncomplicated (without systemic symptoms) or Complicated (systemic symptoms)? @ -Complicated Side effects of treatment? @ -no Exacerbation, Progression, or Severe Exacerbation? @ -exacerbation Poses a threat to life or bodily function? How? (Chest pain, USA, RI, pneumonia, PE, COPD, DKA, ARF, appy, cholecystitis, CVA, Diverticulitis, Homicidal, Suicidal, threat to staff... and all critical care pts) @ -yes (Lane Gunn) Reevaluation #5: Differential Chest Pain: Stable Angina, Unstable Angina, STEMI, NSTEMI Aortic Dissection, Pneumothorax, Musculoskeletal, Esophageal Spasm GERD, Cholecystitis, Pancreatitis, Zoster, this is not meant to be an all-inclusive list. Differential Back Pain: Strain, zoster, cauda equina syndrome, epidural abscess, vertebral osteomyelitis, discitis, fracture, subluxation, disc herniation, DJD, spinal stenosis, dissection, AAA, pancreatitis, peptic ulcer disease, pyelonephritis, kidney stone, this is not meant to be an all-inclusive list. (Lane Gunn) Chest Pain MDM <Mejia Francois - Last Filed: 02/23/25 08:23> - MDM Was pt. sent in by a medical professional or institution (, PA, ACCOUNT PROCESSOR, urgent care, hospital, or fci...) When possible be specific @ -No Did you speak to anyone other than the patient for history (EMS, parent, family, police, friend...)? What history was obtained from this source @ -No Did you review nursing and triage notes (agree or disagree)? Why? @ -I reviewed and agree with nursing and triage notes Were old charts reviewed (outside hosp., previous admission, EMS record, old EKG, old radiological studies, urgent care reports/EKG's, fci records)? Report findings @ -No old charts were reviewed Differential Diagnosis traumatic injury from fall EKG interpreted by me (3pts min.). @ -As above X-rays interpreted by me (1pt min.). @X-ray of the chest and right shoulder negative for traumatic injury CT interpreted by me (1pt min.). @ -CT of the chest shows fifth rib fracture no pulmonary embolism. U/S interpreted by me (1pt. min.). @ -None done What testing was considered but not performed or refused? (CT, X-rays, U/S, labs)? Why? @ -None What meds were considered but not given or refused? Why? @ -None Did you discuss the management of the patient with other professionals (professionals i.e. , PA, ACCOUNT PROCESSOR, lab, RT, psych nurse, social worker masters, probate lawyer, teacher, alumni relations officer, patient case manager)? Give summary @ -No Was smoking cessation discussed for >3mins.? @ -No Was critical care preformed (if so, how long)? @ -No Were there social determinants of health that impacted care today? How? (Homelessness, low income, unemployed, alcoholism, drug addiction, transportation, low edu. Level, literacy, decrease access to med. care, long-term, rehab)? @ -No Was there de-escalation of care discussed even if they declined (Discuss DNR or withdrawal of care, Hospice)? DNR status @ -No What co-morbidities impacted this encounter? (DM, HTN, Smoking, COPD, CAD, Cancer, CVA, ARF, Chemo, Hep., AIDS, mental health diagnosis, sleep apnea, morbid obesity)? @ -None Was patient admitted / discharged? Hospital course, mention meds given and route, prescriptions, significant lab abnormalities, going to OR and other pertinent info. @ -69-year-old female, care signed out at shift change awaiting CT angiography of the chest. Patient had fallen but was also having some nonspecific chest discomfort. CT does reveal evidence of fifth rib fracture. Patient is offered admission for further evaluation and treatment given the frequency of her falls. She declined states she is receiving an outpatient workup for this. She is resting comfortably when reevaluated and is requesting discharge with pain medication. Given incentive spirometer Undiagnosed new problem with uncertain prognosis? @ -No Drug Therapy requiring intensive monitoring for toxicity (Heparin, Nitro, Insulin, Cardizem)? @ -No Were any procedures done? @ -No Diagnosis/symptom? @ -Fall, rib fracture Acute, or Chronic, or Acute on Chronic? @Acute Uncomplicated (without systemic symptoms) or Complicated (systemic symptoms)? @ -Default Side effects of treatment? @ -No Exacerbation, Progression, or Severe Exacerbation? @ -No Poses a threat to life or bodily function? How? (Chest pain, [place], [place], pneumonia, PE, COPD, DKA, ARF, appy, cholecystitis, CVA, Diverticulitis, Homicidal, Suicidal, threat to staff... and all critical care pts) @ -No (Mejia Francois) Disposition Is patient prescribed a controlled substance at d/c from ED?: No Time of Disposition: 06:00 <Lane Gunn - Last Filed: 02/23/25 06:11> <Mejia Francois - Last Filed: 02/23/25 08:23> Clinical Impression: Fall, Chest pain, Back pain, Weakness Disposition: HOME SELF-CARE Condition: Good Instructions (If sedation given, give patient instructions): Fall Prevention for Older Adults (ED), Rib Fracture (ED) Prescriptions: HYDROcodone/APAP 5-325MG [[place] 5-325] 1 tab PO Q6HR PRN #12 tab PRN Reason: Pain Referrals: Camron Byrne DO [Primary Care Provider] - 1-2 days
[2025-02-23] MEDS: MORPHINE SULFATE 4 MG/ML SYRINGE IV STA (04:15)
[2025-02-23] MEDS: SODIUM CHLORIDE 0.9% 1,000 ML IV SCH (04:15)
[2025-02-23 05:20] LABS: INR 0.9 (<1.2); Prothrombin Time 10.6 sec (10.0-12.5)
[2025-02-23 05:29] LABS: Basophils # (A) 0.06 10*3/uL (0.00-0.10); Basophils % (A) 0.6 %; Eosinophils # (A) 0.01 10*3/uL (0.04-0.35); Eosinophils % (A) 0.1 %; HCT 38.8 % (37.2-46.3); HGB 13.3 g/dL (12.0-15.0); Lymphocytes # (A) 0.91 10*3/uL (0.90-5.00); Lymphocytes % (A) 9.1 %; MCH 29.8 pg (27.0-32.0); MCHC 34.3 g/dL (32.0-37.0); Mean Platelet Volume 10.7 fL (9.5-12.2); Monocytes # (A) 0.34 10*3/uL (0.20-1.00); Monocytes % (A) 3.4 %; Neutrophils % (A) 86.1 %; Platelet Count 227 10*3/uL (140-440); RBC 4.46 10*6/uL (4.10-5.20); RDW 12.1 % (11.5-14.5); WBC 9.99 10*3/uL (4.50-10.00)
[2025-02-23 05:33] LABS: ALT 28 U/L (4-34); AST 28 U/L (14-36); African American GFR (CKD) >90 (>60 ml/min/1.73 sqM); Albumin 4.7 g/dL (3.5-5.0); Alkaline Phosphatase 97 U/L (38-126); Anion Gap 11 mmol/L; Blood Urea Nitrogen 20 mg/dL (7-17); Carbon Dioxide 26 mmol/L (22-30); Chloride 99 mmol/L (98-107); Glucose 182 mg/dL (74-99); Lipase 141 U/L (23-300); Magnesium 1.8 mg/dL (1.6-2.3); Non-African American GFR(CKD) >90 (>60 ml/min/1.73 sqM); Phosphorus 3.5 mg/dL (2.5-4.5); Potassium 4.5 mmol/L (3.5-5.1); Sodium 136 mmol/L (137-145); Total Bilirubin 0.7 mg/dL (0.2-1.3); Total Protein 7.6 g/dL (6.3-8.2)
[2025-02-23 05:41] LABS: NT-Pro-B-Type Natriuretic Pept 40 pg/mL
[2025-02-23 06:06] LABS: Partial Thromboplastin Time 17.6 sec (22.0-30.0)
[2025-02-23] MEDS: KETOROLAC 15 MG/ML 1 ML VIAL IVP STA (06:10)
--- NOTE | 2025-02-23 06:32 | XR ---
EXAM: XR Chest, 2 Views CLINICAL HISTORY: ITS.REASON XR Reason: pain TECHNIQUE: Frontal and lateral views of the chest. COMPARISON: CT chest February 17, 2025 IMPRESSION: 1. Cardiomegaly with mild dependent atelectatic changes and hypoinflated lungs. Otherwise, no acute cardiopulmonary abnormality.
[2025-02-23 06:53] VITALS: RESP 16
--- NOTE | 2025-02-23 07:10 | XR ---
EXAMINATION TYPE: XR shoulder complete RT DATE OF EXAM: 02/23/2025 7:02 AM COMPARISON: None. CLINICAL INDICATION: Female, 69 years old with history of fall, Pain TECHNIQUE: XR shoulder complete RT view(s) obtained. FINDINGS: The humeral head articulates with the glenoid. There is some degenerative loss of joint space through the glenohumeral junction. The acromio-clavicular junction is hypertrophied. No acute fractures or dislocations are evident. A follow up study can be performed 7-10 days from acute trauma for continued pain. MRI can be perfor med if soft tissue evaluation would be of benefit. IMPRESSION: 1. No acute osseous shoulder abnormality. Mild Degenerative changes are present. [facility], , 02/23/2025 7:07 AM
--- NOTE | 2025-02-23 07:55 | CT ---
EXAMINATION TYPE: CT angio chest DATE OF EXAM: 02/23/2025 7:07 AM COMPARISON: 02/17/2025 CLINICAL INDICATION: Female, 69 years old with history of PE, , fall, back and chest pain, TECHNIQUE: CT of the chest is performed on a spiral scan at 2 mm thick sections. Study is performed with intravenous contrast timed for evaluation for pulmonary embolism. This will limit additional po rtions of the evaluation. 10mm MIP images reconstructed by the technologist are reviewed on the comp uter in the coronal and sagittal planes. Contrast used:100 mL of Isovue 370 , (none if empty) Oral contrast used: (none if empty) CT DLP: 414.7 mGycm, Automated exposure control for dose reduction was used. FINDINGS: No persistent filling defects are evident to suggest an acute pulmonary embolism. No mediastinal or hilar adenopathy enlarged by CT criteria is evident. The ascending aorta diameter at the level of the main pulmonary artery is 3.7 cm. The main pulmonary artery diameter at the bifurcation is 3.1 cm. There is a 1.3 cm nodular density within the medial right apex. Series 406 image 28. Additional dyllan p for neoplasm is recommended. There may be some 0.6 cm thickening along the fissure on the right, ex ample image 401 image 54 lung windows. There may be some streak atelectasis within the right lower lobe. There is a new minimally displaced right fifth rib fractures along the right posterior lateral upper lung field, image 46. No pneumothorax is evident. There appears to be an old resection of the section of the sixth rib No significant coronary artery calcifications. Limited CT sections were through the upper abdomen. Upper abdomen appears unremarkable. IMPRESSION: 1. No acute pulmonary embolism. 2. New minimally displaced posterior lateral right fifth rib fracture. 3. Suspicious nodule right apex, PET/CT recommended. 4. There may be some atelectasis within the right lower lung field. [facility], , 02/23/2025 7:53 AM
[2025-02-23 08:48] VITALS: BP 133/76; PULSE 78
== END 2025-02-23 08:48 | disposition home or self-care (01) ==
LOC: EC 03:28
DX: S22.31XA Fracture of one rib, right side, initial encounter for closed fracture (principal); R53.1 Weakness; M54.9 Dorsalgia, unspecified; R07.89 Other chest pain; W18.30XA Fall on same level, unspecified, initial encounter
CPT/HCPCS: 36415; 93005; 85379; 83880; 80053; 83605; 83690; 83735; 84100; 84484; 85025; 85610; 85730; 73030; 71046; 71275; 99285; 96374; 96375; 96361; J2270; J1885; Q9967

== ENCOUNTER → 2025-02-26 | Outpatient (CLI) | payer MEDICARE ==
--- NOTE | 2025-02-26 20:52 | MR ---
INDICATION: Patient age:Female; 69 years old; Reason for study: C54.1; PHH. Metastatic endometrial carcinoma, rule out brain metastases, dizziness, falling. COMPARISON: PET CT 08/19/2022, 06/08/2019, 11/03/2018, 04/23/2016. TECHNIQUE: Multi planar, multi sequence imaging was performed through the brain. The patient was then given 10 cc of Gadobutrol intravenously and multi planar, T1 fat-saturation images were obtained. FINDINGS: Motion degradation. The duke-white junctions, ventricular system, basal cisterns appear unremarkable. Age-appropriate cer ebral parenchymal volume. Diffusion-weighted imaging shows no evidence of restricted diffusion to sug gest acute/subacute infarct. Intracranial arterial flow voids are maintained. Midline structures show no abnormality. Patchy areas of high T2/FLAIR signal intensity are seen within the supratentorial pe riventricular and subcortical white matter. The largest is within the right frontal lobe periventricu lar white matter measuring up to 6 mm (series 601, image 36). Approximately 10 foci. The susceptibili ty weighted images do not reveal any evidence for micro-hemorrhage. After administration of gadoliniu m, no abnormal enhancement is seen. The bone marrow signal is within normal limits. The paranasal sinuses are unremarkable. Bilateral ap hakia. IMPRESSION: 1. No evidence of intracranial mass or acute/subacute infarct. No abnormal enhancement to suggest met astasis. 2. Minimal nonspecific white matter changes, likely related to small vessel ischemic disease. [facility], , 02/26/2025 8:49 PM
== END | disposition home or self-care (01) ==
LOC: RADMRIMAIN 17:54
PROVIDERS: ATTEND Internal Medicine Hematology & Oncology
DX: C54.1 Malignant neoplasm of endometrium (principal); E78.5 Hyperlipidemia, unspecified; H27.03 Aphakia, bilateral; Z71.3 Dietary counseling and surveillance
CPT/HCPCS: 70553; A9585

== ENCOUNTER → 2025-04-17 | Outpatient (CLI) | payer MEDICARE ==
--- NOTE | 2025-04-17 11:47 | XR ---
EXAMINATION TYPE: XR knee complete RT DATE OF EXAM: 04/17/2025 CLINICAL INDICATION: Female, 69 years old with history of M25.561 PAIN IN RIGHT KNEE, pain TECHNIQUE: Frontal, lateral, and oblique views of the knee were obtained. COMPARISON: Prior right knee x-ray August 12, 2024 FINDINGS: There is no acute fracture/dislocation evident in right knee. Metallic hardware from total right knee arthroplasty is redemonstrated. Hardware position is stable and satisfactory. The overlyi ng soft tissue appears unremarkable. IMPRESSION: As above. [facility], , 04/17/2025 11:45 AM
== END | disposition home or self-care (01) ==
LOC: RADXRMAIN 11:22
DX: M25.561 Pain in right knee (principal); Z96.651 Presence of right artificial knee joint

== ENCOUNTER → 2025-05-27 | Outpatient (CLI) | payer MEDICARE ==
--- NOTE | 2025-05-28 07:39 | CT ---
EXAMINATION TYPE: CT chest wo con DATE OF EXAM: 05/27/2025 3:58 PM COMPARISON: 02/23/2025, 02/09/2024 08/24/2023 CLINICAL INDICATION: Female, 70 years old with history of C54.1 MALIGNANT NEOPLASM OF ENDOMETRIUM; PH H, f/u lung ca TECHNIQUE: Multiple axial images were obtained through the chest. Sagittal and coronal reformats were created for review. MIP was performed on a separate workstation. Contrast used: mL of (None if empty) Oral contrast used: (None if empty) CT DLP: 461.8 mGycm, Automated exposure control for dose reduction was used. FINDINGS: LUNGS/ PLEURA: Right apical pulmonary nodule measuring 11 mm similar dating back to 08/24/2023. Stabl e thickening along the fissures best appreciated on sagittal imaging No focal consolidation, pneumoth orax or pleural effusion. AIRWAY: Patent and unremarkable. HEART: Size within normal limits. Mild coronary artery calcifications present. MEDIASTINUM: No gross evidence of adenopathy. VASCULATURE: No aortic aneurysm. MUSCULOSKELETAL: Mild disc degeneration changes are present throughout the thoracolumbar spine second lucas to osteophyte formation and facet joint arthropathy., postsurgical changes to the left right ribs . SOFT TISSUES/LYMPH NODES: Unremarkable. LOWER NECK: No significant findings. UPPER ABDOMEN: No significant findings. IMPRESSION: 1. Subtle groundglass opacities in the right upper lung correlate for infectious/inflammatory proces s. 2. Stable right apical pulmonary nodule measuring 11 mm back to at least 2022.. Scattered groundglas s opacities in the right upper lung. No new or enlarging pulmonary nodules. 3. Stable post surgical changes to the right lung [facility], , 05/28/2025 7:37 AM
== END | disposition home or self-care (01) ==
LOC: RADCTMAIN 15:35
PROVIDERS: ATTEND Internal Medicine Hematology & Oncology
DX: C54.1 Malignant neoplasm of endometrium (principal); E78.5 Hyperlipidemia, unspecified; Z71.3 Dietary counseling and surveillance; R91.8 Other nonspecific abnormal finding of lung field; Z98.890 Other specified postprocedural states
CPT/HCPCS: 71250